=== PATIENT | male | born 1985 | race Two or more races ===

== ENCOUNTER 2020-05-19 11:49 | Outpatient (REF) | payer OTHER, SELFPAY | END 2020-05-19 11:50 | disposition home or self-care (01) | LOC: HO.LAB 11:49 | PROVIDERS: Visit Provider Internal Medicine | DX: Z20.828 Contact with and (suspected) exposure to other viral communicable diseases (principal) | CPT/HCPCS: 36415; 87635 ==

== ENCOUNTER 2020-05-22 08:09 | Outpatient (REF) | payer OTHER, SELFPAY ==
[2020-05-22 09:27] LABS: SARS COV2 PCR INHOUSE POSITIVE (Negative)
--- NOTE | 2020-05-23 12:09 | MHC.IC ---
COVID INFORMATION GIVEN TO GAY TORRES AT [facility] ON 05/22/2020
== END 2020-05-22 08:10 | disposition home or self-care (01) ==
LOC: HO.LAB 08:09
PROVIDERS: PCP Internal Medicine; Visit Provider Internal Medicine
DX: Z20.828 Contact with and (suspected) exposure to other viral communicable diseases (principal)
CPT/HCPCS: 36415; 87635

== ENCOUNTER 2020-05-29 21:25 | Emergency (ER) | payer OTHER, SELFPAY ==
[2020-05-29 21:28] VITALS: PULSE 109; RESP 18; TEMP 36.9; O2SAT 97; BMI 36.2
--- NOTE | 2020-05-29 21:40 | XR_ITS ---
EXAMINATION: XR CHEST CLINICAL INFORMATION: Chest tightness COMPARISON: 11/24/2019 TECHNIQUE: Frontal view of the chest was obtained. FINDINGS: No significant abnormality is noted involving the heart, lungs, mediastinum, bony thorax or soft tissues. IMPRESSION: Unremarkable examination.
--- NOTE | 2020-05-29 21:40 | ECG_ITS ---
Test Reason : CHEST TIGHTNESS Blood Pressure : / mmHG Vent. Rate : 092 BPM Atrial Rate : 092 BPM P-R Int : 144 ms QRS Dur : 082 ms QT Int : 340 ms P-R-T Axes : 052 008 046 degrees QTc Int : 420 ms Normal sinus rhythm Possible Left atrial enlargement Borderline ECG No significant changes seen Referred By: Generic ED Physician Electronically Signed By:DESTIN JACOBS MD
[2020-05-29 21:59] LABS: MANUAL DIFF FLAG NO
[2020-05-29 22:00] LABS: Basophils Absolute Auto 0.1 X10*3/uL (0.0-0.2); Basophils Percent Auto 0.6 % (0-2); Eosinophils Absolute Auto 0.2 X10*3/uL (0.0-0.4); Eosinophils Percent Auto 2.2 % (0-4); Hematocrit 44.4 % (42-52); Hemoglobin 14.5 g/dl (14.0-18.0); Imm Gran Abs Auto 0.02 X10*3/uL (0.00-0.03); Imm Gran Pct Auto 0.2 % (0.0-0.4); Lymphocytes Absolute Auto 1.9 X10*3/uL (1.2-4.9); Lymphocytes Percent Auto 19.2 % (20-40); Mean Corpuscular HGB Conc 32.7 g/dl (31.0-36.0); Mean Corpuscular Hemoglobin 28.7 pg (27.0-33.0); Mean Corpuscular Volume 87.9 fL (80-98); Mean Platelet Volume 10.6 fL (9.4-12.4); Monocytes Absolute Auto 0.8 X10*3/uL (0.1-1.2); Monocytes Percent Auto 8.4 % (2-11); Neutrophils Absolute Auto 6.9 X10*3/uL (2.0-8.3); Neutrophils Percent Auto 69.4 % (45-73); Platelet Count 360 X10*3/uL (160-400); Red Blood Count 5.05 X10*6/uL (4.60-5.80); Red Cell Distribution Width 12.4 % (11.0-16.0)
--- NOTE | 2020-05-29 22:12 | ED.CHESTPAIN ---
HPI - Chest Pain General Chief Complaint: Chest Pain Stated Complaint: CHEST TIGHTNESS Time Seen by Provider: 05/29/20 22:12 Source: patient Mode of arrival: ambulatory Limitations: no limitations History of Present Illness HPI narrative: patient was positive for COVID 19 05/18 was doing better for last 4 days began feeling chest tightness and palpitation heart rate reaching to 110 denies any shortness of breath or cough otherwise he feels fine patient denies any caffeine use or any anxiety MD complaint: chest discomfort Onset (ago): day(s) (4) Timing of current episode: episodic Prior episodes: No Onset: during rest Quality: tightness Exacerbating factors: nothing Context: recent illness Risk Factors Coronary artery disease risk factors: none Thoracic aortic dissection risk factors: none Related Data Allergies Allergy/AdvReac Type Severity Reaction Status Date / Time No Known Allergies Allergy Unverified 05/04/20 16:39 [No Known Allergies*] Review of Systems Review of Systems: REVIEW OF SYSTEMS: Pertinent positives and negatives are stated above in the history. GEN: no fevers, chills, fatigue HEENT: no nasal congestion, sore throat, ear pain NEURO: no headache, dizziness, focal weakness PULM: no cough, shortness of breath CV: no LE edema ABD: no abdominal pain, nausea, vomiting, diarrhea : no dysuria, urgency, frequency SKIN: no rash ROS otherwise negative x 10 PMFSH Past Medical History Medical History No known health problems Surgical History No history of previous surgery Social History Social History Alcohol intake: never Smoking Status: Never smoker Use of substances other than those prescribed or required for medical reasons: No Advance Directives: No Advance Directives Information Provided: Yes Physical Exam Vital Signs: Vital Signs: Vital Signs Temp Pulse Resp Pulse Ox 05/30/20 00:11 88 98 05/29/20 21:28 98.5 F 109 H 18 97 Body Mass Index 36.2 Appearance: Alert. Oriented X3. No acute distress. Eyes: Pupils equal, round and reactive to light. ENT: Pharynx normal. Neck: Normal inspection. Neck supple. CVS: sinus tachycardia, Pulses normal. no murmur Respiratory: No respiratory distress. Breath sounds normal. Abdomen: Soft and nontender. Skin: Skin warm and dry. Normal skin color. Normal skin turgor. Extremities: No lower extremity edema. Good range of movement Neuro: Oriented X 3. No motor deficit. No sensory deficit. Course Course Course Narrative: patient with benign palpitation D-dimer negative chest x-ray negative blood workup also negative patient reassured, also advised to drink plenty of fluids and to relax. Patient also has chronically elevated creatinine advised to follow-up with primary care doctor MDM - Chest Pain Differential Diagnosis Differential diagnosis: Unlikely pneumothorax, atypical chest pain, costochondritis and chest pain Differential diagnosis: pulmonary embolus Lab Data Result diagrams: 05/29/20 21:54 05/29/20 21:54 Labs: Lab Results 05/29/20 05/29/20 05/29/20 Range/Units 21:54 21:54 21:54 WBC 10.0 (4.8-10.8) X10*3/uL RBC 5.05 (4.60-5.80) X10*6/uL Hgb 14.5 (14.0-18.0) g/dl Hct 44.4 (42-52) % MCV 87.9 (80-98) fL MCH 28.7 (27.0-33.0) pg MCHC 32.7 (31.0-36.0) g/dl RDW 12.4 (11.0-16.0) % Plt Count 360 (160-400) X10*3/uL MPV 10.6 (9.4-12.4) fL Immature Gran % (Auto) 0.2 (0.0-0.4) % Neut % (Auto) 69.4 (45-73) % Lymph % (Auto) 19.2 L (20-40) % [place] % (Auto) 8.4 (2-11) % Eos % (Auto) 2.2 (0-4) % Baso % (Auto) 0.6 (0-2) % Lymph # (Auto) 1.9 (1.2-4.9) X10*3/uL [place] # (Auto) 0.8 (0.1-1.2) X10*3/uL Eos # (Auto) 0.2 (0.0-0.4) X10*3/uL Baso # (Auto) 0.1 (0.0-0.2) X10*3/uL Abs Immat Gran (auto) 0.02 (0.00-0.03) X10*3/uL Absolute Neuts (auto) 6.9 (2.0-8.3) X10*3/uL Absolute Nucleated RBC 0.000 (0.0-0.012) X10*3/uL Nucleated RBC % (auto) 0.0 (0.0-0.2) /100WBC D-Dimer NG/ML Hold Blue Top SEE NOTE Sodium 142 (135-145) mmol/L Potassium 4.1 (3.3-5.1) mmol/l Chloride 107 (96-108) mmol/L Carbon Dioxide 23 (22-29) mmol/L Anion Gap 16 (12-20) BUN 21 H (9-16) mg/dL Creatinine 1.41 H (0.5-1.4) mg/dL Estim Creat Clear Calc 77.7 Estimated GFR 58 Random Glucose 139 H (60-115) mg/dL Calcium 8.9 (8.4-10.2) mg/dL Troponin I High Sens (<3.5-35.0) ng/L 05/29/20 05/29/20 Range/Units 21:54 23:46 WBC (4.8-10.8) X10*3/uL RBC (4.60-5.80) X10*6/uL Hgb (14.0-18.0) g/dl Hct (42-52) % MCV (80-98) fL MCH (27.0-33.0) pg MCHC (31.0-36.0) g/dl RDW (11.0-16.0) % Plt Count (160-400) X10*3/uL MPV (9.4-12.4) fL Immature Gran % (Auto) (0.0-0.4) % Neut % (Auto) (45-73) % Lymph % (Auto) (20-40) % [place] % (Auto) (2-11) % Eos % (Auto) (0-4) % Baso % (Auto) (0-2) % Lymph # (Auto) (1.2-4.9) X10*3/uL [place] # (Auto) (0.1-1.2) X10*3/uL Eos # (Auto) (0.0-0.4) X10*3/uL Baso # (Auto) (0.0-0.2) X10*3/uL Abs Immat Gran (auto) (0.00-0.03) X10*3/uL Absolute Neuts (auto) (2.0-8.3) X10*3/uL Absolute Nucleated RBC (0.0-0.012) X10*3/uL Nucleated RBC % (auto) (0.0-0.2) /100WBC D-Dimer < 200 NG/ML Hold Blue Top Sodium (135-145) mmol/L Potassium (3.3-5.1) mmol/l Chloride (96-108) mmol/L Carbon Dioxide (22-29) mmol/L Anion Gap (12-20) BUN (9-16) mg/dL Creatinine (0.5-1.4) mg/dL Estim Creat Clear Calc Estimated GFR Random Glucose (60-115) mg/dL Calcium (8.4-10.2) mg/dL Troponin I High Sens < 3.5 (<3.5-35.0) ng/L ECG Data ECG #1: Attestation: I personally reviewed and interpreted this ECG as follows: ECG interpretation date: 05/29/20 ECG interpretation time: 21:46 Prior ECG tracings: available for review Interpretation: EKGRate: 92 Rhythm: sinus [place]: normal Normal P waves. Normal RIVERA. Normal QRS complex. ST T wave : normal EKG Discharge Plan Discharge Clinical Impression: Heart palpitations Patient Disposition: Home, Self-Care Instructions: Heart Palpitations (ED) Additional Instructions: drink plenty of fluids and follow with primary care doctor. 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
[2020-05-29 22:31] LABS: Anion Gap 16 (12-20); Blood Urea Nitrogen 21 mg/dL (9-16); Calcium 8.9 mg/dL (8.4-10.2); Carbon Dioxide 23 mmol/L (22-29); Chloride 107 mmol/L (96-108); Creatinine Clr Calc Pharmacy 77.7; Estimated Glomerular Filt Rate 58; Glucose Random 139 mg/dL (60-115); Potassium 4.1 mmol/l (3.3-5.1); Sodium 142 mmol/L (135-145)
[2020-05-29 22:36] LABS: Troponin-I High Sensitivity < 3.5 ng/L (<3.5-35.0)
[2020-05-30 00:11] VITALS: PULSE 88; O2SAT 98
[2020-05-30 00:41] LABS: D Dimer < 200 NG/ML
== END 2020-05-30 01:13 | disposition home or self-care (01) ==
PROVIDERS: Emergency Provider Internal Medicine; PCP Internal Medicine
DX: R00.2 Palpitations (principal); Z86.19 Personal history of other infectious and parasitic diseases
CPT/HCPCS: 36415; 71045; 80048; 84484; 85025; 85379; 93005; 99284

== ENCOUNTER 2020-06-19 15:01 | Emergency (ER) | payer OTHER, SELFPAY ==
[2020-06-19 15:30] VITALS: BP 149/77; PULSE 124; RESP 17; TEMP 37.1; O2SAT 97; BMI 36.0
--- NOTE | 2020-06-19 15:44 | ED_ITS ---
HPI - Extremity Problem General Chief complaint: Extremity Problem <OG Redmond Last Filed: 06/19/20 15:50> Stated complaint: gout <OG Redmond Last Filed: 06/19/20 15:50> Time Seen by Provider: 06/19/20 15:16 <OG Redmond Last Filed: 06/19/20 15:50> Source: patient <OG Redmond Last Filed: 06/19/20 15:50> Mode of arrival: ambulatory <OG Redmond Last Filed: 06/19/20 15:50> Limitations: no limitations <OG Redmond Last Filed: 06/19/20 15:50> History of Present Illness HPI Narrative: 34yoM c PMHx of Gout presenting to the ED c c/o left ankle pain swelling that started yesterday worse today. Reports this is the way his gout usually always presents in the left ankle. He reports that he has been drinking alcohol and eating more red meat lately. Denies any other symptoms complaints or concerns at this time. <OG Redmond Last Filed: 06/19/20 15:50> Related Data Home medications: Home Medications Medication Instructions Recorded Confirmed No Known Home Meds 06/19/20 06/19/20 Previous Rx's Medication Instructions Recorded naproxen 500 mg PO BID PRN #20 tab NS 06/19/20 prednisone 40 mg PO DAILY 7 Days #14 tab NS 06/19/20 tramadol 50 mg PO Q8H PRN #20 tab NS 06/19/20 <OG Redmond Last Filed: 06/19/20 15:50> Allergies/Adverse reactions: Allergies Allergy/AdvReac Type Severity Reaction Status Date / Time No Known Allergies Allergy Verified 06/19/20 15:29 [No Known Allergies*] <OG Redmond Last Filed: 06/19/20 15:50> Review of Systems Review of Systems: Constitutional:No Fever, No Chills Cardiovascular : No Chest Pain, No SOB, No Dyspnea on Exertion, No Orthopnea, No Edema, No Palpitations Respiratory : No Cough, No Sputum, No Wheezing, No Dyspnea Musculoskeletal : + joint pain, + Joint Swelling Skin : No Skin Lesions, No rash Neuro : No Weakness Heme/Lymph: No Lymphadenopathy <OG Redmond - Last Filed: 06/19/20 15:50> Yes all other systems are reviewed and are negative <OG Redmond - Last Filed: 06/19/20 15:50> [facility] Past Medical History Attestation statement: The following information was validated with the patient. <OG Redmond - Last Filed: 06/19/20 15:50> Medical History: Medical History No known health problems <OG Redmond - Last Filed: 06/19/20 15:50> Surgical History: Surgical History No history of previous surgery <OG Redmond - Last Filed: 06/19/20 15:50> Social History Social History: Social History Alcohol intake: never Smoking Status: Never smoker Use of substances other than those prescribed or required for medical reasons: No Advance Directives: No Advance Directives Information Provided: Yes <OG Redmond - Last Filed: 06/19/20 15:50> Physical Exam Vital Signs: Vital Signs: Vital Signs Temp Pulse Resp BP Pulse Ox 06/19/20 15:30 98.7 F 124 H 17 149/77 H 97 Body Mass Index 36.0 vital signs have been reviewed as normal and appeared to be correct. Blood pressure Hypertensive. Heart rate tachycardic. Respiration rate normal. Temperature normal. Oxygen saturation normal. <OG Redmond - Last Filed: 06/19/20 15:50> Vital Signs: Vital Signs Temp Pulse Resp BP Pulse Ox 06/19/20 15:30 98.7 F 124 H 17 149/77 H 97 Body Mass Index 36.0 <Daniel Rasmussen MD - Last Filed: 06/19/20 15:54> Appearance: Alert. Oriented X3. No acute distress. Head: Normal external exam. Normocephalic. Eyes: PERRLA. EOMI. Conjunctiva and sclera normal. Eyelids normal. ENT:Pharynx normal. Uvula midline. Moist mucous membranes. Neck: Normal inspection. Neck supple. FROM. No adenopathy. Thyroid Normal. No meningeal signs. No neck mass noted. CVS: Normal heart rate and rhythm. Heart sound normal. No murmurs noted. Pulses normal throughout. Respiratory: No respiratory distress. Painless inspiration. Breath sounds normal. Back: Full range of motion noted. Skin: Skin warm and dry. Normal skin color. Normal skin turgor. No rashes/lesions/lacerations noted. Extremities:Left ankle medial and lateral aspect c moderate STS and TTP. No calf tenderness. No lower extremity edema. Extremities exhibit normal range of motion. Extremities nontender. Neuro: Oriented X 3. No motor deficit. No sensory deficit. Reflexes normal. <OG Redmond - Last Filed: 06/19/20 15:50> Course Course Course Narrative: 34yoM c PMHx of Gout presenting to the ED c c/o left ankle pain swelling that started yesterday worse today. Reports this is the way his gout usually always presents in the left ankle. He reports that he has been drinking alcohol and eating more red meat lately. Denies any other symptoms complaints or concerns at this time. - patient with acute gout flare up he is hypertensive and tachycardic most l ikely related to his pain due to he denies any other symptoms including chest pain or shortness of breath or calf tenderness. Will DC home with symptomatic treatment along with instructions return if any new or worsening symptoms to follow-up with primary care provider. Patient understands agrees the plan. <OG Redmond - Last Filed: 06/19/20 15:50> I have reviewed the chart <Daniel Rasmussen MD - Last Filed: 06/19/20 15:54> Discharge Plan Discharge Clinical Impression: Gout <OG Redmond - Last Filed: 06/19/20 15:50> Patient Disposition: Home, Self-Care <OG Redmond - Last Filed: 06/19/20 15:50> Instructions: Crutch Instructions (ED), Gout (ED) <OG Redmond - Last Filed: 06/19/20 15:50> Prescriptions: New naproxen 500 mg tablet 500 mg PO BID PRN (Reason: pain) Qty: 20 RF: 0 prednisone 20 mg tablet 40 mg PO DAILY 7 Days Qty: 14 RF: 0 tramadol 50 mg tablet 50 mg PO Q8H PRN (Reason: pain) Qty: 20 RF: 0 No Action No Known Home Meds RF: 0 <OG Redmond - Last Filed: 06/19/20 15:50> Referrals: Scott Bullock MD [Primary Care Provider] - 2 days <OG Redmond - Last Filed: 06/19/20 15:50> Stand Alone Forms: Work/School Release <OG Redmond - Last Filed: 06/19/20 15:50> Print Language: Surinamese <OG Redmond - Last Filed: 06/19/20 15:50>
[2020-06-19] MEDS: predniSONE 20 MG TABLET 60 MG PO (15:56)
[2020-06-19] MEDS: NaPROXEN 500 MG TABLET PO (15:57)
== END 2020-06-19 16:09 | disposition home or self-care (01) ==
LOC: HO.ED 15:47
PROVIDERS: Emergency Provider Emergency Medicine; PCP Internal Medicine
DX: M10.9 Gout, unspecified (principal); M25.572 Pain in left ankle and joints of left foot; M25.472 Effusion, left ankle
CPT/HCPCS: 99283

== ENCOUNTER 2020-08-30 19:32 | Emergency (ER) | payer OTHER, SELFPAY ==
--- NOTE | 2020-08-30 08:14 | ECG_ITS ---
Test Reason : CHEST PAIN Blood Pressure : / mmHG Vent. Rate : 082 BPM Atrial Rate : 082 BPM P-R Int : 128 ms QRS Dur : 080 ms QT Int : 358 ms P-R-T Axes : 045 001 047 degrees QTc Int : 418 ms Normal sinus rhythm Normal ECG When compared with ECG of 29-MAY-2020 21:46, No significant change was found Referred By: Randa Ba Electronically Signed By:MAYDA PENG MD
--- NOTE | 2020-08-30 19:38 | XR_ITS ---
EXAMINATION: XR CHEST CLINICAL INFORMATION: Chest pain COMPARISON: 05/29/2020 TECHNIQUE: Frontal view of the chest was obtained. FINDINGS: No acute finding. No obvious failure or infiltrate. There is no effusion. Mediastinal contours are within normal limits. The hilar structures are comparable. There is no effusion. XR/XR chest 1V IMPRESSION: No acute process.
[2020-08-30 20:01] VITALS: BP 128/79; PULSE 88; RESP 16; TEMP 36.8; O2SAT 98; BMI 36.1
--- NOTE | 2020-08-30 21:14 | ED.CHESTPAIN ---
HPI - Chest Pain General Chief Complaint: Chest Pain Stated Complaint: chest pain Time Seen by Provider: 08/30/20 21:14 Source: patient Mode of arrival: ambulatory Limitations: no limitations History of Present Illness MD complaint: chest pain Pertinent past history: other (hx of palpitations and chest pain in past with negative EKG, troponin, ddimer) Onset (ago): hour(s) (2.5 but had episode yesterday reoccurred tonight at rest) Timing of current episode: constant Prior episodes: Yes Onset: during rest Pain location: left chest Pain radiation: left arm Severity: moderate Quality: aching and heaviness Relieving factors: nothing Exacerbating factors: supine Associated symptoms: dyspnea Treatment prior to arrival: none Related Data Previous Rx's Medication Instructions Recorded naproxen 500 mg PO BID PRN #20 tab NS 06/19/20 prednisone 40 mg PO DAILY 7 Days #14 tab NS 06/19/20 tramadol 50 mg PO Q8H PRN #20 tab NS 06/19/20 famotidine [Pepcid] 20 mg PO DAILY PRN #30 tab 08/30/20 Allergies Allergy/AdvReac Type Severity Reaction Status Date / Time No Known Allergies Allergy Verified 06/19/20 15:29 [No Known Allergies*] Review of Systems Review of Systems: Constitutional : No Weight loss, No Fever, No Chills ENT/Mouth : No sore throat, No Rhinorrhea Eyes: No Eye Pain, No Swelling Cardiovascular : pos Chest Pain, pos SOB, no Dyspnea on Exertion, No Orthopnea, No Edema, No Palpitations Respiratory : No Cough, No Sputum Gastrointestinal : no Nausea, No Vomiting, No Diarrhea, No abdominal Pain, No Hematochezia, No Melena Genitourinary : No Dysuria, No Urinary Frequency Musculoskeletal : No joint pain, No Myalgias, No Joint Swelling Skin : No Skin Lesions, No rash Neuro : No Weakness, No Numbness, No Dizziness, No Headache Psych : No Anxiety/Panic, No Depression Heme/Lymph: No Bruising, No Lymphadenopathy Endocrine : No Polyuria, No Polydipsia All other systems reviewed and are negative [facility] Past Medical History Attestation statement: The following information was validated with the patient. Medical History No known health problems Surgical History No history of previous surgery Social History Social History Alcohol intake: never Smoking Status: Never smoker Advance Directives: No Advance Directives Information Provided: Yes Physical Exam Vital Signs: Vital Signs: Last Vital Signs Temp 98.2 F 08/30/20 20:01 Pulse 88 08/30/20 20:01 Resp 16 08/30/20 20:01 BP 128/79 08/30/20 20:01 Pulse Ox 98 08/30/20 20:01 Body Mass Index 36.1 Appearance: Alert. Oriented X3. No acute distress. Eyes: Pupils equal, round and reactive to light. ENT: Pharynx normal. Neck: Normal inspection. Neck supple. CVS: Normal heart rate and rhythm. Pulses normal. Chest: nontender Respiratory: No respiratory distress. Breath sounds normal. Abdomen: Soft and non-tender. Skin: Skin warm and dry. Normal skin color. Normal skin turgor. Extremities: No lower extremity edema. No calf ttp Neuro: Oriented X 3. No motor deficit. No sensory deficit. Course Course Course Narrative: repeat trop negative, EKG nonischemic stable for DC CRI 1.5 to 1.4 today 1.7 given IVF will refer to nephrology and tell him to avoid NSAIDs MDM - Chest Pain MDM Narrative Medical decision making narrative: 35 yo male with chest pain yesterday then reoccured around 7pm tonight while at rest felt palpitations, has no sig ACS risk factors it seems atypical in nature PERC negative - distal pulses intact at this time will obtain troponin x 2, possible acid reflux hx of same in past but not on PPI at this time, dispo per results and findings. Lab Data Result diagrams: 08/30/20 21:20 08/30/20 21:20 Labs: Lab Results 08/30/20 08/30/20 08/30/20 Range/Units 21:20 21:20 21:20 WBC 9.7 (4.8-10.8) X10*3/uL RBC 5.06 (4.60-5.80) X10*6/uL Hgb 14.8 (14.0-18.0) g/dl Hct 44.6 (42-52) % MCV 88.1 (80-98) fL MCH 29.2 (27.0-33.0) pg MCHC 33.2 (31.0-36.0) g/dl RDW 12.8 (11.0-16.0) % Plt Count 320 (160-400) X10*3/uL MPV 11.1 (9.4-12.4) fL Immature Gran % (Auto) 0.1 (0.0-0.4) % Neut % (Auto) 57.0 (45-73) % Lymph % (Auto) 31.8 (20-40) % [place] % (Auto) 7.7 (2-11) % Eos % (Auto) 2.9 (0-4) % Baso % (Auto) 0.5 (0-2) % Lymph # (Auto) 3.1 (1.2-4.9) X10*3/uL [place] # (Auto) 0.8 (0.1-1.2) X10*3/uL Eos # (Auto) 0.3 (0.0-0.4) X10*3/uL Baso # (Auto) 0.1 (0.0-0.2) X10*3/uL Abs Immat Gran (auto) 0.01 (0.00-0.03) X10*3/uL Absolute Neuts (auto) 5.6 (2.0-8.3) X10*3/uL Absolute Nucleated RBC 0.000 (0.0-0.012) X10*3/uL Nucleated RBC % (auto) 0.0 (0.0-0.2) /100WBC Hold Blue Top SEE NOTE Sodium 140 (135-145) mmol/L Potassium 4.2 (3.3-5.1) mmol/l Chloride 104 (96-108) mmol/L Carbon Dioxide 26 (22-29) mmol/L Anion Gap 14 (12-20) BUN 23 H (9-16) mg/dL Creatinine 1.71 H (0.5-1.4) mg/dL Estim Creat Clear Calc 63.4 Estimated GFR 46 Random Glucose 100 (60-115) mg/dL Calcium 9.1 (8.4-10.2) mg/dL Total Bilirubin 0.4 (0.0-1.0) mg/dL AST 24 (5-37) U/L ALT 37 (0-40) U/L Alkaline Phosphatase 52 (39-117) U/L Troponin I High Sens (<3.5-35.0) ng/L Total Protein 7.4 (6.5-8.0) g/dL Albumin 4.0 (3.5-5.0) g/dL 08/30/20 Range/Units 21:20 WBC (4.8-10.8) X10*3/uL RBC (4.60-5.80) X10*6/uL Hgb (14.0-18.0) g/dl Hct (42-52) % MCV (80-98) fL MCH (27.0-33.0) pg MCHC (31.0-36.0) g/dl RDW (11.0-16.0) % Plt Count (160-400) X10*3/uL MPV (9.4-12.4) fL Immature Gran % (Auto) (0.0-0.4) % Neut % (Auto) (45-73) % Lymph % (Auto) (20-40) % [place] % (Auto) (2-11) % Eos % (Auto) (0-4) % Baso % (Auto) (0-2) % Lymph # (Auto) (1.2-4.9) X10*3/uL [place] # (Auto) (0.1-1.2) X10*3/uL Eos # (Auto) (0.0-0.4) X10*3/uL Baso # (Auto) (0.0-0.2) X10*3/uL Abs Immat Gran (auto) (0.00-0.03) X10*3/uL Absolute Neuts (auto) (2.0-8.3) X10*3/uL Absolute Nucleated RBC (0.0-0.012) X10*3/uL Nucleated RBC % (auto) (0.0-0.2) /100WBC Hold Blue Top Sodium (135-145) mmol/L Potassium (3.3-5.1) mmol/l Chloride (96-108) mmol/L Carbon Dioxide (22-29) mmol/L Anion Gap (12-20) BUN (9-16) mg/dL Creatinine (0.5-1.4) mg/dL Estim Creat Clear Calc Estimated GFR Random Glucose (60-115) mg/dL Calcium (8.4-10.2) mg/dL Total Bilirubin (0.0-1.0) mg/dL AST (5-37) U/L ALT (0-40) U/L Alkaline Phosphatase (39-117) U/L Troponin I High Sens < 3.5 (<3.5-35.0) ng/L Total Protein (6.5-8.0) g/dL Albumin (3.5-5.0) g/dL ECG Data ECG #1: Attestation: I personally reviewed and interpreted this ECG as follows: ECG interpretation date: 08/30/20 ECG interpretation time: 21:15 Interpretation: Rate: 92 Rhythm: NSR [place]: normal Normal P waves. Normal RIVERA. Normal QRS complex. ST T wave : normal no TERELL qTC: normal prior studies: no acute ischemia The study has been interpreted contemporaneously by me. . Scores Additional Scores PERC Score: Score: 0 Discharge Plan Discharge Clinical Impression: Atypical chest pain, Chronic renal insufficiency Patient Disposition: Home, Self-Care Instructions: Chest Pain (ED) Additional Instructions: return to ED for any worsening symptoms or concerns AVOID MOTRIN, ADVIL, NAPROSYN, ASPIRIN, ANY NSAIDS Prescriptions: New famotidine [Pepcid] 20 mg tablet 20 mg PO DAILY PRN (Reason: abdominal discomfort) Qty: 30 RF: 0 No Action naproxen 500 mg tablet 500 mg PO BID PRN (Reason: pain) Qty: 20 RF: 0 prednisone 20 mg tablet 40 mg PO DAILY 7 Days Qty: 14 RF: 0 tramadol 50 mg tablet 50 mg PO Q8H PRN (Reason: pain) Qty: 20 RF: 0 Referrals: Scott Bullock MD [Primary Care Provider] - 2 days (you might want to discuss holter monitor if this continues) Juan C Robert MD [Physician] - 1 week Stand Alone Forms: Work/School Release
[2020-08-30 21:32] LABS: MANUAL DIFF FLAG NO
[2020-08-30 21:34] LABS: Basophils Absolute Auto 0.1 X10*3/uL (0.0-0.2); Basophils Percent Auto 0.5 % (0-2); Eosinophils Absolute Auto 0.3 X10*3/uL (0.0-0.4); Eosinophils Percent Auto 2.9 % (0-4); Hematocrit 44.6 % (42-52); Hemoglobin 14.8 g/dl (14.0-18.0); Imm Gran Abs Auto 0.01 X10*3/uL (0.00-0.03); Imm Gran Pct Auto 0.1 % (0.0-0.4); Lymphocytes Absolute Auto 3.1 X10*3/uL (1.2-4.9); Lymphocytes Percent Auto 31.8 % (20-40); Mean Corpuscular HGB Conc 33.2 g/dl (31.0-36.0); Mean Corpuscular Hemoglobin 29.2 pg (27.0-33.0); Mean Corpuscular Volume 88.1 fL (80-98); Mean Platelet Volume 11.1 fL (9.4-12.4); Monocytes Absolute Auto 0.8 X10*3/uL (0.1-1.2); Monocytes Percent Auto 7.7 % (2-11); Neutrophils Absolute Auto 5.6 X10*3/uL (2.0-8.3); Platelet Count 320 X10*3/uL (160-400); Red Blood Count 5.06 X10*6/uL (4.60-5.80); Red Cell Distribution Width 12.8 % (11.0-16.0); White Blood Count 9.7 X10*3/uL (4.8-10.8)
[2020-08-30] MEDS: Cyclobenzaprine HCl 10 MG TABLET PO (21:42)
[2020-08-30] MEDS: Famotidine 20 MG TABLET PO (21:43)
[2020-08-30 22:00] LABS: Alanine Aminotransferase 37 U/L (0-40); Alkaline Phosphatase 52 U/L (39-117); Anion Gap 14 (12-20); Aspartate Amino Transferase 24 U/L (5-37); Bilirubin Total 0.4 mg/dL (0.0-1.0); Blood Urea Nitrogen 23 mg/dL (9-16); Calcium 9.1 mg/dL (8.4-10.2); Carbon Dioxide 26 mmol/L (22-29); Chloride 104 mmol/L (96-108); Creatinine Clr Calc Pharmacy 63.4; Estimated Glomerular Filt Rate 46; Glucose Random 100 mg/dL (60-115); Potassium 4.2 mmol/l (3.3-5.1); Sodium 140 mmol/L (135-145); Total Protein 7.4 g/dL (6.5-8.0); Troponin-I High Sensitivity < 3.5 ng/L (<3.5-35.0)
[2020-08-30] MEDS: 0.9 % Sodium Chloride 1,000 ML 999 ML IVCONT (22:16)
[2020-08-31] VITALS: BP 112/78; PULSE 81; RESP 16; O2SAT 95
[2020-08-31 00:07] LABS: Troponin-I High Sensitivity < 3.5 ng/L (<3.5-35.0)
== END 2020-08-31 00:37 | disposition home or self-care (01) ==
PROVIDERS: Emergency Provider Emergency Medicine; PCP Internal Medicine
DX: R07.89 Other chest pain (principal); N18.9 Chronic kidney disease, unspecified
CPT/HCPCS: 36415; 71045; 80053; 84484; 85025; 93005; 96360; 99284

== ENCOUNTER 2020-09-11 10:57 | Outpatient (REF) | payer SELFPAY ==
[2020-09-11 11:37] LABS: Cholesterol 81 mg/dL
[2020-09-12 05:04] LABS: SARS COV2 IgG Negative (Negative)
== END 2020-09-11 10:58 | disposition home or self-care (01) ==
LOC: HO.LNC 10:57
PROVIDERS: Visit Provider Pathology Anatomic Pathology & Clinical Pathology
DX: Z13.89 Encounter for screening for other disorder (principal)
CPT/HCPCS: 36415; 82465; 86769

== ENCOUNTER 2020-10-03 16:01 | Outpatient (REF) | payer OTHER, SELFPAY ==
--- NOTE | ~2020-10-03 | US_ITS ---
EXAMINATION: US RETROPERITONEAL LIMITED (RENAL ONLY) CLINICAL INFORMATION: Abnormal findings of blood chemistry. COMPARISON: X-ray KUB 06/28/2019. X-ray abdomen 03/26/2014. CT abdomen pelvis 06/24/2019. TECHNIQUE: Real-time imaging of the kidneys. FINDINGS: RIGHT KIDNEY: 7.8 x 4.1 x 4.6 cm (SAG x AP x TRV). The kidney is normal in size, contour, and echogenicity. Renal cortical thickness is normal. No calculi or focal parenchymal lesions. No hydronephrosis. LEFT KIDNEY: 8.9 x 5.9 x 5.5 cm (SAG x AP x TRV). The kidney is normal in size, contour, and echogenicity. Renal cortical thickness is normal. No calculi or focal parenchymal lesions. No hydronephrosis. Incidental note made of hepatic steatosis as well as seen on the most recent CT scan. US/US renal BI IMPRESSION: Normal-appearing kidneys. Incidentally noted hepatic steatosis.
== END 2020-10-03 16:02 | disposition home or self-care (01) ==
LOC: HO.US 16:01
PROVIDERS: Visit Provider Internal Medicine
DX: R79.89 Other specified abnormal findings of blood chemistry (principal)
CPT/HCPCS: 76775

== ENCOUNTER 2020-11-15 14:34 | Emergency (ER) | payer OTHER, SELFPAY ==
--- NOTE | 2020-11-15 | ECG_ITS ---
Test Reason : SYNCOPE Blood Pressure : / mmHG Vent. Rate : 074 BPM Atrial Rate : 074 BPM P-R Int : 140 ms QRS Dur : 082 ms QT Int : 366 ms P-R-T Axes : 047 002 051 degrees QTc Int : 406 ms Normal sinus rhythm Normal ECG When compared with ECG of 30-AUG-2020 19:37, No significant change was found Referred By: Generic ED Physician Electronically Signed By:Brian Yeh
[2020-11-15 15:32] VITALS: BP 130/76; PULSE 79; RESP 18; TEMP 36.6; O2SAT 98; BMI 31.7
[2020-11-15 20:54] LABS: MANUAL DIFF FLAG NO
[2020-11-15 20:57] LABS: Basophils Percent Auto 0.6 % (0-2); Eosinophils Absolute Auto 0.2 X10*3/uL (0.0-0.4); Eosinophils Percent Auto 2.9 % (0-4); Hematocrit 46.5 % (42-52); Hemoglobin 14.8 g/dl (14.0-18.0); Lymphocytes Absolute Auto 2.4 X10*3/uL (1.2-4.9); Lymphocytes Percent Auto 38.8 % (20-40); Mean Corpuscular HGB Conc 31.8 g/dl (31.0-36.0); Mean Corpuscular Hemoglobin 28.4 pg (27.0-33.0); Mean Corpuscular Volume 89.3 fL (80-98); Mean Platelet Volume 12.5 fL (9.4-12.4); Monocytes Absolute Auto 0.5 X10*3/uL (0.1-1.2); Monocytes Percent Auto 8.4 % (2-11); Neutrophils Percent Auto 49.3 % (45-73); Platelet Count 277 X10*3/uL (160-400); Red Blood Count 5.21 X10*6/uL (4.60-5.80); White Blood Count 6.2 X10*3/uL (4.8-10.8)
[2020-11-15 21:19] LABS: Alanine Aminotransferase 34 U/L (0-40); Albumin Level 4.3 g/dL (3.5-5.0); Alkaline Phosphatase 59 U/L (39-117); Anion Gap 14 (12-20); Aspartate Amino Transferase 20 U/L (5-37); Bilirubin Total 0.5 mg/dL (0.0-1.0); Blood Urea Nitrogen 18 mg/dL (9-16); Calcium 9.7 mg/dL (8.4-10.2); Carbon Dioxide 28 mmol/L (22-29); Chloride 103 mmol/L (96-108); Creatinine Clr Calc Pharmacy 83.3; Estimated Glomerular Filt Rate > 60; Glucose Random 87 mg/dL (60-115); Potassium 4.2 mmol/L (3.3-5.1); Sodium 141 mmol/L (135-145); Total Protein 7.5 g/dL (6.5-8.0)
--- NOTE | 2020-11-15 22:00 | ED_ITS ---
HPI - Dizziness General Chief Complaint: Syncope Stated Complaint: passing out Time Seen by Provider: 11/15/20 21:56 History of Present Illness HPI Narrative: Patient 35-year-old male presents today with having episode of dizziness. 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 Almost passed out. Sent down for further evaluation. Patient has been trying to lose weight been eating less than usual. Lost about 25 lb in the last month. Patient claims that he did not have any chest pain. No bloody stool. Had a meal couple hours ago. No coughing or congestion or upper respiratory symptoms. No history of sudden in the family. No leg pain. No history of blood clots. Patient from home. Related Data Previous Rx's Medication Instructions Recorded naproxen 500 mg PO BID PRN #20 tab NS 06/19/20 prednisone 40 mg PO DAILY 7 Days #14 tab NS 06/19/20 tramadol 50 mg PO Q8H PRN #20 tab NS 06/19/20 famotidine [Pepcid] 20 mg PO DAILY PRN #30 tab 08/30/20 Allergies Allergy/AdvReac Type Severity Reaction Status Date / Time No Known Allergies Allergy Verified 11/15/20 15:32 [No Known Allergies*] Review of Systems Review of Systems: Constitutional: No Weight loss, No Fever, No Chills, No Night Sweats, No Fatigue, No Malaise ENT/Mouth: No Hearing loss, No Ear Pain, No Nasal Congestion, No Sinus Pain, No Hoarseness, No sore throat, No Rhinorrhea, No Swallowing Difficulty Eyes: No Eye Pain, No Swelling, No Redness, No Foreign Body, No Discharge, No Vision Changes Cardiovascular: No Chest Pain, No SOB, No Dyspnea on Exertion, No Orthopnea, No Edema, No Palpitations Respiratory: No Cough, No Sputum, No Wheezing, No Smoke Exposure, No Dyspnea Gastrointestinal: No Nausea, No Vomiting, No Diarrhea, No Constipation, No abdominal Pain, No Hematochezia, No Melena Genitourinary: no irregular bleeding, No Dysuria, No Urinary Frequency, No Hematuria, No Urinary Incontinence, No Urgency, No Flank Pain, No Urinary Flow Changes, No Hesitancy Musculoskeletal: No joint pain, No Myalgias, No Joint Swelling Skin: No Skin Lesions, No rash Neuro: Positive Weakness, No Numbness, No Paresthesias, No Loss of Consciousness, positive Dizziness, No Headache Psych: No Anxiety/Panic, No Depression, No SI/HI/AH/VH, No Social Issues, Heme/Lymph: No Bruising, No Bleeding,No Lymphadenopathy Endocrine: No Polyuria, No Polydipsia, No Temperature Intolerance [facility] Past Medical History Attestation statement: The following information was validated with the patient. Medical History No known health problems Surgical History No history of previous surgery Social History Social History Alcohol intake: never Smoking Status: Never smoker Advance Directives: No Advance Directives Information Provided: Yes Physical Exam 2 Vital Signs: Vital Signs: Last Vital Signs Temp 97.0 F 11/16/20 00:00 Pulse 63 11/16/20 00:00 Resp 18 11/16/20 00:00 BP 111/63 11/16/20 00:00 Pulse Ox 100 11/16/20 00:00 Body Mass Index 31.7 Appearance: Alert. Oriented X3. No acute distress. Eyes: Pupils equal, round and reactive to light. ENT: Pharynx normal. Neck: Normal inspection. Neck supple. No lymph nodes noted. No crepitus CVS: Normal heart rate and rhythm. Pulses normal. Normal S1 and S2 Respiratory: No respiratory distress. Breath sounds normal. No Wheezing. No rales Abdomen: Soft and nontender. No rigidity. No distention. good BS x4 Skin: Skin warm and dry. Normal skin color. Normal skin turgor. Extremities: No lower extremity edema. Neurovascular intact to all extremities. No Lacerations. No Rash Neuro: Oriented X 3. No motor deficit. No sensory deficit. Moving all extermities. No slurred speech MDM - Dizziness MDM Narrative Medical decision making narrative: Patient given IV fluid. He is not orthostatic. Sugar repeat check was 97. Symptomatically improved. EKG showed a sinus pattern. Heart rate was 75 SC QRS QT within normal limits is no acute ST segment elevation noted. Ambulated well in the emergency department will ask patient not to exercise for now. Follow-up on an outpatient basis hydrate well and not follow his strict diet. Lab Data Attestation: I reviewed the patient's lab results. Result diagrams: 11/15/20 20:32 11/15/20 20:32 Labs: Lab Results 11/15/20 11/15/20 11/16/20 Range/Units 20:32 20:32 00:33 WBC 6.2 (4.8-10.8) X10*3/uL RBC 5.21 (4.60-5.80) X10*6/uL Hgb 14.8 (14.0-18.0) g/dl Hct 46.5 (42-52) % MCV 89.3 (80-98) fL MCH 28.4 (27.0-33.0) pg MCHC 31.8 (31.0-36.0) g/dl RDW 13.0 (11.0-16.0) % Plt Count 277 (160-400) X10*3/uL MPV 12.5 H (9.4-12.4) fL Immature Gran % (Auto) 0.0 (0.0-0.4) % Neut % (Auto) 49.3 (45-73) % Lymph % (Auto) 38.8 (20-40) % [place] % (Auto) 8.4 (2-11) % Eos % (Auto) 2.9 (0-4) % Baso % (Auto) 0.6 (0-2) % Lymph # (Auto) 2.4 (1.2-4.9) X10*3/uL [place] # (Auto) 0.5 (0.1-1.2) X10*3/uL Eos # (Auto) 0.2 (0.0-0.4) X10*3/uL Baso # (Auto) 0.0 (0.0-0.2) X10*3/uL Abs Immat Gran (auto) 0.00 (0.00-0.03) X10*3/uL Absolute Neuts (auto) 3.0 (2.0-8.3) X10*3/uL Absolute Nucleated RBC 0.000 (0.0-0.012) X10*3/uL Nucleated RBC % (auto) 0.0 (0.0-0.2) /100WBC Sodium 141 (135-145) mmol/L Potassium 4.2 (3.3-5.1) mmol/L Chloride 103 (96-108) mmol/L Carbon Dioxide 28 (22-29) mmol/L Anion Gap 14 (12-20) BUN 18 H (9-16) mg/dL Creatinine 1.22 (0.5-1.4) mg/dL Estim Creat Clear Calc 83.3 Estimated GFR > 60 POC Glucose 97 (60-115) mg/dL Random Glucose 87 (60-115) mg/dL Calcium 9.7 D (8.4-10.2) mg/dL Total Bilirubin 0.5 (0.0-1.0) mg/dL AST 20 (5-37) U/L ALT 34 (0-40) U/L Alkaline Phosphatase 59 (39-117) U/L Total Protein 7.5 (6.5-8.0) g/dL Albumin 4.3 (3.5-5.0) g/dL ECG Data Interpretation: Sinus heart rate 75 p.r. cares QT within normal limits is no acute ST segment elevation noted. Discharge Plan Discharge Clinical Impression: Vasovagal syncope Patient Disposition: Home, Self-Care Instructions: Syncope (ED) Prescriptions: No Action famotidine [Pepcid] 20 mg tablet 20 mg PO DAILY PRN (Reason: abdominal discomfort) Qty: 30 RF: 0 naproxen 500 mg tablet 500 mg PO BID PRN (Reason: pain) Qty: 20 RF: 0 prednisone 20 mg tablet 40 mg PO DAILY 7 Days Qty: 14 RF: 0 tramadol 50 mg tablet 50 mg PO Q8H PRN (Reason: pain) Qty: 20 RF: 0 Referrals: Jigar Ravi DO [Primary Care Provider] - 2 days [facility] [Provider Group] - 2 days Stand Alone Forms: Work/School Release
[2020-11-15 22:17] VITALS: BP 101/56; BP 116/72; BP 118/63; PULSE 60; PULSE 61; PULSE 63
[2020-11-15] MEDS: 0.9 % Sodium Chloride 1,000 ML 999 ML IV (22:27)
--- NOTE | 2020-11-15 22:28 | PC.NURSE ---
Orthos complete. IV established, IVF infusing.
[2020-11-16] VITALS: BP 111/63; PULSE 63; RESP 18; TEMP 36.1; O2SAT 100
[2020-11-16 00:37] LABS: Glucose, Whole Blood 97 mg/dL (60-115)
[2020-11-16 11:00] LABS: Glucose, Whole Blood 75 mg/dL (60-115)
== END 2020-11-16 03:34 | disposition home or self-care (01) ==
PROVIDERS: Emergency Provider Emergency Medicine Emergency Medical Services
DX: R55 Syncope and collapse (principal)
CPT/HCPCS: 36415; 80053; 82947; 85025; 93005; 96360; 99284

== ENCOUNTER 2021-01-13 09:18 | Emergency (ER) | payer OTHER, SELFPAY ==
[2021-01-13 09:21] VITALS: BP 127/74; PULSE 79; RESP 18; TEMP 35.6; O2SAT 99; BMI 29.1
--- NOTE | 2021-01-13 09:25 | ED_ITS ---
HPI - Ear Problem General Chief complaint: Ear Problems Stated complaint: EAR PAIN Time Seen by Provider: 01/13/21 09:25 Source: patient Mode of arrival: ambulatory Limitations: no limitations History of Present Illness HPI Narrative: 35 y/o male presenting with right sided ear pain and sore throat since yesterday. He had a hard time sleeping due to the pain and woke up this morning with worsening pain. It hurts when he pulled on his ear and when he lays down. He has pain in his throat when he swallows. He has no fever or chills. No dental pain or neck pain. No cough, SOB or chest pain. No hearing los or drain age. He tried cleaning out his ears with Q-tips but it made the pain worse. He also tried OTC ear drops with no improvement. MD Complaint: ear pain Location: right ear Duration: constant Severity: moderate Relieving factors: nothing Exacerbating factors: position of head and palpation Discharge from ear: no Associated symptoms ear: headache Treatment prior to arrival: none Related Data Previous Rx's Medication Instructions Recorded naproxen 500 mg PO BID PRN #20 tab NS 06/19/20 prednisone 40 mg PO DAILY 7 Days #14 tab NS 06/19/20 tramadol 50 mg PO Q8H PRN #20 tab NS 06/19/20 famotidine [Pepcid] 20 mg PO DAILY PRN #30 tab 08/30/20 amoxicillin-pot clavulanate 1 tab PO BID #14 tab 01/13/21 [Augmentin] Allergies Allergy/AdvReac Type Severity Reaction Status Date / Time No Known Allergies Allergy Verified 01/13/21 09:20 [No Known Allergies*] Review of Systems Review of Systems: Constitutional: No Fever, No Chills ENT/Mouth: + sore throat, No Rhinorrhea, No Swallowing Difficulty , +ear pain Eyes: No Eye Pain, No Swelling, No Redness Cardiovascular: No Chest Pain, No SOB, No Orthopnea, No Edema Respiratory: No Cough, No Sputum Gastrointestinal: No Nausea, No Vomiting Musculoskeletal: No joint pain, No Myalgias Skin: No Skin Lesions, No rash Neuro: No Dizziness, + Headache Heme/Lymph: No Lymphadenopathy PMFSH Past Medical History Attestation statement: The following information was validated with the patient. Medical History No known health problems Surgical History No history of previous surgery Social History Social History Alcohol intake: never Advance Directives: No Advance Directives Information Provided: No Physical Exam 2 Vital Signs: Vital Signs: Last Vital Signs Temp 96.1 F L 01/13/21 09:21 Pulse 79 01/13/21 09:21 Resp 18 01/13/21 09:21 BP 127/74 01/13/21 09:21 Pulse Ox 99 01/13/21 09:21 Body Mass Index 29.1 Const: General: cooperative, healthy appearing, comfortable, no acute distress and well developed HENMT: Head: Yes normal to inspection Ears: hearing grossly normal bilaterally, external ears normal, mastoids normal and unable to visualize TM bilaterally General nose exam: Normal external nose present Face and sinus: Yes normal facial exam Mouth: Normal oral and palatal mucosa present, lip normal, tongue normal, moist mucous membranes and no trismus Teeth and gingiva: dentition normal Throat: Yes uvula midline, Yes abnormal tonsil (swelling with exudate) and No peritonsillar mass Eyes: General: appearance normal, both eyes and all related structures Neck: Neck: Yes normal visual inspection, Yes full ROM, Yes no lymphadenopathy, Yes no meningeal signs, Yes trachea midline, Yes supple and No anterior neck swelling Chest: Chest palpation & inspection: normal inspection of the chest Resp: Effort & Inspection: normal respiratory effort and able to speak in complete sentences Skin: General skin exam: no rashes or lesions noted Neuro: General: no meningeal signs Cranial nerves: Yes CN's II-XII intact bilaterally Extrem: General: Yes normal to inspection Psych: Appearance: grossly normal and well kempt Course Course Course Narrative: 35 y/o male presenting with right ear pain and sore throat x1 day. Cerumen removed with irrigation. Right TM with erythema and bulging, no perforation. Will treat for AOM and possible Strep pharyngtitis with PO Agumentin. Patient will follow up with his PCP as needed. Stable for discharge. Procedures Ear Wax Removal Both Ears: Cerumenolytic Used: other (warm water) Results: Re-examined: cerumen removed completely TM Examination: TM(s) erythematous Ear Canal Exam: atraumatic Patient Tolerated Procedure: well Complications: no problems Technique: ear canal irrigated MDM - Ear Differential Diagnosis Differential diagnosis: Likely otitis externa, otitis media, foreign body in ear, ruptured TM and cerumen impaction Critical Care Time Critical Care Time Critical Care Time: No Discharge Plan Discharge Clinical Impression: Bilateral impacted cerumen Otitis media Qualifiers: Otitis media type: serous Chronicity: acute Laterality: right Recurrence: non- recurrent Qualified Code(s): H65.01 - Acute serous otitis media, right ear Patient Disposition: Home, Self-Care Instructions: Carbamide Peroxide (Into the ear), Ear Infection (ED) Prescriptions: New amoxicillin-pot clavulanate [Augmentin] 500-125 mg tablet 1 tab PO BID Qty: 14 RF: 0 No Action famotidine [Pepcid] 20 mg tablet 20 mg PO DAILY PRN (Reason: abdominal discomfort) Qty: 30 RF: 0 naproxen 500 mg tablet 500 mg PO BID PRN (Reason: pain) Qty: 20 RF: 0 prednisone 20 mg tablet 40 mg PO DAILY 7 Days Qty: 14 RF: 0 tramadol 50 mg tablet 50 mg PO Q8H PRN (Reason: pain) Qty: 20 RF: 0 Interventions: ED Discharge Assessment Last Done: 01/13/21 09:51 Discharge Date/Time: 01/13/21 09:51
== END 2021-01-13 09:51 | disposition home or self-care (01) ==
PROVIDERS: Emergency Provider Emergency Medicine Emergency Medical Services; PCP Internal Medicine
DX: H65.01 Acute serous otitis media, right ear (principal); H61.23 Impacted cerumen, bilateral; Z79.899 Other long term (current) drug therapy
CPT/HCPCS: 69209; 99283

== ENCOUNTER 2021-01-20 14:11 | Emergency (ER) | payer OTHER, SELFPAY ==
--- NOTE | ~2021-01-20 | CT_ITS ---
EXAMINATION: CT SOFT TISSUE NECK WITH CONTRAST CLINICAL INFORMATION: Difficulty swallowing. Lymph node swelling. COMPARISON: None available. TECHNIQUE: Multidetector helical imaging was performed in the axial plane following the administration of 60 mL of Omnipaque 350 intravenous contrast. Multiple axial reformats and coronal/sagittal reconstructions were created the technologist workstation for review. This CT examination was performed using dose optimization techniques as appropriate, variously including the following: *Automated exposure control. *Adjustment of mA and/or kV according to patient size (this includes techniques or standardized protocols for targeted exams where dose is matched to indication/reason for exam; i.e. extremities or head). *Use of iterative reconstruction technique. DLP: 641 mGy-cm FINDINGS: No significant cutaneous thickening or subcutaneous inflammation. No discrete fluid collection within the deep tissues of the neck. The premaxillary, retromaxillary, pterygopalatine fossa, orbital apical, parapharyngeal, and prelaryngeal adipose tissue is maintained. Normal appearance of the parotid, submandibular, and thyroid glands. Scattered subcentimeter lymph nodes bilaterally, none of which are pathologically enlarged or abnormally enhancing. No demonstrated focal lesions or abnormal enhancement of the intrinsic tissues of the tongue or floor of mouth. Mild prominence of the palatine tonsils. Moderate prominence of the adenoids. Otherwise, normal mucosal contours of the pharynx and larynx without abnormal enhancement. Normal appearance of the hyoid bone, thyroid cartilage, or cartilaginous trachea. The airways remains widely patent. No radiopaque foreign bodies. The atlantooccipital and atlantoaxial articulations remain well aligned. There is anatomic alignment of the vertebral bodies and posterior elements. No evidence of acute fracture or subluxation of the cervical spine. The vertebral body heights are maintained. The intervertebral disc spaces are maintained. No evidence of epidural collection. There is no prevertebral soft tissue swelling. Normal opacification of the cervical arterial and venous structures. The visualized portion of the skull base is without significant abnormalities. Mild mucosal thickening of the paranasal sinuses. The mastoid air cells and middle ear cavities are clear. No demonstrated significant periapical odontogenic disease. CT Upper Chest: The visualized lung apices and upper mediastinum are within normal limits. CT/CT soft tissue neck w con IMPRESSION: Mild to moderate prominence of the palatine tonsils and adenoids. Otherwise, no demonstrated focal lesion, collection, lymphadenopathy, or abnormal enhancement within the soft tissues of the neck.
[2021-01-20 15:03] VITALS: BP 147/79; PULSE 88; RESP 16; TEMP 36.6; O2SAT 97; BMI 30.7
[2021-01-20 18:09] VITALS: BP 130/84; PULSE 67; RESP 16; O2SAT 98
--- NOTE | 2021-01-20 18:09 | ED.HA ---
HPI - Headache General Chief Complaint: Headache Stated Complaint: head pain Time Seen by Provider: 01/20/21 18:07 Source: patient, RN notes reviewed and old records reviewed Mode of arrival: ambulatory Limitations: no limitations History of Present Illness HPI Narrative: 35-year-old male presenting here today with headache, right earache, sore throat, pain was swallowing. Patient was seen in the ER on January 13 and was diagnosed with ear infection. Was sent home with Augmentin. On January 18 patient started with tingling to the right side of his face inability to close his right eye. 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 At that time his face was swollen rigidity of his jaw. He was drooling out of his mouth on the left side when he was drinking. He was sent home with Valtrex, his antibiotic was switched to azithromycin and he was given prednisone taper. Today patient reports that his right side of the neck hurts. He is able to swallow food however he has got a lot of pain when swallowing. Denies any fever or chills Related Data Previous Rx's Medication Instructions Recorded amoxicillin-pot clavulanate 1 tab PO BID #14 tab 01/13/21 [Augmentin] azithromycin 500 mg tablet 500 mg PO DAILY 5 Days #5 tab 01/18/21 prednisone 20 mg tablet 20 mg PO .COMPLEX #18 tab 01/18/21 valacyclovir 1 gram tablet 1,000 mg PO TID 10 Days #30 tab 01/18/21 artificial tears(hypromellose) 2 drp OPHTHALMIC (EYE) Q2-4H PRN 01/20/21 #15 ml Allergies Allergy/AdvReac Type Severity Reaction Status Date / Time No Known Allergies Allergy Verified 01/20/21 15:09 [No Known Allergies*] Review of Systems Review of Systems: Constitutional : No Weight loss, No Fever, No Chills, No Night Sweats, No Fatigue, No Malaise ENT/Mouth : No Hearing loss, Ear Pain, No Nasal Congestion, No Sinus Pain, No Hoarseness, sore throat, No Rhinorrhea, Swallowing Difficulty Eyes: No Eye Pain, No Swelling, No Redness, No Foreign Body, No Discharge, No Vision Changes Cardiovascular : No Chest Pain, No SOB, No Dyspnea on Exertion, No Orthopnea, No Edema, No Palpitations Respiratory : No Cough, No Sputum, No Wheezing, No Smoke Exposure, No Dyspnea Gastrointestinal : No Nausea, No Vomiting, No Diarrhea, No Constipation, No abdominal Pain, No Hematochezia, No Melena Genitourinary : no irregular bleeding, No Dysuria, No Urinary Frequency, No Hematuria, No Urinary Incontinence, No Urgency, No Flank Pain, No Urinary Flow Changes, No Hesitancy Musculoskeletal : No joint pain, No Myalgias, No Joint Swelling Skin : No Skin Lesions, No rash Neuro : No Weakness, No Numbness, No Paresthesias, No Loss of Consciousness, No Dizziness, Headache Psych : No Anxiety/Panic, No Depression, No SI/HI/AH/VH, No Social Issues, Heme/Lymph: No Bruising, No Bleeding, Lymphadenopathy Endocrine : No Polyuria, No Polydipsia, No Temperature Intolerance Yes all other systems are reviewed and are negative PMFSH Past Medical History Medical History No known health problems Surgical History No history of previous surgery Social History Social History Alcohol intake: never Patient Tobacco Use Status: Never used Tobacco Use of substances other than those prescribed or required for medical reasons: No Advance Directives: No Advance Directives Information Provided: Yes Physical Exam Vital Signs: Vital Signs: Last Vital Signs Temp 98.4 F 01/20/21 22:16 Pulse 62 01/20/21 22:16 Resp 18 01/20/21 22:16 BP 123/71 01/20/21 22:16 Pulse Ox 98 01/20/21 22:16 Body Mass Index 30.7 Const: General: healthy appearing, no acute distress and well developed Nutritional Appearance: well nourished Orientation/consciousness: patient oriented x3 Neck: Neck: Yes normal visual inspection, Yes full ROM and Yes trachea midline Thyroid: Thyroid normal Resp: Auscultation: clear to auscultation bilaterally Cardio: Rate: regular rate Rhythm: regular rhythm GI: Inspection: Yes normal to inspection and No distended Palpation (GI): No hepatosplenomegaly present Auscultation: normal bowel sounds Skin: General skin exam: elasticity normal, turgor normal and dry skin Neuro: General: patient oriented x3 Course Course Course Narrative: 35 years old male here today for right-sided facial pain. Patient was diagnosed with Bennett's palsy, history of acute sinusitis and the right ear infection. Patient is on Valtrex, azithromycin and prednisone taper. I will give him Toradol for pain. Draw basic labs like CBC and BMP. Patient does report that he has left-sided neck pain with pain when he swallows food. I will get CT of the neck. Patient is agreeable to plan of care Reevaluation(s) Reevaluation #1: CT scan negative for any abnormalities. Patient is able to swallow without any difficulties. Reports that he is feeling better after the Toradol. We will send him home so he can follow up with his PCP and go to physical therapy. Patient was instructed to put artificial tears in his right eye. MDM - Headache Lab Data Result diagrams: 01/20/21 18:53 01/20/21 18:54 Labs: Lab Results 01/20/21 01/20/21 01/20/21 Range/Units 18:53 18:54 18:54 WBC 11.2 H (4.8-10.8) X10*3/uL RBC 5.60 (4.60-5.80) X10*6/uL Hgb 15.7 (14.0-18.0) g/dl Hct 48.2 (42-52) % MCV 86.1 (80-98) fL MCH 28.0 (27.0-33.0) pg MCHC 32.6 (31.0-36.0) g/dl RDW 13.2 (11.0-16.0) % Plt Count 332 (160-400) X10*3/uL MPV 11.5 (9.4-12.4) fL Immature Gran % (Auto) 0.4 (0.0-0.4) % Neut % (Auto) 81.1 H (45-73) % Lymph % (Auto) 13.5 L (20-40) % [place] % (Auto) 4.9 (2-11) % Eos % (Auto) 0.0 (0-4) % Baso % (Auto) 0.1 (0-2) % Lymph # (Auto) 1.5 (1.2-4.9) X10*3/uL [place] # (Auto) 0.6 (0.1-1.2) X10*3/uL Eos # (Auto) 0.0 (0.0-0.4) X10*3/uL Baso # (Auto) 0.0 (0.0-0.2) X10*3/uL Abs Immat Gran (auto) 0.04 H (0.00-0.03) X10*3/uL Absolute Neuts (auto) 9.1 H (2.0-8.3) X10*3/uL Absolute Nucleated RBC 0.000 (0.0-0.012) X10*3/uL Nucleated RBC % (auto) 0.0 (0.0-0.2) /100WBC Sodium 141 (135-145) mmol/L Potassium 5.2 H D (3.3-5.1) mmol/L Chloride 104 (96-108) mmol/L Carbon Dioxide 26 (22-29) mmol/L Anion Gap 16 (12-20) BUN 21 H (9-16) mg/dL Creatinine 1.19 (0.5-1.4) mg/dL Estim Creat Clear Calc 84.1 Estimated GFR > 60 Random Glucose 114 (60-115) mg/dL Calcium 10.1 (8.4-10.2) mg/dL Coronavirus (PCR) POSITIVE A (Negative) Influenza Type A (PCR) NEGATIVE (Negative) Influenza Type B (PCR) NEGATIVE (Negative) RSV RNA Qual (PCR) NEGATIVE (Negative) Imaging Data Soft tissue CT of the neck: Radiologist's impression: FINDINGS: No significant cutaneous thickening or subcutaneous inflammation. No discrete fluid collection within the deep tissues of the neck. The premaxillary, retromaxillary, pterygopalatine fossa, orbital apical, parapharyngeal, and prelaryngeal adipose tissue is maintained. Normal appearance of the parotid, submandibular, and thyroid glands. Scattered subcentimeter lymph nodes bilaterally, none of which are pathologically enlarged or abnormally enhancing. No demonstrated focal lesions or abnormal enhancement of the intrinsic tissues of the tongue or floor of mouth. Mild prominence of the palatine tonsils. Moderate prominence of the adenoids. Otherwise, normal mucosal contours of the pharynx and larynx without abnormal enhancement. Normal appearance of the hyoid bone, thyroid cartilage, or cartilaginous trachea. The airways remains widely patent. No radiopaque foreign bodies. The atlantooccipital and atlantoaxial articulations remain well aligned. There is anatomic alignment of the vertebral bodies and posterior elements. No evidence of acute fracture or subluxation of the cervical spine. The vertebral body heights are maintained. The intervertebral disc spaces are maintained. No evidence of epidural collection. There is no prevertebral soft tissue swelling. Normal opacification of the cervical arterial and venous structures. The visualized portion of the skull base is without significant abnormalities. Mild mucosal thickening of the paranasal sinuses. The mastoid air cells and middle ear cavities are clear. No demonstrated significant periapical odontogenic disease. CT Upper Chest: The visualized lung apices and upper mediastinum are within normal limits. CT/CT soft tissue neck w con IMPRESSION: Mild to moderate prominence of the palatine tonsils and adenoids. Otherwise, no demonstrated focal lesion, collection, lymphadenopathy, or abnormal enhancement within the soft tissues of the neck. Discharge Plan Discharge Clinical Impression: Bennett's palsy, COVID-19 Acute sinusitis Qualifiers: Sinusitis location: unspecified location Recurrence: not specified as recurrent Qualified Code(s): J01.90 - Acute sinusitis, unspecified Patient Disposition: Home, Self-Care Instructions: Bennett Palsy (ED), COVID-19 (Coronavirus Disease 2019) (ED) Additional Instructions: You were seen here today for Bennett's palsy, headache, neck pain, painful swallowing. We also tested 2 for COVID-19 any were positive. Please follow-up with your PCP in 2-3 days. I am sending you home with eye drops. Continue your prescribed medications for Bennett's palsy. Make sure you finish all your prednisone an your Valtrex. You will need physical therapy. You may return to emergency department if your symptoms will get worse or if you experience any additional concerning symptoms. Prescriptions: New artificial tears(hypromellose) 0.5 % drops 2 drp ophthalmic (eye) Q2-4H PRN (Reason: dry eye(s)) Qty: 15 RF: 0 No Action amoxicillin-pot clavulanate [Augmentin] 500-125 mg tablet 1 tab PO BID Qty: 14 RF: 0 prednisone 20 mg tablet 20 mg PO .COMPLEX Qty: 18 RF: 0 azithromycin 500 mg tablet 500 mg PO DAILY 5 Days Qty: 5 RF: 0 valacyclovir [Valtrex] 1 gram tablet 1,000 mg PO TID 10 Days Qty: 30 RF: 0
--- NOTE | 2021-01-20 18:10 | PC.NURSE ---
pt alert and oriented, skin appropriate for ethnicity, respirations even and unlabored. pt states seeing dr eh butler diagnosed with bells palsy put on prednisone/valtrex/abx. still having lots right sided head pain that wraps to the back of his head, having hard time closing the right eye and eye tearing a lot. pain at 7/10,
[2021-01-20] MEDS: 0.9 % Sodium Chloride 1,000 ML 999 ML IV (18:55)
[2021-01-20 19:00] LABS: MANUAL DIFF FLAG NO
[2021-01-20 19:04] LABS: Basophils Percent Auto 0.1 % (0-2); Hematocrit 48.2 % (42-52); Hemoglobin 15.7 g/dl (14.0-18.0); Imm Gran Abs Auto 0.04 X10*3/uL (0.00-0.03); Imm Gran Pct Auto 0.4 % (0.0-0.4); Lymphocytes Absolute Auto 1.5 X10*3/uL (1.2-4.9); Lymphocytes Percent Auto 13.5 % (20-40); Mean Corpuscular HGB Conc 32.6 g/dl (31.0-36.0); Mean Corpuscular Volume 86.1 fL (80-98); Mean Platelet Volume 11.5 fL (9.4-12.4); Monocytes Absolute Auto 0.6 X10*3/uL (0.1-1.2); Monocytes Percent Auto 4.9 % (2-11); Neutrophils Absolute Auto 9.1 X10*3/uL (2.0-8.3); Neutrophils Percent Auto 81.1 % (45-73); Platelet Count 332 X10*3/uL (160-400); Red Cell Distribution Width 13.2 % (11.0-16.0); White Blood Count 11.2 X10*3/uL (4.8-10.8)
[2021-01-20 19:29] LABS: Anion Gap 16 (12-20); Blood Urea Nitrogen 21 mg/dL (9-16); Calcium 10.1 mg/dL (8.4-10.2); Carbon Dioxide 26 mmol/L (22-29); Chloride 104 mmol/L (96-108); Creatinine Clr Calc Pharmacy 84.1; Estimated Glomerular Filt Rate > 60; Glucose Random 114 mg/dL (60-115); Potassium 5.2 mmol/L (3.3-5.1); Sodium 141 mmol/L (135-145)
[2021-01-20 19:41] LABS: Influenza A PCR NEGATIVE (Negative); Influenza B PCR NEGATIVE (Negative); Resp Syncy Virus RNA Qual PCR NEGATIVE (Negative); SARS COV2 PCR INHOUSE POSITIVE (Negative)
[2021-01-20] MEDS: Ketorolac Tromethamine 15 MG/ML VIAL IVPUSH (19:42)
[2021-01-20 20:12] VITALS: BP 133/81; PULSE 76; RESP 18; TEMP 36.8; O2SAT 97
[2021-01-20] MEDS: iohexoL 350 MG/ML 100 ML INFUS..BTL IV (21:06)
[2021-01-20 22:16] VITALS: BP 123/71; PULSE 62; RESP 18; TEMP 36.9; O2SAT 98
== END 2021-01-20 23:05 | disposition home or self-care (01) ==
PROVIDERS: Nurse Practitioner Family; Emergency Provider Student in an Organized Health Care Education/Training Program; PCP Internal Medicine
DX: U07.1 COVID-19 (principal); G51.0 Bell's palsy; J01.90 Acute sinusitis, unspecified; R51.9 Headache, unspecified; M54.2 Cervicalgia; Z20.822 Contact with and (suspected) exposure to COVID-19; Z79.899 Other long term (current) drug therapy
CPT/HCPCS: 0241U; 36415; 70491; 80048; 85025; 96365; 96375; 99285; J1885; Q9967

== ENCOUNTER 2021-01-31 18:36 | Emergency (ER) | payer OTHER, SELFPAY ==
--- NOTE | ~2021-01-31 | CT_ITS ---
EXAMINATION: CTA CHEST PE STUDY CLINICAL INFORMATION: Chest pain, shortness of breath on exertion, COVID positive COMPARISON: No pertinent prior studies are available for comparison. TECHNIQUE: Prior to contrast administration, noncontrast localization images were obtained. After the administration of 70 mL of Omnipaque 350 IV contrast, contiguous thin slice helical images were obtained through the thorax. Reformatted MIP images in the coronal and sagittal planes were obtained at the acquisition workstation. This CT examination was performed using dose optimization techniques as appropriate, variously including the following: *Automated exposure control *Adjustment of mA and/or kV according to patient size (this includes techniques or standardized protocols for targeted exams where dose is matched to indication/reason for exam; i.e. extremities or head) *Use of iterative reconstruction technique DLP: 278 mGy-cm. FINDINGS: The bolus timing on this study was acceptable for visualization of the pulmonary arterial tree. There are no intraluminal pulmonary arterial filling defects present to suggest pulmonary embolism. The lungs are clear. No abnormal pulmonary nodules or masses are appreciated. No significant hilar or mediastinal adenopathy. There is no evidence of pleural effusion or pneumothorax. The heart is normal in size. No evidence of ventricular septal bowing or right heart strain. Great vessels are normal. Otherwise the mediastinum is unremarkable. There is no pericardial effusion or pericardial thickening. Limited evaluation of the upper abdominal viscera is unremarkable. CT/CT angio chest PE protocol IMPRESSION: No evidence for pulmonary emboli. No focal airspace disease. VTE: Negative
[2021-01-31 18:46] VITALS: BP 161/83; PULSE 95; RESP 20; TEMP 36.6; O2SAT 97; BMI 29.7
--- NOTE | 2021-01-31 19:42 | ED_ITS ---
HPI - General Adult General Chief complaint: General Medical Stated complaint: cough Time Seen by Provider: 01/31/21 21:09 Source: patient Mode of arrival: ambulatory Limitations: no limitations History of Present Illness HPI narrative: 35-year-old male known COVID positive approximately 2 weeks ago presents with worsening shortness of breath, shortness breath on exertion, fatigue, abdominal pain and chest pain. Onset (ago): day(s) Radiation: non-radiation Severity scale (1-10): 5 Quality: aching and constant Pain Consistency: constant Relieving factors: none Exacerbating factors: movement Associated symptoms: chest pain, cough, fever/chills, headaches, loss of appetite, malaise, nausea/vomiting and shortness of breath Related Data Previous Rx's Medication Instructions Recorded amoxicillin-pot clavulanate 1 tab PO BID #14 tab 01/13/21 [Augmentin] azithromycin 500 mg tablet 500 mg PO DAILY 5 Days #5 tab 01/18/21 valacyclovir 1 gram tablet 1,000 mg PO TID 10 Days #30 tab 01/18/21 artificial tears(hypromellose) 2 drp OPHTHALMIC (EYE) Q2-4H PRN 01/20/21 #15 ml prednisone 20 mg tablet 20 mg PO .COMPLEX #18 tab 01/29/21 Allergies Allergy/AdvReac Type Severity Reaction Status Date / Time No Known Allergies Allergy Verified 01/31/21 18:50 [No Known Allergies*] Review of Systems Review of Systems: Constitutional: positive Fever, positive Chills, positive fatigue, positive Malaise ENT/Mouth: No sore throat, no runny nose Eyes: No Discharge Cardiovascular: Positive Chest Pain, positive SOB, positive dyspnea on exertion Respiratory: Positive Cough, No Sputum, No Wheezing, No Smoke Exposure, p ositive Dyspnea Gastrointestinal: No Nausea, No Vomiting, No Diarrhea Genitourinary: no irregular bleeding, No Dysuria, No Urinary Frequency, No Hematuria, No Urinary Incontinence, No Urgency, No Flank Pain, Musculoskeletal: positive Myalgia Skin: No rash Neuro: No Headache Yes all other systems are reviewed and are negative PMFSH Past Medical History Attestation statement: The following information was validated with the patient. Source: old records reviewed Medical History No known health problems Surgical History No history of previous surgery Social History Social History Alcohol intake: never Patient Tobacco Use Status: Never used Tobacco Advance Directives: No Advance Directives Information Provided: Yes Physical Exam Vital Signs: Vital Signs: Last Vital Signs Temp 98.4 F 01/31/21 22:09 Pulse 76 01/31/21 23:39 Resp 12 01/31/21 23:39 BP 125/78 01/31/21 23:39 Pulse Ox 99 01/31/21 23:39 Body Mass Index 29.7 Appearance: Alert. Oriented X3. No acute distress. Eyes: Pupils equal, round and reactive to light. ENT: Pharynx normal. Neck: Normal inspection. Neck supple. CVS: Tachycardic heart rate and rhythm. Pulses normal. Respiratory: No respiratory distress. Breath sounds normal. Abdomen: Soft and nontender. Skin: Skin warm and dry. Normal skin color. Normal skin turgor. Extremities: No lower extremity edema. Neuro: No motor deficit. No sensory deficit. Course Course Course Narrative: 35-year-old male known COVID positive presents with exacerbated symptoms. Has been on prednisone, azithromycin, inhalers, has been increasing fluids however states that he is short of breath on exertion, has chest pain, tachycardic, and has some mild abdominal distress. At this time will order CT scan to rule out PE. He does have an elevated white count at 15.2 which could be viral as well as elevated because he is on prednisone. He does not appear toxic, is speaking complete sentences, has an even unlabored respiration, and O2 saturation at 99% on room air. CT PE negative. Plan of care is to discharge home, continue social isolation per State Federal guidelines for COVID-19. Patient verbalized understanding of and agrees plan of care discharge home. Medical Decision Making Differential Diagnosis Differential Diagnosis: Viral illness, PE, pneumonia Medical Records Medical records reviewed: Yes I reviewed the patient's medical records. Lab Data Lab results reviewed: Yes I reviewed the patient's lab results. Result diagrams: 01/31/21 20:29 01/31/21 20:29 Labs: Lab Results 01/31/21 01/31/21 01/31/21 Range/Units 20:29 20:29 20:29 WBC 15.2 H (4.8-10.8) X10*3/uL RBC 5.26 (4.60-5.80) X10*6/uL Hgb 14.9 (14.0-18.0) g/dl Hct 45.2 (42-52) % MCV 85.9 (80-98) fL MCH 28.3 (27.0-33.0) pg MCHC 33.0 (31.0-36.0) g/dl RDW 13.9 (11.0-16.0) % Plt Count 324 (160-400) X10*3/uL MPV 11.1 (9.4-12.4) fL Immature Gran % (Auto) 0.3 (0.0-0.4) % Neut % (Auto) 80.7 H (45-73) % Lymph % (Auto) 12.1 L (20-40) % Imperial % (Auto) 6.8 (2-11) % Eos % (Auto) 0.0 (0-4) % Baso % (Auto) 0.1 (0-2) % Lymph # (Auto) 1.8 (1.2-4.9) X10*3/uL Imperial # (Auto) 1.0 (0.1-1.2) X10*3/uL Eos # (Auto) 0.0 (0.0-0.4) X10*3/uL Baso # (Auto) 0.0 (0.0-0.2) X10*3/uL Abs Immat Gran (auto) 0.05 H (0.00-0.03) X10*3/uL Absolute Neuts (auto) 12.3 H (2.0-8.3) X10*3/uL Absolute Nucleated RBC 0.000 (0.0-0.012) X10*3/uL Nucleated RBC % (auto) 0.0 (0.0-0.2) /100WBC Sodium 138 (135-145) mmol/L Potassium 4.9 (3.3-5.1) mmol/L Chloride 102 (96-108) mmol/L Carbon Dioxide 28 (22-29) mmol/L Anion Gap 13 (12-20) BUN 23 H (9-16) mg/dL Creatinine 1.33 (0.5-1.4) mg/dL Estim Creat Clear Calc 74.0 Estimated GFR > 60 Random Glucose 151 H (60-115) mg/dL Calcium 9.4 D (8.4-10.2) mg/dL Total Bilirubin 0.7 (0.0-1.0) mg/dL Direct Bilirubin 0.3 (0.0-0.5) mg/dL AST 12 (5-37) U/L ALT 17 (0-40) U/L Alkaline Phosphatase 60 (39-117) U/L Troponin I High Sens < 3.5 (<3.5-35.0) ng/L Total Protein 6.8 (6.5-8.0) g/dL Albumin 3.9 (3.5-5.0) g/dL Lipase 57 (8-78) U/L Imaging Data CT PE study: Attestation: I personally reviewed and interpreted this imaging study as follows: Radiologist's impression: EXAMINATION: CTA CHEST PE STUDY CLINICAL INFORMATION: Chest pain, shortness of breath on exertion, COVID positive COMPARISON: No pertinent prior studies are available for comparison. TECHNIQUE: Prior to contrast administration, noncontrast localization images were obtained. After the administration of 70 mL of Omnipaque 350 IV contrast, contiguous thin slice helical images were obtained through the thorax. Reformatted MIP images in the coronal and sagittal planes were obtained at the acquisition workstation. This CT examination was performed using dose optimization techniques as appropriate, variously including the following: *Automated exposure control *Adjustment of mA and/or kV according to patient size (this includes techniques or standardized protocols for targeted exams where dose is matched to indication/reason for exam; i.e. extremities or head) *Use of iterative reconstruction technique DLP: 278 mGy-cm. FINDINGS: The bolus timing on this study was acceptable for visualization of the pulmonary arterial tree. There are no intraluminal pulmonary arterial filling defects present to suggest pulmonary embolism. The lungs are clear. No abnormal pulmonary nodules or masses are appreciated. No significant hilar or mediastinal adenopathy. There is no evidence of pleural effusion or pneumothorax. The heart is normal in size. No evidence of ventricular septal bowing or right heart strain. Great vessels are normal. Otherwise the mediastinum is unremarkable. There is no pericardial effusion or pericardial thickening. Limited evaluation of the upper abdominal viscera is unremarkable. CT/CT angio chest PE protocol IMPRESSION: No evidence for pulmonary emboli. No focal airspace disease. VTE: Negative Discharge Plan Discharge Clinical Impression: COVID-19 Patient Disposition: Home, Self-Care Instructions: COVID-19 (Coronavirus Disease 2019) (ED) Additional Instructions: You were evaluated for symptoms consistent with COVID-19. The CT scan PE study of your chest is negative for blood clots. Please continue to take the medications that were prescribed to you and continue to maintain social isol ation as you are positive for COVID-19. Thank you for choosing this emergency department for evaluation. Please follow-up with primary care physician as needed. Return to the emergency department for any new, concerning, or worsening symptoms. Prescriptions: No Action amoxicillin-pot clavulanate [Augmentin] 500-125 mg tablet 1 tab PO BID Qty: 14 RF: 0 artificial tears(hypromellose) 0.5 % drops 2 drp ophthalmic (eye) Q2-4H PRN (Reason: dry eye(s)) Qty: 15 RF: 0 azithromycin 500 mg tablet 500 mg PO DAILY 5 Days Qty: 5 RF: 0 valacyclovir [Valtrex] 1 gram tablet 1,000 mg PO TID 10 Days Qty: 30 RF: 0 prednisone 20 mg tablet 20 mg PO .COMPLEX Qty: 18 RF: 0 Interventions: ED Discharge Assessment Last Done: 02/01/21 00:33 Discharge Date/Time: 02/01/21 00:38
--- NOTE | 2021-01-31 20:02 | ECG_ITS ---
Test Reason : COUGH Blood Pressure : / mmHG Vent. Rate : 091 BPM Atrial Rate : 091 BPM P-R Int : 132 ms QRS Dur : 080 ms QT Int : 346 ms P-R-T Axes : 060 016 053 degrees QTc Int : 425 ms Normal sinus rhythm Possible Left atrial enlargement Borderline ECG When compared with ECG of 15-NOV-2020 14:59, No significant change was found Referred By: Jayna Garcia Electronically Signed By:BELLA GUAJARDO
[2021-01-31 20:33] VITALS: BP 124/84; PULSE 90; RESP 18; TEMP 36.6; O2SAT 97
[2021-01-31 20:33] LABS: MANUAL DIFF FLAG NO
[2021-01-31 20:41] LABS: Basophils Percent Auto 0.1 % (0-2); Hematocrit 45.2 % (42-52); Hemoglobin 14.9 g/dl (14.0-18.0); Imm Gran Abs Auto 0.05 X10*3/uL (0.00-0.03); Imm Gran Pct Auto 0.3 % (0.0-0.4); Lymphocytes Absolute Auto 1.8 X10*3/uL (1.2-4.9); Lymphocytes Percent Auto 12.1 % (20-40); Mean Corpuscular Hemoglobin 28.3 pg (27.0-33.0); Mean Corpuscular Volume 85.9 fL (80-98); Mean Platelet Volume 11.1 fL (9.4-12.4); Monocytes Percent Auto 6.8 % (2-11); Neutrophils Absolute Auto 12.3 X10*3/uL (2.0-8.3); Neutrophils Percent Auto 80.7 % (45-73); Platelet Count 324 X10*3/uL (160-400); Red Blood Count 5.26 X10*6/uL (4.60-5.80); Red Cell Distribution Width 13.9 % (11.0-16.0); White Blood Count 15.2 X10*3/uL (4.8-10.8)
[2021-01-31 21:00] LABS: Alanine Aminotransferase 17 U/L (0-40); Albumin Level 3.9 g/dL (3.5-5.0); Alkaline Phosphatase 60 U/L (39-117); Anion Gap 13 (12-20); Aspartate Amino Transferase 12 U/L (5-37); Bilirubin Direct 0.3 mg/dL (0.0-0.5); Bilirubin Total 0.7 mg/dL (0.0-1.0); Blood Urea Nitrogen 23 mg/dL (9-16); Calcium 9.4 mg/dL (8.4-10.2); Carbon Dioxide 28 mmol/L (22-29); Chloride 102 mmol/L (96-108); Estimated Glomerular Filt Rate > 60; Glucose Random 151 mg/dL (60-115); Lipase 57 U/L (8-78); Potassium 4.9 mmol/L (3.3-5.1); Sodium 138 mmol/L (135-145); Total Protein 6.8 g/dL (6.5-8.0)
[2021-01-31 21:05] LABS: Troponin-I High Sensitivity < 3.5 ng/L (<3.5-35.0)
[2021-01-31] MEDS: iohexoL 350 MG/ML 100 ML INFUS..BTL IV (21:42)
[2021-01-31] MEDS: 0.9 % Sodium Chloride 1,000 ML 999 ML IVCONT (21:56)
[2021-01-31 22:09] VITALS: BP 129/78; PULSE 80; RESP 18; TEMP 36.9; O2SAT 96
[2021-01-31 23:39] VITALS: BP 125/78; PULSE 76; RESP 12; O2SAT 99
== END 2021-02-01 00:38 | disposition home or self-care (01) ==
PROVIDERS: Nurse Practitioner Family; Emergency Provider Student in an Organized Health Care Education/Training Program; PCP Internal Medicine
DX: U07.1 COVID-19 (principal)
CPT/HCPCS: 36415; 71275; 80048; 80076; 83690; 84484; 85025; 93005; 96360; 99284; Q9967

== ENCOUNTER 2021-03-09 08:00 | Outpatient (RCR) | payer OTHER, SELFPAY | END 2021-03-09 14:56 | disposition home or self-care (01) | LOC: HO.PT 08:00 | PROVIDERS: PCP Internal Medicine; Visit Provider Internal Medicine | DX: G51.0 Bell's palsy (principal) | CPT/HCPCS: 97110; 97112; 97140; 97161 ==

== ENCOUNTER → 2021-03-26 13:40 | Outpatient (BNVA) | payer SELFPAY | PROVIDERS: PCP Internal Medicine; Visit Provider Physician Assistant | DX: Z02.79 Encounter for issue of other medical certificate (principal) ==

== ENCOUNTER 2021-03-27 09:07 | Emergency (ER) | payer OTHER, SELFPAY ==
[2021-03-27 10:47] VITALS: BP 125/86; PULSE 92; RESP 18; TEMP 36.9; O2SAT 99; BMI 32.5
--- NOTE | 2021-03-27 12:09 | ED_ITS ---
HPI - General Adult General Chief complaint: General Medical Stated complaint: tremmers Time Seen by Provider: 03/27/21 12:08 Source: patient Mode of arrival: ambulatory Limitations: no limitations History of Present Illness HPI narrative: 35-year-old male presents with shaking hands and concern for Parkinson's disease after taking prednisone. 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 He was prescribed prednisone then. Patient again had an ear infection in the same ear last week, he was prescribed Bactrim and prednisone. He stopped his Bactrim as he was concerned it was making him have tremors. His last dose of prednisone was today. He has no ear pain now, no sore throat, runny nose, cough, or any upper respiratory symptoms. His Bennett's palsy has resolved. Patient has a plan to see Ear Nose Throat April 09 for follow-up for ear infection was [place] palsy. Related Data Previous Rx's Medication Instructions Recorded amoxicillin 500 mg-potassium 1 tab PO BID #14 tab 01/13/21 clavulanate 125 mg tablet (Augmentin) azithromycin 500 mg tablet 500 mg PO DAILY 5 Days #5 tab 01/18/21 valacyclovir 1 gram tablet 1,000 mg PO TID 10 Days #30 tab 01/18/21 (Valtrex) artificial tears(hypromellose) 0.5 2 drp OPHTHALMIC (EYE) Q2-4H PRN 01/20/21 % eye drops #15 ml prednisone 20 mg tablet 20 mg PO .COMPLEX #18 tab 03/19/21 sulfamethoxazole 800 1 tab PO BID 7 Days #14 tab 03/19/21 mg-trimethoprim 160 mg tablet hydroxyzine HCl 25 mg tablet 25 mg PO TID 3 Days #9 tab 03/27/21 Allergies Allergy/AdvReac Type Severity Reaction Status Date / Time No Known Allergies Allergy Verified 01/31/21 18:50 [No Known Allergies*] Review of Systems Review of Systems: Constitutional : No Weight loss, No Fever, No Chills, No Night Sweats,No Fatigue, No Malaise ENT/Mouth : No Hearing loss, No Ear Pain, No Nasal Congestion, NoSinus Pain, No Hoarseness, No sore throat, No Rhinorrhea, NoSwallowing Difficulty Eyes: No Eye Pain, No Swelling, No Redness, No Foreign Body, NoDischarge, No Vision Changes Cardiovascular : No Chest Pain, No SOB, No Dyspnea on Exertion, NoOrthopnea, No Edema, No Palpitations Respiratory : No Cough, No Sputum, No Wheezing, No Smoke Exposure, No Dyspnea Gastrointestinal : No Nausea, No Vomiting, No Diarrhea, NoConstipation, No abdominal Pain, No Hematochezia, No Melena Genitourinary : no irregular bleeding, No Dysuria, No UrinaryFrequency, No Hematuria, No Urinary Incontinence, No Urgency, No FlankPain, No Urinary Flow Changes, No Hesitancy Musculoskeletal : No joint pain, No Myalgias, No Joint Swelling Skin : No Skin Lesions, No rash Neuro : No Weakness, No Numbness, No Paresthesias, No Loss ofConsciousness, No Dizziness, No Headache Psych : mild anxiety, tremors in hands, , No Depression, No SI/HI/AH/VH, No Social Issues, Endocrine : No Polyuria, No Polydipsia, No Temperature Intolerance Yes all other systems are reviewed and are negative Neurologic: Denies Abnormal speech present and Denies Sensory deficit (Neuro) [facility] Past Medical History Medical History No known health problems Surgical History No history of previous surgery Social History Social History Alcohol intake: never Patient Tobacco Use Status: Never used Tobacco Advance Directives: Yes Advance Directives Information Provided: Yes Advance Directives on File: No Physical Exam Vital Signs: Vital Signs: Last Vital Signs Temp 98.5 F 03/27/21 10:47 Pulse 92 03/27/21 10:47 Resp 18 03/27/21 10:47 BP 125/86 03/27/21 10:47 Pulse Ox 99 03/27/21 10:47 Body Mass Index 32.5 Appearance: Alert. Oriented X3. No acute distress. Head: Normal external exam. Normocephalic. Atraumatic. ?No Scott signs noted. No raccoon eyes noted Eyes: PERRLA. EOMI. Conjunctiva and sclera normal. Eyelids normal. ENT: EAC normal. TM's Normal. Pharynx normal. Uvula midline. Moist mucous membranes. ??No trismus noted. ?No drooling noted. ?No muffled voice noted. Neck: Normal inspection. Neck supple. FROM. No adenopathy. Thyroid Normal. No meningeal signs. No neck mass noted. CVS: Normal heart rate and rhythm. Heart sound normal. Pulses normal throughout. ?No murmurs/rales/gallops. Respiratory: No respiratory distress. Painless inspiration. Breath sounds normal. No wheezes/rales/rhonchi noted. Chest nontender. ??No accessory muscle usage noted or decreased air movement noted. Abdomen: Soft and nontender. Bowel sounds normal in all 4 quadrants. No distention noted. ?No organomegaly noted. ?No visible injury noted. Back: ?No CVA tenderness. ?Full range of motion noted. ?No rashes/lesion/induration/fluctuance or signs of infection noted. Skin: Skin warm and dry. ?Normal skin color. ?Normal skin turgor. No rashes/lesions/lacerations noted. Extremities: No lower extremity edema. ??Extremities exhibit normal range of motion. ?Extremities nontender. Neuro: Oriented X 3. ?No motor deficit. ?No sensory deficit. ?Reflexes normal. ?Normal steady gait. ?No focal neuro deficits noted. Vascular: + radial pulses/+ 2 distal pedal pulses/+2 dorsalis pedis b/l. ?Normal cap refill. ?No cyanosis noted to upper extremity nails and lower extremity toes nails. Neuro: Oriented X 3. No motor deficit. No sensory deficit. ?Reflexes normal. Moving all extremities. ?No focal motor deficits. ?Cranial nerves II-XI intact bilaterally. ??Facial strength normal. ??Normal cognition. Speech normal. Gait normal. Strength 5/5 throughout. No pronator drift. No tremor noted. No fasciculations noted. No rigidity noted. Muscle tone normal throughout. No asterixis noted. [id number] test normal. ?Heel to martinez test normal. Tandem gait normal. Does not sway with eyes open. Romberg test negative. Rapid alternating movement upper extremity normal. Rapid alternating movement lower extremity normal. ??Hand drop from overhead Misses face. ?NIHSS score 0. Const: General: cooperative, no acute distress, well developed, alert and awake Nutritional Appearance: well nourished Orientation/consciousness: patient oriented x3 Limitations: no limitations HENMT: Head: Yes normal to inspection, Yes normocephalic and Yes atraumatic Ears: hearing grossly normal bilaterally, external ears normal, TM normal on the left, EAC's normal and TM abnormal erythematous on the right; Negative for not bulging and not with effusion General nose exam: Normal external nose present Face and sinus: Yes normal facial exam and Yes sinuses nontender Mouth: Normal oral and palatal mucosa present Throat: Yes posterior oropharynx normal Eyes: Conjunctivae: conjunctivae normal Pupils: Equal, round and reactive pupils present EOM: EOMs intact bilaterally and No Nystagmus present Neck: Neck: Yes full ROM, Yes no lymphadenopathy and Yes supple Resp: Effort & Inspection: normal respiratory effort and able to speak in complete sentences Auscultation: clear to auscultation bilaterally, no crackles, no rales, no rhonchi and no wheezes Cardio: Rate: regular rate Rhythm: regular rhythm Heart sounds: S1 normal heart sound present and S2 normal heart sound present GI: Inspection: Yes normal to inspection Palpation (GI): Soft to palpation, nontender, no guarding and not rigid Percussion: Yes normal to percussion Auscultation: normal bowel sounds Skin: General skin exam: no rashes or lesions noted Neuro: General: patient oriented x3, tone normal and moves all extremities Cranial nerves: Yes CN's II-XII intact bilaterally, Yes Equal, round and reactive pupils present, Yes Bilaterally intact EOM present, Yes Nystagmus not present, Yes Normal facial strength present, Yes Midline tongue present, Yes Ability to bilaterally rotate head present, Yes Ability to bilaterally elevate shoulders present and No Nystagmus present Cognition (Neuro): normal cognition Speech: No Abnormal speech present Gait exam (Neuro): Normal gait present Motor exam (neuro): 5/5 motor strength present throughout Sensory Exam: No Sensory deficit (Neuro) Deep tendon reflexes (DTR's): Right brachioradialis reflex intensity grade: 1+, Left brachioradialis reflex intensity grade: 1+, Right patellar reflex intensity grade: 2+ and Left patellar reflex intensity grade: 2+ Coordination: [id number] test normal Romberg Test: Negative Pupils: Normal pupillary reactivity/response: bilateral Extrem: General: Yes normal to inspection and Yes full ROM Psych: Appearance: grossly normal Affect: normal affect Attitude: cooperative Thought process: Normal thought process present Course Course Course Narrative: 35-year-old male who has been on multiple prednisone doses recently, with last prednisone dose today, presents with tremors in his hands and anxiety that he has Parkinson's disease Patient is well-appearing, has a completely benign neurological exam, the right ear TM has dull erythema, but no bulging. Patient has no ear pain. Patient can raise his eyebrows symmetrically, has a symmetrical smile. His Bennett's Palsy has resolved. Counseled patient that this is most likely is prednisone contributing to his tremors and mild anxiety Provided reassurance that this is not Parkinson's disease. Patient has appointment with ENT in 2 weeks. Counseled pt to return to the emergency room if he had any new or concerning symptoms. Discharge Plan Discharge Clinical Impression: Medication reaction Qualifiers: Encounter type: initial encounter Qualified Code(s): T50.905A - Adverse effect of unspecified drugs, medicaments and biological substances, initial encounter Patient Disposition: Home, Self-Care Additional Instructions: Please fill the prescription that I prescribed and take it as prescribed. If it makes you too sleepy, you can take it only at night time during the days that you are working. Please call your primary care provider today for follow-up visit from today's visit at at the ER. Please keep your ear nose throat christina ointment for April 09. Your neurological exam was very reassuring. I do not think this is Parkinson's disease. Please return to emergency room for any new or concerning symptoms. Prescriptions: New hydroxyzine HCl 25 mg tablet 25 mg PO TID 3 Days Qty: 9 RF: 0 No Action amoxicillin-pot clavulanate [Augmentin] 500-125 mg tablet 1 tab PO BID Qty: 14 RF: 0 artificial tears(hypromellose) 0.5 % drops 2 drp ophthalmic (eye) Q2-4H PRN (Reason: dry eye(s)) Qty: 15 RF: 0 azithromycin 500 mg tablet 500 mg PO DAILY 5 Days Qty: 5 RF: 0 valacyclovir [Valtrex] 1 gram tablet 1,000 mg PO TID 10 Days Qty: 30 RF: 0 prednisone 20 mg tablet 20 mg PO .COMPLEX Qty: 18 RF: 0 sulfamethoxazole-trimethoprim 800-160 mg tablet 1 tab PO BID 7 Days Qty: 14 RF: 0 Stand Alone Forms: Work/School Release Interventions: ED Discharge Assessment Last Done: 03/27/21 12:33 Discharge Date/Time: 03/27/21 12:33
== END 2021-03-27 12:33 | disposition home or self-care (01) ==
PROVIDERS: Emergency Provider Emergency Medicine Emergency Medical Services
DX: G25.2 Other specified forms of tremor (principal); T38.0X5A Adverse effect of glucocorticoids and synthetic analogues, initial encounter; Y92.009 Unspecified place in unspecified non-institutional (private) residence as the place of occurrence of the external cause
CPT/HCPCS: 99283

== ENCOUNTER 2021-09-19 21:27 | Emergency (ER) | payer SELFPAY ==
[2021-09-19 21:39] VITALS: BP 124/79; PULSE 73; RESP 18; TEMP 36.4; O2SAT 97; BMI 34.3
[2021-09-19 22:24] LABS: MANUAL DIFF FLAG NO
[2021-09-19 22:26] LABS: Basophils Absolute Auto 0.1 X10*3/uL (0.0-0.2); Basophils Percent Auto 0.8 % (0-2); Eosinophils Absolute Auto 0.3 X10*3/uL (0.0-0.4); Eosinophils Percent Auto 4.4 % (0-4); Hematocrit 43.7 % (42.0-52.0); Hemoglobin 14.1 g/dl (14.0-18.0); Imm Gran Abs Auto 0.01 X10*3/uL (0.00-0.03); Imm Gran Pct Auto 0.2 % (0.0-0.4); Lymphocytes Absolute Auto 2.3 X10*3/uL (1.2-4.9); Lymphocytes Percent Auto 35.6 % (20-40); Mean Corpuscular HGB Conc 32.3 g/dl (31.0-36.0); Mean Corpuscular Hemoglobin 28.3 pg (27.0-33.0); Mean Corpuscular Volume 87.8 fL (80.0-98.0); Mean Platelet Volume 11.8 fL (9.4-12.4); Monocytes Absolute Auto 0.5 X10*3/uL (0.1-1.2); Monocytes Percent Auto 7.6 % (2-11); Neutrophils Absolute Auto 3.4 x10*3/uL (2.0-8.3); Neutrophils Percent Auto 51.4 % (45-73); Platelet Count 236 X10*3/uL (160-400); Red Blood Count 4.98 X10*6/uL (4.60-5.80); Red Cell Distribution Width 12.8 % (11.0-16.0); White Blood Count 6.5 X10*3/uL (4.8-10.8)
[2021-09-19 22:31] LABS: Appearance Urine CLEAR; Color Urine YELLOW; Glucose Urine UA NEG (NEG); Leukocyte Esterase Urine NEG (NEG); Nitrite Urine NEG (NEG); PH 5.5 (5.0-8.0); Urine Blood NEG (NEG); Urine Ketones 5 MG/DL (NEG); Urine Protein NEG (NEG-TRACE)
[2021-09-19 22:36] LABS: Bacteria Urine TRACE /LPF; RBC Urine 0 /HPF (0); WBC Urine 0 /HPF (0-4)
[2021-09-19 22:47] LABS: Alanine Aminotransferase 20 U/L (0-40); Alkaline Phosphatase 60 U/L (39-117); Anion Gap 14 (12-20); Aspartate Amino Transferase 20 U/L (5-37); Bilirubin Total 0.6 mg/dL (0.0-1.0); Blood Urea Nitrogen 21 mg/dL (9-16); Calcium 9.6 mg/dL (8.4-10.2); Carbon Dioxide 28 mmol/L (22-29); Chloride 104 mmol/L (96-108); Creatinine Clr Calc Pharmacy 73.2; Estimated Glomerular Filt Rate 56; Glucose Random 85 mg/dL (60-115); Potassium 3.9 mmol/L (3.3-5.1); Sodium 142 mmol/L (135-145)
[2021-09-19 23:15] LABS: Lipase 70 U/L (8-78)
--- NOTE | 2021-09-19 23:48 | ED_ITS ---
HPI - General Adult General Chief complaint: General Medical Stated complaint: kidney pain Time Seen by Provider: 09/19/21 22:58 Source: patient Mode of arrival: ambulatory History of Present Illness HPI narrative: 36-year-old male who presents with right, mid back pain that does not radiate into either flank and has not been associated with fever, chills, nausea, vomiting, urinary pain/burning/frequency. In addition, patient denies any alcohol use/NSAID use, cough. Patient states he also does a lot of heavy lifting at work. Related Data Previous Rx's Medication Instructions Recorded amoxicillin 500 mg-potassium 1 tab PO BID #14 tab 01/13/21 clavulanate 125 mg tablet (Augmentin) azithromycin 500 mg tablet 500 mg PO DAILY 5 Days #5 tab 01/18/21 valacyclovir 1 gram tablet 1,000 mg PO TID 10 Days #30 tab 01/18/21 (Valtrex) artificial tears(hypromellose) 0.5 2 drp OPHTHALMIC (EYE) Q2-4H PRN 01/20/21 % eye drops #15 ml prednisone 20 mg tablet 20 mg PO .COMPLEX #18 tab 03/19/21 sulfamethoxazole 800 1 tab PO BID 7 Days #14 tab 03/19/21 mg-trimethoprim 160 mg tablet hydroxyzine HCl 25 mg tablet 25 mg PO TID 3 Days #9 tab 03/27/21 Allergies Allergy/AdvReac Type Severity Reaction Status Date / Time No Known Allergies Allergy Verified 01/31/21 18:50 [No Known Allergies*] Review of Systems Verdana 4l Review of Systems: Verdana 4d Pertinent positives and Verdana 4d negatives as stated in HPI 10 point review of systems is otherwise negative. Verdana 4d [facility] Past Medical History Source: nursing notes reviewed Medical History No known health problems Surgical History No history of previous surgery Social History Social History Alcohol intake: never Patient Tobacco Use Status: Never used Tobacco Advance Directives: No Advance Directives Information Provided: No Physical Exam Verdana 4l Vital Signs: Verdana 4d Verdana 4d Vital Signs: Verdana 4d Verdana 4Bd Last Vital Signs Verdana 4d [employer] New 4d [employer] New 4d Temp 97.6 F 09/19/21 21:39 [employer] New 4d Pulse 73 09/19/21 21:39 [employer] New 4d Resp 18 09/19/21 21:39 BP 124/79 09/19/21 21:39 Pulse Ox 97 09/19/21 21:39 BMI result Body Mass Index 34.3 VITAL SIGNS: Reviewed. GENERAL: Well developed, well nourished, in no acute distress. HEAD: Normocephalic/atraumatic EYES: PERRLA, EOMI OROPHARYNX: no oral lesions noted, posterior pharynx clear LUNGS: Normal breath sounds. No adventitious sounds or accessory muscle use. SpO2<97> CARDIOVASCULAR: Regular rate and rhythm without noted murmurs ABDOMEN: Soft, non-tender, non-distended with bowel sounds, no CVA tenderness SKIN: Inspection of the skin reveals no rashes NEUROLOGIC: Alert and oriented x 4. Course Course Course Narrative: 36-year-old male with history and clinical presentation suggestive of possible gastritis, musculoskeletal and on review of all investigations no evidence to suggest infectious etiology, no evidence to suggest pancreatitis and low clinical suspicion for any hepatobiliary concerns. Patient was provided with a GI cocktail and encouraged to treat musculoskeletal pain with Tylenol and lidocaine patch and otherwise is discharged home in stable condition. Medical Decision Making Lab Data Result diagrams: 09/19/21 22:19 09/19/21 22:19 Labs: Lab Results 09/19/21 09/19/21 09/19/21 Range/Units 22:19 22:19 22:24 WBC 6.5 (4.8-10.8) X10*3/uL RBC 4.98 (4.60-5.80) X10*6/uL Hgb 14.1 (14.0-18.0) g/dl Hct 43.7 (42.0-52.0) % MCV 87.8 (80.0-98.0) fL MCH 28.3 (27.0-33.0) pg MCHC 32.3 (31.0-36.0) g/dl RDW 12.8 (11.0-16.0) % Plt Count 236 (160-400) X10*3/uL MPV 11.8 (9.4-12.4) fL Immature Gran % (Auto) 0.2 (0.0-0.4) % Neut % (Auto) 51.4 (45-73) % Lymph % (Auto) 35.6 (20-40) % Ransom % (Auto) 7.6 (2-11) % Eos % (Auto) 4.4 H (0-4) % Baso % (Auto) 0.8 (0-2) % Lymph # (Auto) 2.3 (1.2-4.9) X10*3/uL Ransom # (Auto) 0.5 (0.1-1.2) X10*3/uL Eos # (Auto) 0.3 (0.0-0.4) X10*3/uL Baso # (Auto) 0.1 (0.0-0.2) X10*3/uL Abs Immat Gran (auto) 0.01 (0.00-0.03) X10*3/uL Absolute Neuts (auto) 3.4 (2.0-8.3) x10*3/uL Absolute Nucleated RBC 0.000 (0.0-0.012) X10*3/uL Nucleated RBC % (auto) 0.0 (0.0-0.2) /100WBC Sodium 142 (135-145) mmol/L Potassium 3.9 D (3.3-5.1) mmol/L Chloride 104 (96-108) mmol/L Carbon Dioxide 28 (22-29) mmol/L Anion Gap 14 (12-20) BUN 21 H (9-16) mg/dL Creatinine 1.43 H (0.5-1.4) mg/dL Estim Creat Clear Calc 73.2 Estimated GFR 56 Random Glucose 85 D (60-115) mg/dL Calcium 9.6 (8.4-10.2) mg/dL Total Bilirubin 0.6 (0.0-1.0) mg/dL AST 20 D (5-37) U/L ALT 20 (0-40) U/L Alkaline Phosphatase 60 (39-117) U/L Total Protein 7.0 (6.5-8.0) g/dL Albumin 4.0 (3.5-5.0) g/dL Lipase 70 (8-78) U/L Urine Color YELLOW Urine Appearance CLEAR Urine pH 5.5 (5.0-8.0) Ur Specific [place] 1.010 (1.005-1.025) Urine Protein NEG (NEG-TRACE) MG/DL Urine Glucose (UA) NEG (NEG) MG/DL Urine Ketones 5 (NEG) MG/DL Urine Blood NEG (NEG) Urine Nitrite NEG (NEG) Ur Leukocyte Esterase NEG (NEG) Urine RBC 0 (0) /HPF Urine WBC 0 (0-4) /HPF Ur Squamous Epith Cells NONE /LPF Urine Bacteria TRACE /LPF Discharge Plan Discharge Clinical Impression: Musculoskeletal back pain Patient Disposition: Home, Self-Care Instructions: Back Pain (ED), Musculoskeletal Pain (ED) Additional Instructions: 1. Avoid all NSAID use: Motrin, ibuprofen, Aleve, Naprosyn, aspirin, Excedrin 2. Recommend treating your suspected musculoskeletal pain with [id number] Tylenol and lidocaine patch. 3. Follow-up with your primary care provider in the next 2-3 days for re- evaluation and further outpatient management. Return to the ER for acute worsening of symptoms. Prescriptions: No Action amoxicillin-pot clavulanate [Augmentin] 500-125 mg tablet 1 tab PO BID Qty: 14 0RF artificial tears(hypromellose) 0.5 % drops 2 drp ophthalmic (eye) Q2-4H PRN (Reason: dry eye(s)) Qty: 15 0RF hydroxyzine HCl 25 mg tablet 25 mg PO TID 3 Days Qty: 9 0RF azithromycin 500 mg tablet 500 mg PO DAILY 5 Days Qty: 5 0RF valacyclovir [Valtrex] 1 gram tablet 1,000 mg PO TID 10 Days Qty: 30 0RF prednisone 20 mg tablet 20 mg PO .COMPLEX Qty: 18 0RF Rx Instructions: 20 mg PO 3 p.o. daily for 3 days followed by 2 p.o. daily for 3 days followed by 1 p.o. daily for 3 days; sulfamethoxazole-trimethoprim 800-160 mg tablet 1 tab PO BID 7 Days Qty: 14 0RF Referrals: Scott Bullock MD [Primary Care Provider] - 2 days
[2021-09-19 23:58] VITALS: BP 106/72; PULSE 61; RESP 16; TEMP 36.8; O2SAT 98
[2021-09-20] MEDS: Acetaminophen 325 MG TABLET 975 MG PO (00:01)
[2021-09-20] MEDS: Lidocaine 4 % Patch ADH..PATCH 1 PATCH TRANSDERMA (00:02)
[2021-09-20] MEDS: Lidocaine HCl Viscous 2 % 15 ML SOLUTION 10 ML MUCOUS MEM (00:03)
[2021-09-20] MEDS: Magnesium Hydrox/Alum Hydrox 30 ML ORAL.SUSP PO (00:03)
== END 2021-09-20 00:24 | disposition home or self-care (01) ==
PROVIDERS: Emergency Provider Student in an Organized Health Care Education/Training Program; PCP Internal Medicine
DX: N23 Unspecified renal colic (principal); M54.50 Low back pain, unspecified; Z79.899 Other long term (current) drug therapy
CPT/HCPCS: 36415; 80053; 81001; 83690; 85025; 99284

== ENCOUNTER 2021-11-19 00:13 | Emergency (ER) | payer SELFPAY ==
[2021-11-19 00:22] VITALS: BP 122/82; PULSE 91; RESP 16; TEMP 36.7; O2SAT 100; BMI 34.1
--- NOTE | 2021-11-19 00:42 | ED_ITS ---
HPI - General Adult General Chief complaint: General Medical Stated complaint: L arm tingling, rapid pulse ? heart attack ? 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 In addition, patient noted numbness/tingling to the left shoulder that did not involve any other area of the left upper extremity, that has resolved and then patient stated there was an area on the left forearm that has since resolved as well and now states that he had left index finger numbness and states that that is gradually improving. Patient states that when he looked in the mirror he did not notice any facial drooping and denies any use of alcohol/drugs/marijuana. Related Data Previous Rx's Medication Instructions Recorded amoxicillin 500 mg-potassium 1 tab PO BID #14 tab 01/13/21 clavulanate 125 mg tablet (Augmentin) azithromycin 500 mg tablet 500 mg PO DAILY 5 Days #5 tab 01/18/21 valacyclovir 1 gram tablet 1,000 mg PO TID 10 Days #30 tab 01/18/21 (Valtrex) artificial tears(hypromellose) 0.5 2 drp OPHTHALMIC (EYE) Q2-4H PRN 01/20/21 % eye drops #15 ml prednisone 20 mg tablet 20 mg PO .COMPLEX #18 tab 03/19/21 sulfamethoxazole 800 1 tab PO BID 7 Days #14 tab 03/19/21 mg-trimethoprim 160 mg tablet hydroxyzine HCl 25 mg tablet 25 mg PO TID 3 Days #9 tab 03/27/21 Allergies Allergy/AdvReac Type Severity Reaction Status Date / Time No Known Allergies Allergy Verified 01/31/21 18:50 [No Known Allergies*] Review of Systems Review of Systems: Pertinent positives and negatives as stated HPI 10 point review of systems is otherwise negative. PMFSH Past Medical History Source: nursing notes reviewed Medical History No known health problems Surgical History No history of previous surgery Social History Social History Alcohol intake: never Patient Tobacco Use Status: Never used Tobacco Advance Directives: No Physical Exam ED Vital Signs: Vital Signs - 24 hr 11/19/21 00:22 Temperature 98.0 F Pulse Rate 91 Respiratory Rate 16 Blood Pressure 122/82 Pulse Oximetry 100 BMI result Body Mass Index 34.1 VITAL SIGNS: Reviewed. GENERAL: Well developed, well nourished, in no acute distress. HEAD: Normocephalic/atraumatic EYES: PERRLA, EOMI EARS: Ext canals without abnormality, TMs non-bulging and non-erythematous NOSE: Nares patent bilateral OROPHARYNX: no oral lesions noted, posterior pharynx clear and non-erythematous without noted tonsillar enlargement/erythema/exudates NECK: Supple, no adenopathy LUNGS: Normal breath sounds. No adventitious sounds or accessory muscle use. SpO2<100> CARDIOVASCULAR: Regular rate and rhythm without noted murmurs, no JVD or lower extremity edema. ABDOMEN: Soft, non-tender, non-distended with bowel sounds. MUSCULOSKELETAL: No tenderness, deformities, or effusions noted on gross inspection. EXTREMITIES: No cyanosis, clubbing or edema. SKIN: Inspection of the skin reveals no rashes NEUROLOGIC: Alert and oriented x 4. Strength and sensation to light touch were grossly intact x 4, no facial droop (there is residual facial asymmetry noted on the right secondary to patient's reported history of Bennett's palsy), no pronator drift, finger past pointing without deficits, cranial nerves 2-12 grossly intact, heel to martinez is intact. Patient has no ataxia and was noted to ambulate without difficulty. Course Course Course Narrative: 36-year-old male without history of irregular heartbeat, not currently taking any prescription medications and denies any use of alcohol or drugs presents with symptoms inconsistent with stroke or TIA. There are no neurologic deficits noted on examination, however patient is noted to be tremulous and will evaluate for other etiologies but symptoms inconsistent with features of MS, giant cell arteritis, shingles. Review of all investigations negative for acute findings, specifically inflammatory markers were all within normal limits and this taken in conjunction with the atypical presentation have low clinical suspicion for intracranial pathology. In addition, despite discussing with the patient the benefit of obtaining a CT of the head he is declining further imaging at this time. He reports he has had an MRI of the head recently through [facility]. Patient is currently asymptomatic and he is otherwise stable for discharge to home. Medical Decision Making Lab Data Result diagrams: 11/19/21 00:53 11/19/21 00:53 Labs: Lab Results 11/19/21 11/19/21 11/19/21 Range/Units 00:38 00:53 00:53 WBC 8.4 (4.8-10.8) X10*3/uL RBC 5.04 (4.60-5.80) X10*6/uL Hgb 14.3 (14.0-18.0) g/dl Hct 44.2 (42.0-52.0) % MCV 87.7 (80.0-98.0) fL MCH 28.4 (27.0-33.0) pg MCHC 32.4 (31.0-36.0) g/dl RDW 12.2 (11.0-16.0) % Plt Count 276 (160-400) X10*3/uL MPV 11.2 (9.4-12.4) fL Immature Gran % (Auto) 0.2 (0.0-0.4) % Neut % (Auto) 48.2 (45-73) % Lymph % (Auto) 38.8 (20-40) % [place] % (Auto) 9.2 (2-11) % Eos % (Auto) 3.1 (0-4) % Baso % (Auto) 0.5 (0-2) % Lymph # (Auto) 3.3 (1.2-4.9) X10*3/uL [place] # (Auto) 0.8 (0.1-1.2) X10*3/uL Eos # (Auto) 0.3 (0.0-0.4) X10*3/uL Baso # (Auto) 0.0 (0.0-0.2) X10*3/uL Abs Immat Gran (auto) 0.02 (0.00-0.03) X10*3/uL Absolute Neuts (auto) 4.1 (2.0-8.3) x10*3/uL Absolute Nucleated RBC 0.000 (0.0-0.012) X10*3/uL Nucleated RBC % (auto) 0.0 (0.0-0.2) /100WBC ESR 3 (0-15) MM/HR PT (9.9-13.0) SEC INR (0.9-1.1) Sodium (135-145) mmol/L Potassium (3.3-5.1) mmol/L Chloride (96-108) mmol/L Carbon Dioxide (22-29) mmol/L Anion Gap (12-20) BUN (9-16) mg/dL Creatinine (0.5-1.4) mg/dL Estim Creat Clear Calc Estimated GFR POC Glucose 87 (60-115) mg/dL Random Glucose (60-115) mg/dL Calcium (8.4-10.2) mg/dL Total Bilirubin (0.0-1.0) mg/dL AST (5-37) U/L ALT (0-40) U/L Alkaline Phosphatase (39-117) U/L C-Reactive Protein (< or = 0.50) mg/dL Total Protein (6.5-8.0) g/dL Albumin (3.5-5.0) g/dL TSH (0.32-4.0) uIU/mL 11/19/21 11/19/21 Range/Units 00:53 00:53 WBC (4.8-10.8) X10*3/uL RBC (4.60-5.80) X10*6/uL Hgb (14.0-18.0) g/dl Hct (42.0-52.0) % MCV (80.0-98.0) fL MCH (27.0-33.0) pg MCHC (31.0-36.0) g/dl RDW (11.0-16.0) % Plt Count (160-400) X10*3/uL MPV (9.4-12.4) fL Immature Gran % (Auto) (0.0-0.4) % Neut % (Auto) (45-73) % Lymph % (Auto) (20-40) % [place] % (Auto) (2-11) % Eos % (Auto) (0-4) % Baso % (Auto) (0-2) % Lymph # (Auto) (1.2-4.9) X10*3/uL [place] # (Auto) (0.1-1.2) X10*3/uL Eos # (Auto) (0.0-0.4) X10*3/uL Baso # (Auto) (0.0-0.2) X10*3/uL Abs Immat Gran (auto) (0.00-0.03) X10*3/uL Absolute Neuts (auto) (2.0-8.3) x10*3/uL Absolute Nucleated RBC (0.0-0.012) X10*3/uL Nucleated RBC % (auto) (0.0-0.2) /100WBC ESR (0-15) MM/HR PT 10.6 (9.9-13.0) SEC INR 0.9 (0.9-1.1) Sodium 143 (135-145) mmol/L Potassium 4.1 (3.3-5.1) mmol/L Chloride 106 (96-108) mmol/L Carbon Dioxide 25 (22-29) mmol/L Anion Gap 16 (12-20) BUN 24 H (9-16) mg/dL Creatinine 1.35 (0.5-1.4) mg/dL Estim Creat Clear Calc 77.3 Estimated GFR > 60 POC Glucose (60-115) mg/dL Random Glucose 81 (60-115) mg/dL Calcium 9.7 (8.4-10.2) mg/dL Total Bilirubin 0.4 (0.0-1.0) mg/dL AST 13 (5-37) U/L ALT 14 (0-40) U/L Alkaline Phosphatase 79 D (39-117) U/L C-Reactive Protein 0.20 (< or = 0.50) mg/dL Total Protein 7.4 (6.5-8.0) g/dL Albumin 4.1 (3.5-5.0) g/dL TSH 1.04 (0.32-4.0) uIU/mL ECG Data Attestation: I personally reviewed and interpreted this ECG as follows: Prior ECG tracings: available for review Interpretation: Normal sinus rhythm, HR-76, no STEMI, MI/QRS/QTC within normal limits Discharge Plan Discharge Clinical Impression: Arm paresthesia, left, Bennett's palsy, Anxiety Patient Disposition: Home, Self-Care Instructions: Paresthesia (ED), Anxiety (ED) Additional Instructions: 1. Resume all home medications as prescribed. 2. Please follow-up with your primary care provider in the morning for re- evaluation and further outpatient management. Return to the ER for worsening symptoms. Prescriptions: No Action amoxicillin-pot clavulanate [Augmentin] 500-125 mg tablet 1 tab PO BID Qty: 14 0RF artificial tears(hypromellose) 0.5 % drops 2 drp ophthalmic (eye) Q2-4H PRN (Reason: dry eye(s)) Qty: 15 0RF hydroxyzine HCl 25 mg tablet 25 mg PO TID 3 Days Qty: 9 0RF azithromycin 500 mg tablet 500 mg PO DAILY 5 Days Qty: 5 0RF valacyclovir [Valtrex] 1 gram tablet 1,000 mg PO TID 10 Days Qty: 30 0RF prednisone 20 mg tablet 20 mg PO .COMPLEX Qty: 18 0RF Rx Instructions: 20 mg PO 3 p.o. daily for 3 days followed by 2 p.o. daily for 3 days followed by 1 p.o. daily for 3 days; sulfamethoxazole-trimethoprim 800-160 mg tablet 1 tab PO BID 7 Days Qty: 14 0RF Referrals: Scott Bullock MD [Primary Care Provider] - 2 days
--- NOTE | 2021-11-19 00:42 | ECG_ITS ---
Test Reason : PALPITATIONS Blood Pressure : / mmHG Vent. Rate : 076 BPM Atrial Rate : 076 BPM P-R Int : 146 ms QRS Dur : 080 ms QT Int : 342 ms P-R-T Axes : 058 012 040 degrees QTc Int : 384 ms Normal sinus rhythm with sinus arrhythmia Normal ECG When compared with ECG of 31-JAN-2021 19:15, No significant change was found Referred By: Elen Gonzalez Electronically Signed By:MAYDA PENG MD
[2021-11-19 00:44] LABS: Glucose, Whole Blood 87 mg/dL (60-115)
[2021-11-19 00:58] LABS: MANUAL DIFF FLAG NO
[2021-11-19 01:00] LABS: Basophils Percent Auto 0.5 % (0-2); Eosinophils Absolute Auto 0.3 X10*3/uL (0.0-0.4); Eosinophils Percent Auto 3.1 % (0-4); Hematocrit 44.2 % (42.0-52.0); Hemoglobin 14.3 g/dl (14.0-18.0); Imm Gran Abs Auto 0.02 X10*3/uL (0.00-0.03); Imm Gran Pct Auto 0.2 % (0.0-0.4); Lymphocytes Absolute Auto 3.3 X10*3/uL (1.2-4.9); Lymphocytes Percent Auto 38.8 % (20-40); Mean Corpuscular HGB Conc 32.4 g/dl (31.0-36.0); Mean Corpuscular Hemoglobin 28.4 pg (27.0-33.0); Mean Corpuscular Volume 87.7 fL (80.0-98.0); Mean Platelet Volume 11.2 fL (9.4-12.4); Monocytes Absolute Auto 0.8 X10*3/uL (0.1-1.2); Monocytes Percent Auto 9.2 % (2-11); Neutrophils Absolute Auto 4.1 x10*3/uL (2.0-8.3); Neutrophils Percent Auto 48.2 % (45-73); Platelet Count 276 X10*3/uL (160-400); Red Blood Count 5.04 X10*6/uL (4.60-5.80); Red Cell Distribution Width 12.2 % (11.0-16.0); White Blood Count 8.4 X10*3/uL (4.8-10.8)
[2021-11-19 01:13] LABS: INTERNATIONAL NORM RATIO 0.9 (0.9-1.1); Prothrombin Time 10.6 SEC (9.9-13.0)
[2021-11-19 01:15] LABS: Alanine Aminotransferase 14 U/L (0-40); Albumin Level 4.1 g/dL (3.5-5.0); Alkaline Phosphatase 79 U/L (39-117); Anion Gap 16 (12-20); Aspartate Amino Transferase 13 U/L (5-37); Bilirubin Total 0.4 mg/dL (0.0-1.0); Blood Urea Nitrogen 24 mg/dL (9-16); Calcium 9.7 mg/dL (8.4-10.2); Carbon Dioxide 25 mmol/L (22-29); Chloride 106 mmol/L (96-108); Creatinine Clr Calc Pharmacy 77.3; Estimated Glomerular Filt Rate > 60; Glucose Random 81 mg/dL (60-115); Potassium 4.1 mmol/L (3.3-5.1); Sodium 143 mmol/L (135-145); Total Protein 7.4 g/dL (6.5-8.0)
[2021-11-19 01:35] LABS: TSH reflex Free T4 1.04 uIU/mL (0.32-4.0)
[2021-11-19 01:39] LABS: Erythrocyte Sedimentation Rate 3 MM/HR (0-15)
== END 2021-11-19 02:42 | disposition home or self-care (01) ==
PROVIDERS: Emergency Provider Student in an Organized Health Care Education/Training Program; PCP Internal Medicine
DX: R20.2 Paresthesia of skin (principal); G51.0 Bell's palsy; F41.9 Anxiety disorder, unspecified
CPT/HCPCS: 36415; 80053; 82947; 84443; 85025; 85610; 85652; 86140; 93005; 99284

== ENCOUNTER 2022-02-16 09:32 | Emergency (ER) | payer MEDICAID, SELFPAY ==
[2022-02-16 09:39] VITALS: BP 123/84; PULSE 76; RESP 19; TEMP 36.6; O2SAT 98; BMI 31.6
--- NOTE | 2022-02-16 09:44 | ED.GENADULT ---
HPI - General Adult General Chief complaint: Extremity Injury, Lower Stated complaint: gout flare up Time Seen by Provider: 02/16/22 09:44 Source: patient Mode of arrival: ambulatory Limitations: no limitations History of Present Illness HPI narrative: Patient is a 36 year old male presenting to the emergency department today with left great toe pain. Patient states that he has had flares of gout in his left great toe many times before but he has never gotten treatment for it. Patient states that he can't take NSAIDs due to kidney problems but would like to try Allopurinol. Patient denies any dizziness, lightheadedness, abdominal pain, nausea, vomiting, fever, chills, blurry vision, double vision, loss of vision, chest pain, difficulty breathing, shortness of breath, back pain, night sweats, pain with urination, increased urinary frequency, increased urinary urgency, blood in his urine or stool, syncope or a near syncopal episode, recent trauma or falls, bowel incontinence, bladder incontinence, bowel retention, bladder retention, or any other complaints at this time. Onset (ago): day(s) Location: left and lower extremity (great toe) Radiation: non-radiation Severity: mild Severity scale (1-10): 3 Quality: sharp Relieving factors: none Exacerbating factors: none Associated symptoms: denies other symptoms Treatments prior to arrival: none Related Data Previous Rx's Medication Instructions Recorded amoxicillin 500 mg-potassium 1 tab PO BID #14 tabs 01/13/21 clavulanate 125 mg tablet (Augmentin) azithromycin 500 mg tablet 500 mg PO DAILY 5 days #5 tabs 01/18/21 valacyclovir 1 gram tablet 1,000 mg PO TID 10 days #30 tabs 01/18/21 (Valtrex) artificial tears(hypromellose) 0.5 2 drp ophthalmic (eye) Q2-4H PRN 01/20/21 % eye drops dry eye(s) #15 mL prednisone 20 mg tablet 20 mg PO .COMPLEX #18 tabs 03/19/21 sulfamethoxazole 800 1 tab PO BID 7 days #14 tabs 03/19/21 mg-trimethoprim 160 mg tablet hydroxyzine HCl 25 mg tablet 25 mg PO TID 3 days #9 tabs 03/27/21 allopurinol 100 mg tablet 50 mg PO DAILY #14 tabs 02/16/22 Allergies Allergy/AdvReac Type Severity Reaction Status Date / Time No Known Allergies Allergy Verified 01/31/21 18:50 [No Known Allergies*] Review of Systems Constitutional: Constitutional: Reports no additional constitutional complaints, Denies chills, Denies fever(s) and Denies night sweats Eyes: Eyes: Reports no additional eye complaints, Denies blurry vision, Denies change in vision, Denies diplopia, Denies eye discharge, Denies loss of vision and Denies eye pain ENT: Denies dizziness Cardiovascular: Cardiovascular: Reports no additional cardiovascular complaints, Denies chest pain, Denies lightheadedness, Denies Loss of Consciousness and Denies dyspnea Respiratory: Respiratory: Reports no additional respiratory complaints and Denies dyspnea Gastrointestinal: Gastrointestinal: Reports no additional gastrointestinal complaints, Denies abdominal pain, Denies melena, Denies hematochezia, Denies change in bowel habits and Denies change in stool character Genitourinary: Genitourinary: Reports no additional male genitourinary complaints, Denies hematuria, Denies oliguria, Denies difficulty urinating, Denies dysuria, Denies urinary frequency, Denies urinary hesitancy, Denies urinary incontinence and Denies urinary urgency Musculoskeletal: Musculoskeletal: Reports no additional musculoskeletal complaints, Denies numbness and Denies tingling Comments: left great toe pain Neurologic: Denies dizziness, Denies loss of vision, Denies numbness and Denies tingling Psychiatric: Psychiatric: Reports no additional psychiatric complaints Endocrine: Endocrine: Reports no additional endocrine complaints Hematologic/Lymphatic: Hematologic/Lymphatic: Reports no additional hematologic/lymphatic complaints Allergic/Immunologic: Allergic/Immunologic: Reports no additional allergic/immunologic complaints [facility] Past Medical History Attestation statement: The following information was validated with the patient. Source: old records reviewed Medical History No known health problems Surgical History No history of previous surgery Social History Social History Alcohol intake: unknown Patient Tobacco Use Status: Never used Tobacco Advance Directives: No Advance Directives Information Provided: No Physical Exam ED Vital Signs: Vital Signs - 24 hr 02/16/22 09:39 Temperature 98 F Pulse Rate 76 Respiratory Rate 19 Blood Pressure 123/84 Pulse Oximetry 98 Oxygen Delivery Method Room Air BMI result Body Mass Index 31.6 Const General: cooperative, no acute distress, alert and awake Nutritional Appearance: well nourished Orientation/consciousness: patient oriented x3 Limitations: no limitations HENMT Head: Yes normal to inspection and Yes atraumatic Ears: hearing grossly normal bilaterally and external ears normal General nose exam: Normal external nose present, no nasal discharge noted and no epistaxis Face and sinus: Yes normal facial exam, No abrasion and No laceration Mouth: Normal oral and palatal mucosa present, no drooling and no muffled voice Eyes General: appearance normal, both eyes and all related structures Periorbital: periorbital findings normal Eyelids: Yes eyelids normal Conjunctivae: conjunctivae normal Pupils: Equal, round and reactive pupils present EOM: EOMs intact bilaterally Neck Neck: Yes normal visual inspection, Yes full ROM and Yes no lymphadenopathy Chest Chest palpation & inspection: normal inspection of the chest Resp Effort & Inspection: normal respiratory effort and able to speak in complete sentences Auscultation: clear to auscultation bilaterally Cardio Rate: regular rate Rhythm: regular rhythm GI Inspection: Yes normal to inspection Neuro General: patient oriented x3 and moves all extremities Cranial nerves: Yes Equal, round and reactive pupils present Cognition (Neuro): normal cognition Motor exam (neuro): 5/5 motor strength present throughout Sensory Exam: Normal double simultaneous stimulation for sensation Coordination: [id number] test normal Extrem General: Yes normal to inspection, Yes full ROM and Yes capillary refill normal Psych Appearance: grossly normal Mental Status: mental status grossly normal Affect: normal affect Attitude: cooperative Thought process: Normal thought process present Thought content: Normal thought content present Insight: Good insight present (Psych) Medical Decision Making [facility] Narrative Medical decision making narrative: Patient is a 36 year old male presenting to the emergency department today with left great toe pain. Patient's physical exam was unremarkable. I explained my physical exam findings to the patient. I answered all questions asked by the patient. I stressed the importance of the patient taking his medication as prescribed. I stressed the importance of the patient following up with his primary care provider and a group chief operator. I stressed the importance of the patient returning to the emergency department immediately if his symptoms were to worsen or if he were to develop any dizziness, shortness of breath, difficulty breathing, chest pain, blurry vision, loss of vision, nausea, vomiting, abdominal pain, fever, chills, back pain, or any other complaints. Patient verbalized agreement and understanding with this treatment plan and discharge. Differential Diagnosis Differential Diagnosis: gout flare Medical Records Medical records reviewed: Yes I reviewed the patient's medical records. Discharge Plan Discharge Clinical Impression: Gout Patient Disposition: Home, Self-Care Instructions: Low Purine Diet (ED), Gout (ED) Additional Instructions: Follow up with your primary care provider. Return to the emergency department immediately if your symptoms worsen or if you develop any dizziness, shortness of breath, difficulty breathing, chest pain, blurry vision, loss of vision, nausea, vomiting, abdominal pain, fever, chills, back pain, or any other complaints. Prescriptions: New allopurinol 100 mg tablet 50 mg PO DAILY Qty: 14 0RF No Action amoxicillin-pot clavulanate [Augmentin] 500-125 mg tablet 1 tab PO BID Qty: 14 0RF artificial tears(hypromellose) 0.5 % drops 2 drp ophthalmic (eye) Q2-4H PRN (Reason: dry eye(s)) Qty: 15 0RF hydroxyzine HCl 25 mg tablet 25 mg PO TID 3 Days Qty: 9 0RF azithromycin 500 mg tablet 500 mg PO DAILY 5 Days Qty: 5 0RF valacyclovir [Valtrex] 1 gram tablet 1,000 mg PO TID 10 Days Qty: 30 0RF prednisone 20 mg tablet 20 mg PO .COMPLEX Qty: 18 0RF Rx Instructions: 20 mg PO 3 p.o. daily for 3 days followed by 2 p.o. daily for 3 days followed by 1 p.o. daily for 3 days; sulfamethoxazole-trimethoprim 800-160 mg tablet 1 tab PO BID 7 Days Qty: 14 0RF Referrals: Mason Loza DPM [Physician] - (Call to establish and follow up with a group chief operator (grounds restoration specialist). ) Scott Bullock MD [Primary Care Provider] - (Follow up with your primary care provider. ) Print Language: Mongolian
== END 2022-02-16 10:10 | disposition home or self-care (01) ==
PROVIDERS: Emergency Provider Emergency Medicine Emergency Medical Services; PCP Internal Medicine
DX: M10.9 Gout, unspecified (principal); M79.675 Pain in left toe(s)
CPT/HCPCS: 99283

== ENCOUNTER 2022-07-25 01:07 | Emergency (ER) | payer OTHER, SELFPAY ==
--- NOTE | 2022-07-25 | ECG_ITS ---
Test Reason : NUMBNESS Blood Pressure : / mmHG Vent. Rate : 068 BPM Atrial Rate : 068 BPM P-R Int : 150 ms QRS Dur : 082 ms QT Int : 380 ms P-R-T Axes : 053 015 023 degrees QTc Int : 404 ms Normal sinus rhythm Normal ECG When compared with ECG of 19-NOV-2021 00:45, No significant change was found Referred By: Generic ED Physician Electronically Signed By:MAYDA PENG MD
[2022-07-25 01:12] VITALS: BP 117/78; PULSE 66; RESP 16; TEMP 36.6; O2SAT 99; BMI 34.3
[2022-07-25 01:50] VITALS: BP 135/79; PULSE 66; RESP 16; TEMP 36.7; O2SAT 98
[2022-07-25 02:05] LABS: MANUAL DIFF FLAG NO
[2022-07-25 02:06] LABS: Basophils Percent Auto 0.5 % (0-2); Eosinophils Absolute Auto 0.3 X10*3/uL (0.0-0.4); Eosinophils Percent Auto 3.3 % (0-4); Hematocrit 44.6 % (42.0-52.0); Hemoglobin 14.4 g/dl (14.0-18.0); Imm Gran Abs Auto 0.01 X10*3/uL (0.00-0.03); Imm Gran Pct Auto 0.1 % (0.0-0.4); Lymphocytes Absolute Auto 3.1 X10*3/uL (1.2-4.9); Lymphocytes Percent Auto 41.2 % (20-40); Mean Corpuscular HGB Conc 32.3 g/dl (31.0-36.0); Mean Corpuscular Volume 86.6 fL (80.0-98.0); Mean Platelet Volume 10.5 fL (9.4-12.4); Monocytes Absolute Auto 0.6 X10*3/uL (0.1-1.2); Monocytes Percent Auto 8.2 % (2-11); Neutrophils Absolute Auto 3.5 x10*3/uL (2.0-8.3); Neutrophils Percent Auto 46.7 % (45-73); Platelet Count 286 X10*3/uL (160-400); Red Blood Count 5.15 X10*6/uL (4.60-5.80); Red Cell Distribution Width 12.2 % (11.0-16.0); White Blood Count 7.5 X10*3/uL (4.8-10.8)
[2022-07-25 02:21] LABS: Appearance Urine Clear; Color Urine Yellow; Glucose Urine UA Negative (Negative); Leukocyte Esterase Urine Negative (Negative); Nitrite Urine Negative (Negative); Specific Gravity - Urine <= 1.005 (1.005-1.025); Urine Blood Negative (Negative); Urine Ketones Negative (Negative); Urine Protein Negative (Neg-Trace)
[2022-07-25 02:29] LABS: Alanine Aminotransferase 19 U/L (0-40); Albumin Level 3.9 g/dL (3.5-5.0); Alkaline Phosphatase 56 U/L (39-117); Anion Gap 13 (12-20); Aspartate Amino Transferase 15 U/L (5-37); Bilirubin Direct 0.2 mg/dL (0.0-0.5); Bilirubin Total 0.4 mg/dL (0.0-1.0); Blood Urea Nitrogen 15 mg/dL (9-16); Calcium 9.1 mg/dL (8.4-10.2); Carbon Dioxide 25 mmol/L (22-29); Chloride 105 mmol/L (96-108); Creatinine Clr Calc Pharmacy 85.7; Estimated Glomerular Filt Rate > 60; Glucose Random 94 mg/dL (60-115); Lipase 36 U/L (8-78); Sodium 139 mmol/L (135-145); Total Protein 7.1 g/dL (6.5-8.0)
[2022-07-25 02:39] LABS: Troponin-I High Sensitivity < 3.5 ng/L (<3.5-35.0)
--- NOTE | 2022-07-25 03:17 | ED.GENADULT ---
HPI - General Adult General Chief complaint: General Medical Stated complaint: left arm tingling sensation, head pain Time Seen by Provider: 07/25/22 01:39 Source: patient Mode of arrival: ambulatory Limitations: no limitations History of Present Illness HPI narrative: 37-year-old male otherwise healthy came in for evaluation of left arm numbness. Patient was sleeping woke up with left arm numbness and small area on top of the scalp. Patient otherwise decline any slurred speech or headache or dizziness, patient has no other comorbidity in particular no hypertension, no high cholesterol, no diabetes also declined any personal or family history of strokes. 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 Related Data Previous Rx's Medication Instructions Recorded amoxicillin 500 mg-potassium 1 tab PO BID #14 tabs 01/13/21 clavulanate 125 mg tablet (Augmentin) azithromycin 500 mg tablet 500 mg PO DAILY 5 days #5 tabs 01/18/21 valacyclovir 1 gram tablet 1,000 mg PO TID 10 days #30 tabs 01/18/21 (Valtrex) artificial tears(hypromellose) 0.5 2 drp ophthalmic (eye) Q2-4H PRN 01/20/21 % eye drops dry eye(s) #15 mL prednisone 20 mg tablet 20 mg PO .COMPLEX #18 tabs 03/19/21 sulfamethoxazole 800 1 tab PO BID 7 days #14 tabs 03/19/21 mg-trimethoprim 160 mg tablet hydroxyzine HCl 25 mg tablet 25 mg PO TID 3 days #9 tabs 03/27/21 allopurinol 100 mg tablet 50 mg PO DAILY #14 tabs 02/16/22 Allergies Allergy/AdvReac Type Severity Reaction Status Date / Time No Known Allergies Allergy Verified 01/31/21 18:50 [No Known Allergies*] Review of Systems Review of Systems: All other systems are reviewed and are negative Constitutional: Reports as per HPI and Reports no additional constitutional complaints Eyes: Reports as per HPI and Reports no additional eye complaints Reports system reviewed and no additional complaints, except as documented Cardiovascular: Reports as per HPI and Reports no additional cardiovascular complaints Respiratory: Reports as per HPI and Reports no additional respiratory complaints Gastrointestinal: Reports as per HPI and Reports no additional gastrointestinal complaints Genitourinary: Reports no additional female genitourinary complaints Musculoskeletal: Reports no additional musculoskeletal complaints Skin/Breast: Reports system reviewed and no additional complaints, except as docu Psychiatric: Reports no additional psychiatric complaints Endocrine: Reports no additional endocrine complaints Hematologic/Lymphatic: Reports no additional hematologic/lymphatic complaints Allergic/Immunologic: Reports no additional allergic/immunologic complaints Reports system reviewed and no additional complaints, except as documented and Reports Abnormal speech present ON LICENSE OF [facility] Past Medical History Medical History No known health problems Surgical History No history of previous surgery Social History Social History Alcohol intake: unknown Patient Tobacco Use Status: Never used Tobacco Advance Directives: No Physical Exam ED Vital Signs: Vital Signs - 24 hr 07/25/22 01:12 07/25/22 01:50 Temperature 98 F 98.0 F Pulse Rate 66 66 Respiratory Rate 16 16 Blood Pressure 117/78 135/79 Pulse Oximetry 99 98 Oxygen Delivery Method Room Air Room Air BMI result Body Mass Index 34.3 Vital signs have been reviewed as appeared to be correct. Blood pressure normal. Heart rate normal. Respiration rate normal. Temperature normal. Oxygen saturation normal. Appearance: Alert. Oriented X3. No acute distress. Head: Normal external exam. Normocephalic. Atraumatic. No Scott signs noted. No raccoon eyes noted Eyes: PERRLA. EOMI. Conjunctiva and sclera normal. Eyelids normal. ENT: TM's Normal. Pharynx normal. Uvula midline. Moist mucous membranes. No trismus noted. No drooling noted. No muffled voice noted. Neck: Normal inspection. Neck supple. FROM. No adenopathy. Thyroid Normal. No meningeal signs. No neck mass noted. CVS: Normal heart rate and rhythm. Heart sound normal. No murmurs noted. Pulses normal throughout. Respiratory: No respiratory distress. Painless inspiration. Breath sounds normal. No wheezes/rales/rhonchi noted. Chest nontender. No accessory muscle usage noted or decreased air movement noted. Abdomen: Soft and nontender. Bowel sounds normal in all 4 quadrants. No distention noted. No organomegaly noted. No visible injury noted. Back: No CVA tenderness. Full range of motion noted. Skin: Skin warm and dry. Normal skin color. Normal skin turgor. No rashes/lesions/lacerations noted. Extremities: No lower extremity edema. Extremities exhibit normal range of motion. Extremities nontender. Neuro: Oriented X 3. 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 No motor deficit. No sensory deficit. Reflexes normal. NIH Stroke Scale Time: 03:20 Level of Consciousness: Alert Level of Consciousness Questions: Answers both questions correctly Level of Consciousness Commands: Performs both tasks correctly Best Gaze: Normal Visual: No visual loss Facial Palsy: Normal Motor Arm (Right): No drift Motor Arm (Left): No drift Motor Leg (Right): No drift Motor Leg (Left): No drift Limb Ataxia: Absent Sensory: Normal Best Language: No aphasia Dysarthia: Normal Extinction and Inattention: No abnormality Score: 0 Course Course Course Narrative: 37-year-old male came in for evaluation of left arm numbness while patient waiting in the ED symptoms resolved, no neuro deficit at the moment. Patient feels no headache or dizziness. Medical Decision Making Medical Decision Making Differential Diagnoses: Differential diagnosis (Cervical radiculopathy/CVA.) Lab Attestation: I reviewed the patient's lab results. Tests considered but not performed: Tests Considered But Not Performed (Head CT was considered but patient declined it concern of exposure to radiation especially had multiple CT in the past.) Discharge Plan Discharge Clinical Impression: Left cervical radiculopathy Patient Disposition: Home, Self-Care Instructions: Cervical Radiculopathy (ED) Prescriptions: No Action amoxicillin-pot clavulanate [Augmentin] 500-125 mg tablet 1 tab PO BID Qty: 14 0RF artificial tears(hypromellose) 0.5 % drops 2 drp ophthalmic (eye) Q2-4H PRN (Reason: dry eye(s)) Qty: 15 0RF hydroxyzine HCl 25 mg tablet 25 mg PO TID 3 Days Qty: 9 0RF allopurinol 100 mg tablet 50 mg PO DAILY Qty: 14 0RF azithromycin 500 mg tablet 500 mg PO DAILY 5 Days Qty: 5 0RF valacyclovir [Valtrex] 1 gram tablet 1,000 mg PO TID 10 Days Qty: 30 0RF prednisone 20 mg tablet 20 mg PO .COMPLEX Qty: 18 0RF Rx Instructions: 20 mg PO 3 p.o. daily for 3 days followed by 2 p.o. daily for 3 days followed by 1 p.o. daily for 3 days; sulfamethoxazole-trimethoprim 800-160 mg tablet 1 tab PO BID 7 Days Qty: 14 0RF Referrals: Physician,Unknown J [Primary Care Provider] -
--- NOTE | 2022-07-25 03:32 | PC.NURSE ---
Discharge instructions reviewed with pt. Pt verbalizes understanding.
== END 2022-07-25 03:33 | disposition home or self-care (01) ==
PROVIDERS: Emergency Provider Emergency Medicine
DX: M54.12 Radiculopathy, cervical region (principal); R20.2 Paresthesia of skin; R51.9 Headache, unspecified; Z79.899 Other long term (current) drug therapy
CPT/HCPCS: 36415; 80048; 80076; 81003; 83690; 84484; 85025; 93005; 99283; 99284

== ENCOUNTER 2022-08-15 09:23 | Emergency (ER) | payer OTHER, SELFPAY ==
[2022-08-15 09:26] VITALS: BP 140/74; PULSE 83; RESP 18; TEMP 37.1; O2SAT 98; BMI 34.3
--- NOTE | 2022-08-15 10:10 | ED.EAR ---
HPI - Ear Problem General Chief complaint: Ear Problems Stated complaint: ear pain Time Seen by Provider: 08/15/22 10:00 Source: patient Mode of arrival: ambulatory History of Present Illness HPI Narrative: 37-year-old male with no significant past medical history presenting to the ED complaining of right ear pain x2 days. Reports pain radiates down right throat. Denies hearing loss, drainage from her, fever, chills, cough, SOB/CP, sick contacts MD Complaint: ear pain Location: right ear Duration: constant Related Data Previous Rx's Medication Instructions Recorded amoxicillin 500 mg-potassium 1 tab PO BID #14 tabs 01/13/21 clavulanate 125 mg tablet (Augmentin) azithromycin 500 mg tablet 500 mg PO DAILY 5 days #5 tabs 01/18/21 valacyclovir 1 gram tablet 1,000 mg PO TID 10 days #30 tabs 01/18/21 (Valtrex) artificial tears(hypromellose) 0.5 2 drp ophthalmic (eye) Q2-4H PRN 01/20/21 % eye drops dry eye(s) #15 mL prednisone 20 mg tablet 20 mg PO .COMPLEX #18 tabs 03/19/21 sulfamethoxazole 800 1 tab PO BID 7 days #14 tabs 03/19/21 mg-trimethoprim 160 mg tablet hydroxyzine HCl 25 mg tablet 25 mg PO TID 3 days #9 tabs 03/27/21 allopurinol 100 mg tablet 50 mg PO DAILY #14 tabs 02/16/22 amoxicillin 875 mg-potassium 1 tab PO BID 7 days #14 tabs 08/15/22 clavulanate 125 mg tablet Allergies Allergy/AdvReac Type Severity Reaction Status Date / Time No Known Allergies Allergy Verified 01/31/21 18:50 [No Known Allergies*] Review of Systems Review of Systems: Constitutional: No Fever, No Chills ENT/Mouth: + Ear Pain, No Nasal Congestion, No Hoarseness, No sore throat, No Rhinorrhea, No Swallowing Difficulty Cardiovascular: No Chest Pain, No SOB Respiratory: No Cough, No Sputum, No Wheezing Gastrointestinal: No Nausea, No Vomiting, No Diarrhea, No Constipation, No Abdominal pain Musculoskeletal: No joint pain, No Myalgias, No Joint Swelling Skin: No Skin Lesions, No rash Neuro: No Weakness Yes all other systems are reviewed and are negative Constitutional: Constitutional: Reports as per HPI [facility] Past Medical History Attestation statement: The following information was validated with the patient. Medical History No known health problems Surgical History No history of previous surgery Social History Social History Alcohol intake: unknown Patient Tobacco Use Status: Never used Tobacco Physical Exam Vital Signs: Vital Signs: Last Vital Signs Temp 98.7 F 08/15/22 09:26 Pulse 83 08/15/22 09:26 Resp 18 08/15/22 09:26 BP 140/74 H 08/15/22 09:26 Pulse Ox 98 08/15/22 09:26 O2 Del Method 08/15/22 09:26 BMI result Body Mass Index 34.3 Const: General: cooperative, healthy appearing and no acute distress Orientation/consciousness: patient oriented x3 Limitations: no limitations HEENT: Head: Yes normal to inspection and Yes atraumatic Ears: hearing grossly normal bilaterally, external ears normal, mastoids normal and TM abnormal wth effusion (right) and erythematous on the right General nose exam: Normal external nose present Face and sinus: Yes normal facial exam Mouth: Normal oral and palatal mucosa present Throat: Yes posterior oropharynx normal, Yes tonsils normal, Yes uvula midline, No uvula laterally displaced and No uvular edema Eyes: General: appearance normal, both eyes and all related structures EOM: EOMs intact bilaterally Neck: Other: + right-sided submandibular lymphadenopathy Neck: Yes normal visual inspection, Yes no meningeal signs, Yes trachea midline, Yes supple, No anterior neck swelling and Yes lymphadenopathy Resp: Effort & Inspection: normal respiratory effort and no respiratory distress Skin: Rashes: no rashes Wounds: no wounds Neuro: General: patient oriented x3, tone normal and no meningeal signs Gait exam (Neuro): Normal gait present Extrem: General: Yes normal to inspection Medical Decision Making Medical Decision Making MDM Narrative: 37-year-old male with no significant past medical history presenting to the ED complaining of right ear pain x2 days. On exam vital signs stable, NAD, nontoxic appearing, right ear consistent with otitis media, mastoids WNL, oropharynx immunocompromised right-sided submandibular lymphadenopathy. Low suspicion for mastoiditis or malignant otitis externa Plan: Abx, discharge Differential Diagnosis Differential Diagnoses: The differential diagnosis associated with the presentation includes As above Discharge Plan Discharge Clinical Impression: Otitis media Patient Disposition: Home, Self-Care Instructions: Ear Infection (ED) Additional Instructions: You have an inner ear infection. Augmentin is an antibiotic please take as prescribed. Stay hydrated. Rest. Take Tylenol and Motrin Follow-up with her doctor. If symptoms persist or worsen return to the emergency department Prescriptions: New amoxicillin-pot clavulanate 875-125 mg tablet 1 tab PO BID 7 Days Qty: 14 0RF No Action amoxicillin-pot clavulanate [Augmentin] 500-125 mg tablet 1 tab PO BID Qty: 14 0RF artificial tears(hypromellose) 0.5 % drops 2 drp ophthalmic (eye) Q2-4H PRN (Reason: dry eye(s)) Qty: 15 0RF hydroxyzine HCl 25 mg tablet 25 mg PO TID 3 Days Qty: 9 0RF allopurinol 100 mg tablet 50 mg PO DAILY Qty: 14 0RF azithromycin 500 mg tablet 500 mg PO DAILY 5 Days Qty: 5 0RF valacyclovir [Valtrex] 1 gram tablet 1,000 mg PO TID 10 Days Qty: 30 0RF prednisone 20 mg tablet 20 mg PO .COMPLEX Qty: 18 0RF Rx Instructions: 20 mg PO 3 p.o. daily for 3 days followed by 2 p.o. daily for 3 days followed by 1 p.o. daily for 3 days; sulfamethoxazole-trimethoprim 800-160 mg tablet 1 tab PO BID 7 Days Qty: 14 0RF Referrals: Scott Bullock MD [Primary Care Provider] - 1 week
--- NOTE | 2022-08-15 10:51 | PC.NURSE ---
PT AWAKE ALERT AND ORIENTED X 3 SKIN WARM AND DRY. RESP UNLABORED. DENIES N/V. EVALUATED BY PROVIDER. PLAN IS FOR DC HOME WITH ABX SENT TO PHARMACY. PT AGREEABLE TO PLAN.
== END 2022-08-15 10:53 | disposition home or self-care (01) ==
PROVIDERS: Emergency Provider Student in an Organized Health Care Education/Training Program; PCP Internal Medicine
DX: H66.91 Otitis media, unspecified, right ear (principal); H92.01 Otalgia, right ear
CPT/HCPCS: 99282; 99283

== ENCOUNTER 2022-09-21 00:57 | Emergency (ER) | payer OTHER, SELFPAY ==
[2022-09-21 01:16] VITALS: BP 130/77; PULSE 78; RESP 18; TEMP 36.2; O2SAT 98; BMI 34.3
--- NOTE | 2022-09-21 01:36 | ED.BACK ---
HPI - Back Pain/Injury General Chief Complaint: Back Pain/Injury Stated Complaint: Back pain Time Seen by Provider: 09/21/22 01:15 Source: patient Mode of arrival: ambulatory History of Present Illness HPI Narrative: 37-year-old male who presents with concerns at his bilateral mid back pain is associated with kidney injury, he denies any fever, chills, urinary symptoms and denies any traumatic injury. Related Data Previous Rx's Medication Instructions Recorded amoxicillin 500 mg-potassium 1 tab PO BID #14 tabs 01/13/21 clavulanate 125 mg tablet (Augmentin) azithromycin 500 mg tablet 500 mg PO DAILY 5 days #5 tabs 01/18/21 valacyclovir 1 gram tablet 1,000 mg PO TID 10 days #30 tabs 01/18/21 (Valtrex) artificial tears(hypromellose) 0.5 2 drp ophthalmic (eye) Q2-4H PRN 01/20/21 % eye drops dry eye(s) #15 mL prednisone 20 mg tablet 20 mg PO .COMPLEX #18 tabs 03/19/21 sulfamethoxazole 800 1 tab PO BID 7 days #14 tabs 03/19/21 mg-trimethoprim 160 mg tablet hydroxyzine HCl 25 mg tablet 25 mg PO TID 3 days #9 tabs 03/27/21 allopurinol 100 mg tablet 50 mg PO DAILY #14 tabs 02/16/22 amoxicillin 875 mg-potassium 1 tab PO BID 7 days #14 tabs 08/15/22 clavulanate 125 mg tablet cyclobenzaprine 5 mg tablet 5 mg PO BEDTIME PRN muscle spasm 09/21/22 #4 tabs Allergies Allergy/AdvReac Type Severity Reaction Status Date / Time No Known Allergies Allergy Verified 09/21/22 01:18 [No Known Allergies*] Review of Systems Review of Systems: Pertinent positives and negatives as stated in HPI [facility] Past Medical History Source: nursing notes reviewed Medical History No known health problems Surgical History No history of previous surgery Social History Social History Alcohol intake: unknown Patient Tobacco Use Status: Never used Tobacco Physical Exam Vital Signs: Vital Signs: Last Vital Signs Temp 97.2 F 09/21/22 01:16 Pulse 78 09/21/22 01:16 Resp 18 09/21/22 01:16 BP 130/77 09/21/22 01:16 Pulse Ox 98 09/21/22 01:16 O2 Del Method 09/21/22 01:16 BMI result Body Mass Index 34.3 VITAL SIGNS: Reviewed. GENERAL: Well developed, well nourished, in no acute distress. HEAD: Normocephalic/atraumatic EYES: PERRLA, EOMI EARS: Ext canals without abnormality OROPHARYNX: no oral lesions noted, posterior pharynx clear LUNGS: Normal breath sounds. No adventitious sounds or accessory muscle use. SpO2<98> CARDIOVASCULAR: Regular rate and rhythm without noted murmurs ABDOMEN: Soft, non-tender, non-distended with bowel sounds, no CVA tenderness BACK: There is no midline vertebral tenderness or step-offs. NEUROLOGIC: Alert and oriented x 4. Strength and sensation to light touch were grossly intact x 4. Medications Administered Discontinued Medications Generic Name Dose Route Start Last Admin Trade Name Arthurq PRN Reason Stop Dose Admin Lidocaine 1 patch 09/21/22 01:08 09/21/22 01:55 Lidocaine 4 % Patch Adh..Patch TRANSDERMA 09/21/22 01:09 1 patch ONCE ONE Administration Protocol Medical Decision Making Medical Decision Making [facility] Narrative: 37-year-old male with mid back pain that is atraumatic in nature not associated with any fever, chills. Doubt that this is indicative renal colic or infectious etiology. Will pursue urinalysis. Review of all investigations skin my interpretation is that this is musculoskeletal/muscle spasm in nature. I reassured the patient that his urinalysis looked good, he accepts the Tylenol and lidocaine patch will be discharged home in stable condition. Differential Diagnosis Differential Diagnoses: The differential diagnosis associated with the presentation includes Please see the discussion above Lab Data [facility] Lab Attestation statement: I reviewed the patient's lab results. Please see the discussion above Labs: Lab Results 09/21/22 Range/Units 01:51 Urine Color Yellow Urine Appearance Clear Urine pH 5.5 (5.0-9.0) Ur Specific Merritt <= 1.005 (1.005-1.025) Urine Protein Negative (Neg-Trace) mg/dL Urine Glucose (UA) Negative (Negative) mg/dL Urine Ketones Negative (Negative) mg/dL Urine Blood Negative (Negative) Urine Nitrite Negative (Negative) Ur Leukocyte Esterase Negative (Negative) External Record Review External record reviewed: Outpatient record and Prior outpatient labs Discharge Plan Discharge Clinical Impression: Back pain, Muscle spasm Patient Disposition: Home, Self-Care Instructions: Muscle Spasm (ED), Back Pain (ED) Additional Instructions: 1. Tylenol 1000 mg, orally, every 6 hours as needed for pain control. Do not exceed 4000 mg within 24 hours. 2. Lidocaine patch, apply this to area of maximal tenderness as directed on the outside packaging 3. I have sent a prescription for muscle relaxant to your pharmacy and this should be used at night prior to going to sleep. 4. Please consider following up with your primary care provider in the next 1-2 days for re-evaluation. Please return to the ER for any worsening of your symptoms. Prescriptions: New cyclobenzaprine 5 mg tablet 5 mg PO BEDTIME PRN (Reason: muscle spasm) Qty: 4 0RF No Action amoxicillin-pot clavulanate [Augmentin] 500-125 mg tablet 1 tab PO BID Qty: 14 0RF artificial tears(hypromellose) 0.5 % drops 2 drp ophthalmic (eye) Q2-4H PRN (Reason: dry eye(s)) Qty: 15 0RF hydroxyzine HCl 25 mg tablet 25 mg PO TID 3 Days Qty: 9 0RF amoxicillin-pot clavulanate 875-125 mg tablet 1 tab PO BID 7 Days Qty: 14 0RF allopurinol 100 mg tablet 50 mg PO DAILY Qty: 14 0RF azithromycin 500 mg tablet 500 mg PO DAILY 5 Days Qty: 5 0RF valacyclovir [Valtrex] 1 gram tablet 1,000 mg PO TID 10 Days Qty: 30 0RF prednisone 20 mg tablet 20 mg PO .COMPLEX Qty: 18 0RF Rx Instructions: 20 mg PO 3 p.o. daily for 3 days followed by 2 p.o. daily for 3 days followed by 1 p.o. daily for 3 days; sulfamethoxazole-trimethoprim 800-160 mg tablet 1 tab PO BID 7 Days Qty: 14 0RF Referrals: [facility] [Primary Care Provider] -
[2022-09-21] MEDS: Lidocaine 4 % Patch ADH..PATCH 1 PATCH TRANSDERMA (01:55)
[2022-09-21 01:57] LABS: Appearance Urine Clear; Color Urine Yellow; Glucose Urine UA Negative (Negative); Leukocyte Esterase Urine Negative (Negative); Nitrite Urine Negative (Negative); PH 5.5 (5.0-9.0); Specific Gravity - Urine <= 1.005 (1.005-1.025); Urine Blood Negative (Negative); Urine Ketones Negative (Negative); Urine Protein Negative (Neg-Trace)
[2022-09-21 02:00] VITALS: BP 112/76; PULSE 75; RESP 16; TEMP 36.8; O2SAT 97
== END 2022-09-21 02:24 | disposition home or self-care (01) ==
PROVIDERS: Emergency Provider Student in an Organized Health Care Education/Training Program
DX: M62.830 Muscle spasm of back (principal); M54.9 Dorsalgia, unspecified
CPT/HCPCS: 81003; 99283

== ENCOUNTER 2022-10-31 01:45 | Emergency (ER) | payer OTHER, SELFPAY ==
[2022-10-31 01:57] VITALS: BP 110/81; PULSE 82; RESP 20; TEMP 36.4; O2SAT 97; BMI 34.3
[2022-10-31 02:16] LABS: Hematocrit 46.7 % (42.0-52.0); Hemoglobin 15.3 g/dl (14.0-18.0); Mean Corpuscular HGB Conc 32.8 g/dl (31.0-36.0); Mean Corpuscular Hemoglobin 28.9 pg (27.0-33.0); Mean Corpuscular Volume 88.1 fL (80.0-98.0); Mean Platelet Volume 10.8 fL (9.4-12.4); Platelet Count 316 X10*3/uL (160-400); Red Cell Distribution Width 12.6 % (11.0-16.0); White Blood Count 8.5 X10*3/uL (4.8-10.8)
[2022-10-31 02:26] VITALS: BP 115/78; PULSE 84; RESP 16; TEMP 36.7; O2SAT 99
[2022-10-31 02:27] LABS: Appearance Urine Clear; Color Urine Yellow; Glucose Urine UA Negative (Negative); Leukocyte Esterase Urine Negative (Negative); Nitrite Urine Negative (Negative); PH 5.5 (5.0-9.0); Urine Blood Negative (Negative); Urine Ketones Negative (Negative); Urine Protein Negative (Neg-Trace)
[2022-10-31 02:32] LABS: Bacteria Urine None Seen (None Seen); Hyaline Casts Urine 0-2 /LPF (0-2); RBC Urine 0-2 /HPF (0-2); Squamous Epithelial Cell Urine 0-2 /HPF (0-2); WBC Urine 0-5 /HPF (0-5)
[2022-10-31 02:41] LABS: Alanine Aminotransferase 24 U/L (0-40); Albumin Level 4.1 g/dL (3.5-5.0); Alkaline Phosphatase 62 U/L (39-117); Anion Gap 15 (12-20); Aspartate Amino Transferase 14 U/L (5-37); Bilirubin Direct 0.2 mg/dL (0.0-0.5); Bilirubin Total 0.5 mg/dL (0.0-1.0); Blood Urea Nitrogen 21 mg/dL (9-16); Calcium 9.6 mg/dL (8.4-10.2); Carbon Dioxide 27 mmol/L (22-29); Chloride 104 mmol/L (96-108); Creatinine Clr Calc Pharmacy 75.1; Estimated Glomerular Filt Rate 58; Glucose Random 99 mg/dL (60-115); Lipase 35 U/L (8-78); Potassium 4.4 mmol/L (3.3-5.1); Sodium 142 mmol/L (135-145); Total Protein 7.2 g/dL (6.5-8.0)
--- NOTE | 2022-10-31 03:36 | ED.BACK ---
HPI - Back Pain/Injury General Chief Complaint: Back Pain/Injury Stated Complaint: lower back pain? side pain Time Seen by Provider: 10/31/22 03:23 Source: patient Mode of arrival: ambulatory Limitations: no limitations History of Present Illness HPI Narrative: 37-year-old male who presents emergency department for evaluation of left posterior thoracic chest pain. 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 He does not recall any injury or pain when he was driving. He states that this morning at 01:00 hours he developed sudden pain in his left posterior thoracic region of his back he states the pain was a constant, sharp pain which was worse with movement. The pain did not change with breathing. He denied feeling short of breath and having dyspnea on exertion. He did not take any medications prior to coming to the emergency department he states the pain was initially severe and was 9/10 but without any treatment he states the pain is now improved. The patient denied fever, chills, rhinorrhea, sore throat, cough, nausea, vomiting, diarrhea, abdominal pain, myalgias or arthralgias. Related Data Previous Rx's Medication Instructions Recorded amoxicillin 500 mg-potassium 1 tab PO BID #14 tabs 01/13/21 clavulanate 125 mg tablet (Augmentin) azithromycin 500 mg tablet 500 mg PO DAILY 5 days #5 tabs 01/18/21 valacyclovir 1 gram tablet 1,000 mg PO TID 10 days #30 tabs 01/18/21 (Valtrex) artificial tears(hypromellose) 0.5 2 drp ophthalmic (eye) Q2-4H PRN 01/20/21 % eye drops dry eye(s) #15 mL prednisone 20 mg tablet 20 mg PO .COMPLEX #18 tabs 03/19/21 sulfamethoxazole 800 1 tab PO BID 7 days #14 tabs 03/19/21 mg-trimethoprim 160 mg tablet hydroxyzine HCl 25 mg tablet 25 mg PO TID 3 days #9 tabs 03/27/21 allopurinol 100 mg tablet 50 mg PO DAILY #14 tabs 02/16/22 amoxicillin 875 mg-potassium 1 tab PO BID 7 days #14 tabs 08/15/22 clavulanate 125 mg tablet cyclobenzaprine 5 mg tablet 5 mg PO BEDTIME PRN muscle spasm 09/21/22 #4 tabs Allergies Allergy/AdvReac Type Severity Reaction Status Date / Time No Known Allergies Allergy Verified 09/21/22 01:18 [No Known Allergies*] Review of Systems Review of Systems: Yes all other systems are reviewed and are negative [facility] Past Medical History [facility] Narrative: Past medical history: None. Past surgical history: None. 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 He denies tobacco use. He occasionally drinks alcohol. He denies drug use. Medical History No known health problems Surgical History No history of previous surgery Social History Social History Alcohol intake: unknown Patient Tobacco Use Status: Never used Tobacco Advance Directives: No Physical Exam Vital Signs: Vital Signs: Last Vital Signs Temp 98.1 F 10/31/22 02:26 Pulse 84 10/31/22 02:26 Resp 16 10/31/22 02:26 BP 115/78 10/31/22 02:26 Pulse Ox 99 10/31/22 02:26 O2 Del Method 10/31/22 02:26 BMI result Body Mass Index 34.3 Const: General: cooperative and no acute distress Orientation/consciousness: oriented to person and oriented to place Limitations: no limitations HEENT: Head: Yes normal to inspection, Yes normocephalic and Yes atraumatic Ears: external ears normal General nose exam: Normal external nose present Face and sinus: Yes normal facial exam Mouth: Normal oral and palatal mucosa present Throat: Yes posterior oropharynx normal Eyes: General: appearance normal, both eyes and all related structures Pupils: Equal, round and reactive pupils present Neck: Neck: Yes normal visual inspection, Yes no lymphadenopathy, Yes trachea midline and Yes supple Chest: Chest palpation & inspection: normal inspection of the chest and normal palpation of entire chest wall Resp: Effort & Inspection: normal respiratory effort and able to speak in complete sentences Auscultation: clear to auscultation bilaterally Cardio: Rate: regular rate Rhythm: regular rhythm Heart sounds: S1 normal heart sound present, S2 normal heart sound present and no murmurs GI: Inspection: Yes normal to inspection Palpation (GI): Soft to palpation, nontender and no guarding Auscultation: normal bowel sounds Back/Spine/Pelvis: Other: Patient has mild to moderate tenderness with palpation of his posterior thoracic paraspinal muscles, there is no point tenderness palpation over his vertebrae Neuro: General: oriented to person and oriented to place Cranial nerves: Yes CN's II-XII intact bilaterally and Yes Equal, round and reactive pupils present Cognition (Neuro): normal cognition Motor exam (neuro): 5/5 motor strength present throughout Extrem: General: Yes normal to inspection Psych: Appearance: grossly normal Speech and movement: Normal speech and movement present Affect: normal affect Attitude: cooperative Medical Decision Making Medical Decision Making [facility] Narrative: 37-year-old male who presents emergency department for evaluation of sudden onset left posterior thoracic pain. Patient is a tire trucker any drove 9 hours [place]. Patient's pain was initially a 9/10 and then improved without treatment. Examination did reveal a normal vital signs. He does have tenderness palpation of his thoracic paraspinal muscles. Patient has no shortness of breath, dyspnea on exertion or pleuritic component to his back pain. Patient's laboratory evaluation included a CBC, CMP and urinalysis which were normal. Patient's presentation is consistent with musculoskeletal pain. He was treated with ibuprofen 400 mg orally and Tylenol 1000 mg orally. He was given printed and verbal instructions and discharged home. Differential Diagnosis Differential diagnosis includes was not limited to musculoskeletal pain, vertebral disc disease, pulmonary embolism, pneumonia Lab Data [facility] Lab Attestation statement: I reviewed the patient's lab results. Please see [facility] from my discussion 10/31/22 02:10 10/31/22 02:10 Labs: Lab Results 10/31/22 10/31/22 10/31/22 Range/Units 02:10 02:10 02:18 WBC 8.5 (4.8-10.8) X10*3/uL RBC 5.30 (4.60-5.80) X10*6/uL Hgb 15.3 (14.0-18.0) g/dl Hct 46.7 (42.0-52.0) % MCV 88.1 (80.0-98.0) fL MCH 28.9 (27.0-33.0) pg MCHC 32.8 (31.0-36.0) g/dl RDW 12.6 (11.0-16.0) % Plt Count 316 (160-400) X10*3/uL MPV 10.8 (9.4-12.4) fL Absolute Nucleated RBC 0.000 (0.0-0.012) X10*3/uL Nucleated RBC % (auto) 0.0 (0.0-0.2) /100WBC Sodium 142 (135-145) mmol/L Potassium 4.4 (3.3-5.1) mmol/L Chloride 104 (96-108) mmol/L Carbon Dioxide 27 (22-29) mmol/L Anion Gap 15 (12-20) BUN 21 H (9-16) mg/dL Creatinine 1.38 (0.5-1.4) mg/dL Estim Creat Clear Calc 75.1 Estimated GFR 58 Random Glucose 99 (60-115) mg/dL Calcium 9.6 (8.4-10.2) mg/dL Total Bilirubin 0.5 (0.0-1.0) mg/dL Direct Bilirubin 0.2 (0.0-0.5) mg/dL AST 14 (5-37) U/L ALT 24 (0-40) U/L Alkaline Phosphatase 62 (39-117) U/L Total Protein 7.2 (6.5-8.0) g/dL Albumin 4.1 (3.5-5.0) g/dL Lipase 35 (8-78) U/L Urine Color Yellow Urine Appearance Clear Urine pH 5.5 (5.0-9.0) Ur Specific [place] 1.020 (1.005-1.025) Urine Protein Negative (Neg-Trace) mg/dL Urine Glucose (UA) Negative (Negative) mg/dL Urine Ketones Negative (Negative) mg/dL Urine Blood Negative (Negative) Urine Nitrite Negative (Negative) Ur Leukocyte Esterase Negative (Negative) Urine RBC 0-2 (0-2) /HPF Urine WBC 0-5 (0-5) /HPF Ur Squamous Epith Cells 0-2 (0-2) /HPF Urine Bacteria None Seen (None Seen) Hyaline Casts 0-2 (0-2) /LPF Discharge Plan Discharge Clinical Impression: Acute left-sided thoracic back pain Patient Disposition: Home, Self-Care Instructions: Back Pain (ED) Additional Instructions: Your blood work was normal. Your urine test was negative for blood which is reassuring At this time, I suspect that the pain in your back is secondary to muscle pain. Take ibuprofen 200 mg pills, 2 pills every 6 hours as needed for pain. Take Tylenol (acetaminophen) 500 mg pills, 2 pills every 6 hours as needed for pain. Follow-up with your doctor in 2 days. Please return to the emergency department if your symptoms get worse or if you develop any symptoms that are concerning to you. Prescriptions: No Action amoxicillin-pot clavulanate [Augmentin] 500-125 mg tablet 1 tab PO BID Qty: 14 0RF artificial tears(hypromellose) 0.5 % drops 2 drp ophthalmic (eye) Q2-4H PRN (Reason: dry eye(s)) Qty: 15 0RF hydroxyzine HCl 25 mg tablet 25 mg PO TID 3 Days Qty: 9 0RF amoxicillin-pot clavulanate 875-125 mg tablet 1 tab PO BID 7 Days Qty: 14 0RF allopurinol 100 mg tablet 50 mg PO DAILY Qty: 14 0RF cyclobenzaprine 5 mg tablet 5 mg PO BEDTIME PRN (Reason: muscle spasm) Qty: 4 0RF azithromycin 500 mg tablet 500 mg PO DAILY 5 Days Qty: 5 0RF valacyclovir [Valtrex] 1 gram tablet 1,000 mg PO TID 10 Days Qty: 30 0RF prednisone 20 mg tablet 20 mg PO .COMPLEX Qty: 18 0RF Rx Instructions: 20 mg PO 3 p.o. daily for 3 days followed by 2 p.o. daily for 3 days followed by 1 p.o. daily for 3 days; sulfamethoxazole-trimethoprim 800-160 mg tablet 1 tab PO BID 7 Days Qty: 14 0RF
[2022-10-31] MEDS: Acetaminophen 325 MG TABLET 975 MG PO (03:49)
[2022-10-31] MEDS: Ibuprofen 400 MG TABLET PO (03:50)
== END 2022-10-31 04:01 | disposition home or self-care (01) ==
PROVIDERS: Emergency Provider Emergency Medicine Emergency Medical Services
DX: M54.6 Pain in thoracic spine (principal)
CPT/HCPCS: 36415; 80053; 81001; 82248; 83690; 85027; 99283

== ENCOUNTER 2022-12-14 03:10 | Emergency (ER) | payer OTHER, SELFPAY ==
[2022-12-14 03:12] VITALS: BP 150/72; PULSE 100; RESP 18; TEMP 36.4; O2SAT 98; BMI 26.6
--- NOTE | 2022-12-14 03:31 | ED_ITS ---
HPI - Extremity Injury (Lower) General Chief Complaint: Extremity Injury, Lower Stated Complaint: Gout Flare Up Time Seen by Provider: 12/14/22 03:21 Source: patient Mode of arrival: ambulatory Limitations: no limitations History of Present Illness HPI Narrative: Patient comes to the emergency room complaining of a gout flare. Patient states that he has had gout many times and this is very similar. Patient has gout this time in the medial aspect of the ankle on the left. Patient states that he ran out of allopurinol recently. Patient denies fever chills, no trauma to the area. Related Data Previous Rx's Medication Instructions Recorded amoxicillin 500 mg-potassium 1 tab PO BID #14 tabs 01/13/21 clavulanate 125 mg tablet (Augmentin) azithromycin 500 mg tablet 500 mg PO DAILY 5 days #5 tabs 01/18/21 valacyclovir 1 gram tablet 1,000 mg PO TID 10 days #30 tabs 01/18/21 (Valtrex) artificial tears(hypromellose) 0.5 2 drp ophthalmic (eye) Q2-4H PRN 01/20/21 % eye drops dry eye(s) #15 mL prednisone 20 mg tablet 20 mg PO .COMPLEX #18 tabs 03/19/21 sulfamethoxazole 800 1 tab PO BID 7 days #14 tabs 03/19/21 mg-trimethoprim 160 mg tablet hydroxyzine HCl 25 mg tablet 25 mg PO TID 3 days #9 tabs 03/27/21 allopurinol 100 mg tablet 50 mg PO DAILY #14 tabs 02/16/22 amoxicillin 875 mg-potassium 1 tab PO BID 7 days #14 tabs 08/15/22 clavulanate 125 mg tablet cyclobenzaprine 5 mg tablet 5 mg PO BEDTIME PRN muscle spasm 09/21/22 #4 tabs allopurinol 100 mg tablet 100 mg PO DAILY #14 tabs 12/14/22 ibuprofen 600 mg tablet 600 mg PO TID PRN fever or pain 12/14/22 #20 tabs prednisone 50 mg tablet 50 mg PO DAILY #5 tabs 12/14/22 Allergies Allergy/AdvReac Type Severity Reaction Status Date / Time No Known Allergies Allergy Verified 09/21/22 01:18 [No Known Allergies*] Review of Systems Review of Systems: Constitutional : No Weight loss, No Fever, No Chills, No Night Sweats, No Fatigue, No Malaise ENT/Mouth : No Hearing loss, No Ear Pain, No Nasal Congestion, No Sinus Pain, No Hoarseness, No sore throat, No Rhinorrhea, No Swallowing Difficulty Eyes: No Eye Pain, No Swelling, No Redness, No Foreign Body, No Discharge, No Vision Changes Cardiovascular : No Chest Pain, No SOB, No Dyspnea on Exertion, No Orthopnea, No Edema, No Palpitations Respiratory : No Cough, No Sputum, No Wheezing, No Smoke Exposure, No Dyspnea Gastrointestinal : No Nausea, No Vomiting, No Diarrhea, No Constipation, No abdominal Pain, No Hematochezia, No Melena Genitourinary : no irregular bleeding, No Dysuria, No Urinary Frequency, No Hematuria, No Urinary Incontinence, No Urgency, No Flank Pain, No Urinary Flow Changes, No Hesitancy Musculoskeletal : Complaining of ankle pain on the medial aspect on the left,, No Myalgias, No Joint Swelling Skin : No Skin Lesions, No rash Neuro : No Weakness, No Numbness, No Paresthesias, No Loss of Consciousness, No Dizziness, No Headache Psych : No Anxiety/Panic, No Depression, No SI/HI/AH/VH, No Social Issues, Heme/Lymph: No Bruising, No Bleeding,No Lymphadenopathy Endocrine : No Polyuria, No Polydipsia, No Temperature Intolerance [facility] Past Medical History Medical History (Updated 12/14/22 @ 03:35 by Tomeka Sweet MD) Gout Surgical History No history of previous surgery Social History Social History Alcohol intake: unknown Patient Tobacco Use Status: Never used Tobacco Physical Exam Vital Signs: Vital Signs: Last Vital Signs Temp 97.5 F 12/14/22 03:12 Pulse 100 12/14/22 03:12 Resp 18 12/14/22 03:12 BP 150/72 H 12/14/22 03:12 Pulse Ox 98 12/14/22 03:12 O2 Del Method Room Air 12/14/22 03:12 BMI result Body Mass Index 26.6 Const: Other: Appearance: Alert. Oriented X3. No acute distress. Eyes: Pupils equal, round and reactive to light. ENT: Pharynx normal. Neck: Normal inspection. Neck supple. No lymph nodes noted. No crepitus CVS: Normal heart rate and rhythm. Pulses normal. Normal S1 and S2 Respiratory: No respiratory distress. Breath sounds normal. No Wheezing. No rales Abdomen: Soft and nontender. No rigidity. No distention. Skin: Skin warm and dry. Normal skin color. Normal skin turgor. Extremities: No lower extremity edema. Left ankle medial aspect tender to touch, red. Patient able to flex and extend the ankle, lateral malleolus not infected. Neuro: Oriented X 3. No motor deficit. No sensory deficit. Moving all extremities. No slurred speech. CN 2 through 12 grossly intact Psych: calm, cooperative, normal affect Medical Decision Making Medical Decision Making MDM Narrative: -patient's physical exam is consistent with gout flare. -patient states he took ibuprofen prior to coming here, declined pain medication at this time. -septic joint is not suspected, no fever chills, patient able to move the ankle Discharge Plan Discharge Clinical Impression: Gout attack Patient Disposition: Home, Self-Care Instructions: Gout (ED) Additional Instructions: Please follow-up with your primary care physician tomorrow. If you have any worsening or new symptoms, please return to the emergency room or call 911 Prescriptions: New ibuprofen 600 mg tablet 600 mg PO TID PRN (Reason: fever or pain) Qty: 20 0RF prednisone 50 mg tablet 50 mg PO DAILY Qty: 5 0RF allopurinol 100 mg tablet 100 mg PO DAILY Qty: 14 0RF No Action amoxicillin-pot clavulanate [Augmentin] 500-125 mg tablet 1 tab PO BID Qty: 14 0RF artificial tears(hypromellose) 0.5 % drops 2 drp ophthalmic (eye) Q2-4H PRN (Reason: dry eye(s)) Qty: 15 0RF hydroxyzine HCl 25 mg tablet 25 mg PO TID 3 Days Qty: 9 0RF amoxicillin-pot clavulanate 875-125 mg tablet 1 tab PO BID 7 Days Qty: 14 0RF allopurinol 100 mg tablet 50 mg PO DAILY Qty: 14 0RF cyclobenzaprine 5 mg tablet 5 mg PO BEDTIME PRN (Reason: muscle spasm) Qty: 4 0RF azithromycin 500 mg tablet 500 mg PO DAILY 5 Days Qty: 5 0RF valacyclovir [Valtrex] 1 gram tablet 1,000 mg PO TID 10 Days Qty: 30 0RF prednisone 20 mg tablet 20 mg PO .COMPLEX Qty: 18 0RF Rx Instructions: 20 mg PO 3 p.o. daily for 3 days followed by 2 p.o. daily for 3 days followed by 1 p.o. daily for 3 days; sulfamethoxazole-trimethoprim 800-160 mg tablet 1 tab PO BID 7 Days Qty: 14 0RF
[2022-12-14 03:45] VITALS: BP 146/93; PULSE 94; RESP 16; TEMP 37.2; O2SAT 97
== END 2022-12-14 03:45 | disposition home or self-care (01) ==
PROVIDERS: Emergency Provider Emergency Medicine
DX: M10.072 Idiopathic gout, left ankle and foot (principal)
CPT/HCPCS: 99283

== ENCOUNTER 2022-12-30 23:30 | Emergency (ER) | payer OTHER, SELFPAY ==
[2022-12-30 23:56] VITALS: BP 123/79; PULSE 85; RESP 18; TEMP 36.5; O2SAT 100; BMI 33.4
--- NOTE | 2022-12-31 01:46 | ED.EXTPRO ---
HPI - Extremity Problem General Chief complaint: Extremity Problem Stated complaint: Gout pain Time Seen by Provider: 12/31/22 01:45 Source: patient Mode of arrival: ambulatory Limitations: no limitations History of Present Illness HPI Narrative: Patient with history of recurrent gouty attacks was seen here on 12/14 was prescribed prednisone comes back again as pain is coming back in the left ankle with swelling similar to that in the past no fever patient not on any medication chronically for gout Related Data Previous Rx's Medication Instructions Recorded amoxicillin 500 mg-potassium 1 tab PO BID #14 tabs 01/13/21 clavulanate 125 mg tablet (Augmentin) azithromycin 500 mg tablet 500 mg PO DAILY 5 days #5 tabs 01/18/21 valacyclovir 1 gram tablet 1,000 mg PO TID 10 days #30 tabs 01/18/21 (Valtrex) artificial tears(hypromellose) 0.5 2 drp ophthalmic (eye) Q2-4H PRN 01/20/21 % eye drops dry eye(s) #15 mL prednisone 20 mg tablet 20 mg PO .COMPLEX #18 tabs 03/19/21 sulfamethoxazole 800 1 tab PO BID 7 days #14 tabs 03/19/21 mg-trimethoprim 160 mg tablet hydroxyzine HCl 25 mg tablet 25 mg PO TID 3 days #9 tabs 03/27/21 allopurinol 100 mg tablet 50 mg PO DAILY #14 tabs 02/16/22 amoxicillin 875 mg-potassium 1 tab PO BID 7 days #14 tabs 08/15/22 clavulanate 125 mg tablet cyclobenzaprine 5 mg tablet 5 mg PO BEDTIME PRN muscle spasm 09/21/22 #4 tabs allopurinol 100 mg tablet 100 mg PO DAILY #14 tabs 12/14/22 ibuprofen 600 mg tablet 600 mg PO TID PRN fever or pain 12/14/22 #20 tabs prednisone 50 mg tablet 50 mg PO DAILY #5 tabs 12/14/22 allopurinol 200 mg tablet 200 mg PO DAILY #30 tabs 12/31/22 colchicine 0.6 mg tablet 0.6 mg PO BID #30 tabs 12/31/22 indomethacin 50 mg capsule 50 mg PO QID #30 caps 12/31/22 prednisone 20 mg tablet 40 mg PO DAILY #14 tabs 12/31/22 Allergies Allergy/AdvReac Type Severity Reaction Status Date / Time No Known Allergies Allergy Verified 09/21/22 01:18 [No Known Allergies*] Review of Systems Review of Systems: Yes all other systems are reviewed and are negative [facility] Past Medical History Medical History Gout Surgical History No history of previous surgery Social History Social History Alcohol intake: unknown Patient Tobacco Use Status: Never used Tobacco Advance Directives: No Advance Directives Information Provided: Yes Physical Exam Vital Signs: Vital Signs: Last Vital Signs Temp 97.7 F 12/30/22 23:56 Pulse 85 12/30/22 23:56 Resp 18 12/30/22 23:56 BP 123/79 12/30/22 23:56 Pulse Ox 100 12/30/22 23:56 O2 Del Method Room Air 12/30/22 23:56 BMI result Body Mass Index 33.4 Appearance: Alert. Oriented X3. No acute distress. Neck: Normal inspection. Neck supple. CVS: Normal heart rate and rhythm. Pulses normal. Respiratory: No respiratory distress. Equal air entry bilateral, Abdomen: Soft and nontender. Bowel sounds are present, Skin: Skin warm and dry. Normal skin color. Normal skin turgor. Extremities: No lower extremity edema. No calf tenderness swelling of the left ankle no deformity neurovascular intact Neuro: Oriented X 3. Medications Administered Discontinued Medications Generic Name Dose Route Start Last Admin Trade Name Freq PRN Reason Stop Dose Admin Colchicine 1.2 mg 12/31/22 01:57 12/31/22 02:26 Colchicine 0.6 Mg Tablet PO 12/31/22 01:58 1.2 mg ONCE ONE Administration Dexamethasone 10 mg 12/31/22 01:57 12/31/22 02:26 Dexamethasone 2 Mg Tablet PO 12/31/22 01:58 10 mg ONCE ONE Administration Naproxen 500 mg 12/31/22 01:57 12/31/22 02:26 Naproxen 500 Mg Tablet PO 12/31/22 01:58 500 mg ONCE ONE Administration Medical Decision Making Medical Decision Making MDM Narrative: Patient was gouty arthritis with recurrent attacks in the past discharge patient on prednisone Indocin colchicine and allopurinol advised to follow-up with hand booked folder and stitcher Discharge Plan Discharge Clinical Impression: Gout Patient Disposition: Home, Self-Care Instructions: Gout (ED) Additional Instructions: Take medication as prescribed Rest use crutches for ambulation and follow up with rheumatology Prescriptions: New allopurinol 200 mg tablet 200 mg PO DAILY Qty: 30 0RF colchicine 0.6 mg tablet 0.6 mg PO BID Qty: 30 0RF indomethacin 50 mg capsule 50 mg PO QID Qty: 30 0RF Rx Instructions: administer with food or milk prednisone 20 mg tablet 40 mg PO DAILY Qty: 14 0RF No Action amoxicillin-pot clavulanate [Augmentin] 500-125 mg tablet 1 tab PO BID Qty: 14 0RF artificial tears(hypromellose) 0.5 % drops 2 drp ophthalmic (eye) Q2-4H PRN (Reason: dry eye(s)) Qty: 15 0RF hydroxyzine HCl 25 mg tablet 25 mg PO TID 3 Days Qty: 9 0RF amoxicillin-pot clavulanate 875-125 mg tablet 1 tab PO BID 7 Days Qty: 14 0RF allopurinol 100 mg tablet 50 mg PO DAILY Qty: 14 0RF cyclobenzaprine 5 mg tablet 5 mg PO BEDTIME PRN (Reason: muscle spasm) Qty: 4 0RF ibuprofen 600 mg tablet 600 mg PO TID PRN (Reason: fever or pain) Qty: 20 0RF prednisone 50 mg tablet 50 mg PO DAILY Qty: 5 0RF allopurinol 100 mg tablet 100 mg PO DAILY Qty: 14 0RF azithromycin 500 mg tablet 500 mg PO DAILY 5 Days Qty: 5 0RF valacyclovir [Valtrex] 1 gram tablet 1,000 mg PO TID 10 Days Qty: 30 0RF prednisone 20 mg tablet 20 mg PO .COMPLEX Qty: 18 0RF Rx Instructions: 20 mg PO 3 p.o. daily for 3 days followed by 2 p.o. daily for 3 days followed by 1 p.o. daily for 3 days; sulfamethoxazole-trimethoprim 800-160 mg tablet 1 tab PO BID 7 Days Qty: 14 0RF Referrals: Mason Nick MD [Physician] - Interventions: ED Discharge Assessment Last Done: 12/31/22 02:16 Discharge Date/Time: 12/31/22 02:29
[2022-12-31] MEDS: NaPROXEN 500 MG TABLET PO (02:26)
[2022-12-31] MEDS: dexAMETHasone 2 MG TABLET 10 MG PO (02:26)
[2022-12-31] MEDS: Colchicine 0.6 MG TABLET 1.2 MG PO (02:26)
== END 2022-12-31 02:29 | disposition home or self-care (01) ==
PROVIDERS: Emergency Provider Internal Medicine; PCP Internal Medicine
DX: M10.9 Gout, unspecified (principal); M25.572 Pain in left ankle and joints of left foot; Z79.899 Other long term (current) drug therapy
CPT/HCPCS: 99283; J8540

== ENCOUNTER 2023-03-09 12:32 | Emergency (ER) | payer OTHER, SELFPAY ==
[2023-03-09 12:48] VITALS: BP 129/77; PULSE 85; RESP 18; TEMP 36.7; O2SAT 97; BMI 32.6
--- NOTE | 2023-03-09 12:48 | ED.MALEGU ---
HPI - Male Genitourinary General Chief complaint: Urogenital-Male Stated complaint: check std, uti Time Seen by Provider: 03/09/23 14:24 Source: patient Mode of arrival: ambulatory Limitations: no limitations History of Present Illness HPI Narrative: 37 yold male presents to the ED for evaluation for STI and interitent testicular pain for 2 months. patient states unprotective sex with female 2 months ago and she was only positive for UTI and she was negative for STDs. Patient states presently no testicular pain. Related Data Previous Rx's Medication Instructions Recorded amoxicillin 500 mg-potassium 1 tab PO BID #14 tabs 01/13/21 clavulanate 125 mg tablet (Augmentin) azithromycin 500 mg tablet 500 mg PO DAILY 5 days #5 tabs 01/18/21 valacyclovir 1 gram tablet 1,000 mg PO TID 10 days #30 tabs 01/18/21 (Valtrex) artificial tears(hypromellose) 0.5 2 drp ophthalmic (eye) Q2-4H PRN 01/20/21 % eye drops dry eye(s) #15 mL prednisone 20 mg tablet 20 mg PO .COMPLEX #18 tabs 03/19/21 sulfamethoxazole 800 1 tab PO BID 7 days #14 tabs 03/19/21 mg-trimethoprim 160 mg tablet hydroxyzine HCl 25 mg tablet 25 mg PO TID 3 days #9 tabs 03/27/21 allopurinol 100 mg tablet 50 mg PO DAILY #14 tabs 02/16/22 amoxicillin 875 mg-potassium 1 tab PO BID 7 days #14 tabs 08/15/22 clavulanate 125 mg tablet cyclobenzaprine 5 mg tablet 5 mg PO BEDTIME PRN muscle spasm 09/21/22 #4 tabs allopurinol 100 mg tablet 100 mg PO DAILY #14 tabs 12/14/22 ibuprofen 600 mg tablet 600 mg PO TID PRN fever or pain 12/14/22 #20 tabs prednisone 50 mg tablet 50 mg PO DAILY #5 tabs 12/14/22 allopurinol 200 mg tablet 200 mg PO DAILY #30 tabs 12/31/22 colchicine 0.6 mg tablet 0.6 mg PO BID #30 tabs 12/31/22 indomethacin 50 mg capsule 50 mg PO QID #30 caps 12/31/22 prednisone 20 mg tablet 40 mg PO DAILY #14 tabs 12/31/22 naproxen 500 mg tablet 500 mg PO BID PRN pain 7 days #14 03/09/23 tabs Allergies Allergy/AdvReac Type Severity Reaction Status Date / Time No Known Allergies Allergy Verified 09/21/22 01:18 [No Known Allergies*] Review of Systems Review of Systems: intermittent left testicuarl pain. STI evaluation PMFSH Past Medical History Medical History Gout Surgical History No history of previous surgery Social History Social History Alcohol intake: unknown Patient Tobacco Use Status: Never used Tobacco Advance Directives: No Advance Directives Information Provided: No Physical Exam Vital Signs: Vital Signs: Last Vital Signs Temp 98.7 F 03/09/23 16:39 Pulse 77 03/09/23 16:39 Resp 18 03/09/23 16:39 BP 125/75 03/09/23 16:39 Pulse Ox 99 03/09/23 16:39 O2 Del Method Room Air 03/09/23 16:39 BMI result Body Mass Index 32.6 Const: General: cooperative, healthy appearing, comfortable, no acute distress, well developed, alert, awake and Physically active Orientation/consciousness: oriented to person, oriented to place, oriented to time and patient oriented x3 HEENT: Head: Yes normal to inspection, Yes No palpable skull fracture present, Yes normocephalic, Yes atraumatic and No abrasion Eyes: General: appearance normal, both eyes and all related structures Neck: Neck: Yes normal visual inspection, Yes full ROM, Yes no lymphadenopathy, Yes no meningeal signs, Yes trachea midline, Yes supple, No anterior neck swelling and No tender Chest: Chest palpation & inspection: normal inspection of the chest and normal palpation of entire chest wall Resp: Effort & Inspection: normal respiratory effort and able to speak in complete sentences Auscultation: clear to auscultation bilaterally Cardio: Jugular venous distension: no JVD Heart sounds: S1 normal heart sound present and S2 normal heart sound present GI: Inspection: Yes normal to inspection Palpation (GI): Soft to palpation, not firm, nontender, no guarding and not rigid : Other: exam normal General: No CVA tenderness and Yes no CVA tenderness Male General Exam: Yes normal external exam Penis: normal penis and uncircumcised Meatus: meatus normal Scrotum: scrotum normal Testes: Testes normal Back/Spine/Pelvis: Back: no CVA tenderness, No CVA tenderness and No back tenderness Skin: General skin exam: no rashes or lesions noted and elasticity normal Neuro: General: oriented to person, oriented to place, oriented to time, patient oriented x3, gait normal, tone normal, moves all extremities, Normal light touch and pain sensation, no meningeal signs, no focal motor deficits, CN's II-XI intact bilaterally and normal sensation to monofilament Extrem: General: Yes normal to inspection, Yes full ROM and Yes capillary refill normal Psych: Appearance: grossly normal, well kempt and not disheveled Course Course Course Narrative: This is an RME: Additional HPI, ROS, PE not included below will be deferred to primary provider. Patient is a 37-year-old male presents emergency department for evaluation of dysuria and foul smelling urine without penile discharge or lesions. Reports testicular pain, atraumatic, without swelling. Denies fevers, chills, nausea, vomiting. Requesting testing for STI and UTI. Reports a recent unprotected intercourse with an individual who had known UTI but no reported STI. Plan: CT/NG and urinalysis Medical Decision Making Medical Decision Making MDM Narrative: 37-year-old male presents to ED for intermittent left testicular pain and evaluation for STI. Patient denies any penile discharge or penile lesions. Patient states no flank pain, abdominal pain, nausea, or vomiting. Patient refuses testicular ultrasound. Explain risk of torsion and epididymitis. Patient playing risk of disability decreased quality of life, loss of testicle, worsening infection, and . Patient still signed against medical advice Differential Diagnosis Differential Diagnoses: The differential diagnosis associated with the presentation includes Lab Data Labs: Lab Results 03/09/23 03/09/23 Range/Units 12:59 12:59 Urine Color Yellow Urine Appearance Clear Urine pH 5.5 (5.0-9.0) Ur Specific [place] 1.020 (1.005-1.025) Urine Protein Negative (Neg-Trace) mg/dL Urine Glucose (UA) Negative (Negative) mg/dL Urine Ketones Negative (Negative) mg/dL Urine Blood Negative (Negative) Urine Nitrite Negative (Negative) Ur Leukocyte Esterase Negative (Negative) Chlam trachomat DNA PCR NOT DETECTED (Not Detect.) N.gonorrhoeae DNA (PCR) NOT DETECTED (Not Detect.) Prescription Management I considered prescription management with: Pain Medication Discharge Plan Discharge Clinical Impression: Pain in testicle Patient Disposition: Left Against Medical Advice Instructions: Testicle Pain (ED), Scrotal Pain (ED) Additional Instructions: return to the ED immediately for testicular pain, testicular swelling, penile discharge, penile lesions, abdominal pain, nausea, vomiting, flank pain, fever, chills, or any other concerning symptoms. Please follow-up with the primary care provider. Prescriptions: New naproxen 500 mg tablet 500 mg PO BID PRN (Reason: pain) 7 Days Qty: 14 0RF No Action amoxicillin-pot clavulanate [Augmentin] 500-125 mg tablet 1 tab PO BID Qty: 14 0RF artificial tears(hypromellose) 0.5 % drops 2 drp ophthalmic (eye) Q2-4H PRN (Reason: dry eye(s)) Qty: 15 0RF hydroxyzine HCl 25 mg tablet 25 mg PO TID 3 Days Qty: 9 0RF amoxicillin-pot clavulanate 875-125 mg tablet 1 tab PO BID 7 Days Qty: 14 0RF allopurinol 100 mg tablet 50 mg PO DAILY Qty: 14 0RF cyclobenzaprine 5 mg tablet 5 mg PO BEDTIME PRN (Reason: muscle spasm) Qty: 4 0RF allopurinol 200 mg tablet 200 mg PO DAILY Qty: 30 0RF colchicine 0.6 mg tablet 0.6 mg PO BID Qty: 30 0RF indomethacin 50 mg capsule 50 mg PO QID Qty: 30 0RF Rx Instructions: administer with food or milk prednisone 20 mg tablet 40 mg PO DAILY Qty: 14 0RF ibuprofen 600 mg tablet 600 mg PO TID PRN (Reason: fever or pain) Qty: 20 0RF prednisone 50 mg tablet 50 mg PO DAILY Qty: 5 0RF allopurinol 100 mg tablet 100 mg PO DAILY Qty: 14 0RF azithromycin 500 mg tablet 500 mg PO DAILY 5 Days Qty: 5 0RF valacyclovir [Valtrex] 1 gram tablet 1,000 mg PO TID 10 Days Qty: 30 0RF prednisone 20 mg tablet 20 mg PO .COMPLEX Qty: 18 0RF Rx Instructions: 20 mg PO 3 p.o. daily for 3 days followed by 2 p.o. daily for 3 days followed by 1 p.o. daily for 3 days; sulfamethoxazole-trimethoprim 800-160 mg tablet 1 tab PO BID 7 Days Qty: 14 0RF Stand Alone Forms: Against Medical Advice Interventions: ED Discharge Assessment Last Done: 03/09/23 18:03 Discharge Date/Time: 03/09/23 18:05 Print Language: Somali
[2023-03-09 13:07] LABS: Appearance Urine Clear; Color Urine Yellow; Glucose Urine UA Negative (Negative); Leukocyte Esterase Urine Negative (Negative); Nitrite Urine Negative (Negative); PH 5.5 (5.0-9.0); Urine Blood Negative (Negative); Urine Ketones Negative (Negative); Urine Protein Negative (Neg-Trace)
[2023-03-09 15:05] LABS: CT PCR NOT DETECTED (Not Detect.); NG PCR NOT DETECTED (Not Detect.)
[2023-03-09 16:39] VITALS: BP 125/75; PULSE 77; RESP 18; TEMP 37.1; O2SAT 99
== END 2023-03-09 18:05 | disposition left against medical advice (07) ==
PROVIDERS: Nurse Practitioner Family; Emergency Provider Emergency Medicine; PCP Internal Medicine
DX: N50.812 Left testicular pain (principal); Z20.2 Contact with and (suspected) exposure to infections with a predominantly sexual mode of transmission
CPT/HCPCS: 0353U; 81003; 99283

== ENCOUNTER → 2023-07-14 10:01 | Outpatient (BNVA) | payer SELFPAY | PROVIDERS: PCP Internal Medicine; Visit Provider Physician Assistant Medical | DX: Z02.79 Encounter for issue of other medical certificate (principal) ==

== ENCOUNTER 2023-08-22 01:21 | Emergency (ER) | payer OTHER, SELFPAY ==
[2023-08-22 01:35] VITALS: BP 130/85; PULSE 113; RESP 20; TEMP 36.4; O2SAT 98; BMI 34.3
[2023-08-22 03:55] VITALS: BP 127/82; PULSE 100; RESP 18; TEMP 37.2; O2SAT 98
--- NOTE | 2023-08-22 05:57 | ED.URI ---
HPI - URI/Sore Throat General Chief Complaint: Upper Respiratory Symptoms Stated Complaint: sinus infection Time Seen by Provider: 08/22/23 05:37 Source: patient Mode of arrival: ambulatory Limitations: no limitations History of Present Illness HPI Narrative: Patient comes emergency room complaining of cough, bilateral ear pain worse on the right. Patient states that about a week ago he had a URI, then started feeling better. Patient states that he was nearly back to baseline but yesterday he started feeling sick again, generalized malaise, coughing. Related Data Previous Rx's Medication Instructions Recorded amoxicillin 500 mg-potassium 1 tab PO BID #14 tabs 01/13/21 clavulanate 125 mg tablet (Augmentin) azithromycin 500 mg tablet 500 mg PO DAILY 5 days #5 tabs 01/18/21 valacyclovir 1 gram tablet 1,000 mg PO TID 10 days #30 tabs 01/18/21 (Valtrex) artificial tears(hypromellose) 0.5 2 drp ophthalmic (eye) Q2-4H PRN 01/20/21 % eye drops dry eye(s) #15 mL prednisone 20 mg tablet 20 mg PO .COMPLEX #18 tabs 03/19/21 sulfamethoxazole 800 1 tab PO BID 7 days #14 tabs 03/19/21 mg-trimethoprim 160 mg tablet hydroxyzine HCl 25 mg tablet 25 mg PO TID 3 days #9 tabs 03/27/21 allopurinol 100 mg tablet 50 mg (1/2 x 100 mg) PO DAILY #14 02/16/22 tabs amoxicillin 875 mg-potassium 1 tab PO BID 7 days #14 tabs 08/15/22 clavulanate 125 mg tablet cyclobenzaprine 5 mg tablet 5 mg PO BEDTIME PRN muscle spasm 09/21/22 #4 tabs allopurinol 100 mg tablet 100 mg PO DAILY #14 tabs 12/14/22 ibuprofen 600 mg tablet 600 mg PO TID PRN fever or pain 12/14/22 #20 tabs prednisone 50 mg tablet 50 mg PO DAILY #5 tabs 12/14/22 allopurinol 200 mg tablet 200 mg PO DAILY #30 tabs 12/31/22 colchicine 0.6 mg tablet 0.6 mg PO BID #30 tabs 12/31/22 indomethacin 50 mg capsule 50 mg PO QID #30 caps 12/31/22 prednisone 20 mg tablet 40 mg (2 x 20 mg) PO DAILY #14 tabs 12/31/22 naproxen 500 mg tablet 500 mg PO BID PRN pain 7 days #14 03/09/23 tabs acetaminophen 500 mg tablet 500 mg PO Q6H PRN fever or pain 08/22/23 #20 tabs benzonatate 100 mg capsule 100 mg PO TID PRN cough #14 caps 08/22/23 Allergies Allergy/AdvReac Type Severity Reaction Status Date / Time No Known Allergies Allergy Verified 08/22/23 01:38 [No Known Allergies*] Review of Systems Review of Systems: Constitutional : No Weight loss, complaining of fever and chills fatigue and generalized malaise ENT/Mouth : No Hearing loss, No Ear Pain, No Nasal Congestion, No Sinus Pain, No Hoarseness, No sore throat, No Rhinorrhea, No Swallowing Difficulty complaining of bilateral ear pain Eyes: No Eye Pain, No Swelling, No Redness, No Foreign Body, No Discharge, No Vision Changes Cardiovascular : No Chest Pain, No SOB, No Dyspnea on Exertion, No Orthopnea, No Edema, No Palpitations Respiratory : Complaining of dry cough No Wheezing, No Smoke Exposure, No Dyspnea Gastrointestinal : No Nausea, No Vomiting, No Diarrhea, No Constipation, No abdominal Pain, No Hematochezia, No Melena Genitourinary : no irregular bleeding, No Dysuria, No Urinary Frequency, No Hematuria, No Urinary Incontinence, No Urgency, No Flank Pain, No Urinary Flow Changes, No Hesitancy Musculoskeletal : No joint pain, No Myalgias, No Joint Swelling Skin : No Skin Lesions, No rash Neuro : No Weakness, No Numbness, No Paresthesias, No Loss of Consciousness, No Dizziness, No Headache Psych : No Anxiety/Panic, No Depression, No SI/HI/AH/VH, No Social Issues, Heme/Lymph: No Bruising, No Bleeding,No Lymphadenopathy Endocrine : No Polyuria, No Polydipsia, No Temperature Intolerance PMFSH Past Medical History Onset Date is defined in the Problem List Problems that require an onset date and time if occurred within 24 hrs of arrival to the ED Aortic Dissection and Rupture; Neurologic impairment; Cardiopulmonary Arrest; Endotracheal Intubation; Insertion or Replacement of Mechanical Circulatory Assist Device Medical History (Updated 08/22/23 @ 06:01 by Tomeka Sweet MD) Bennett's palsy Gout Surgical History No history of previous surgery Social History Social History Alcohol intake: unknown Patient Tobacco Use Status: Never used Tobacco Advance Directives: No Advance Directives Information Provided: No Physical Exam Vital Signs: Vital Signs: Last Vital Signs Temp 98.9 F 08/22/23 03:55 Pulse 100 08/22/23 03:55 Resp 18 08/22/23 03:55 BP 127/82 08/22/23 03:55 Pulse Ox 98 08/22/23 03:55 O2 Del Method Room Air 08/22/23 03:55 BMI result Body Mass Index 34.3 Const: Other: Appearance: Alert. Oriented X3. No acute distress. Eyes: Pupils equal, round and reactive to light. ENT: Pharynx normal. Bilateral ear canals within normal limits, normal tympanic membranes Neck: Normal inspection. Neck supple. No lymph nodes noted. No crepitus CVS: Normal heart rate and rhythm. Pulses normal. Normal S1 and S2 Respiratory: No respiratory distress. Breath sounds normal. No Wheezing. No rales Abdomen: Soft and nontender. No rigidity. No distention. Skin: Skin warm and dry. Normal skin color. Normal skin turgor. Extremities: No lower extremity edema. No Lacerations. No Rash Neuro: Oriented X 3. No motor deficit. No sensory deficit. Moving all extremities. No slurred speech. CN 2 through 12 grossly intact Psych: calm, cooperative, normal affect Medications Administered Discontinued Medications Generic Name Dose Route Start Last Admin Trade Name Arthurq PRN Reason Stop Dose Admin Acetaminophen 650 mg 08/22/23 05:50 08/22/23 06:02 Acetaminophen 325 Mg Tablet PO 08/22/23 05:51 650 mg ONCE ONE Administration Medical Decision Making Medical Decision Making [facility] Narrative: -I discussed the labs with the patient, my interpretation of labs, positive for COVID. -I discussed the physical exam with the patient, patient's tympanic membranes are completely clear, no erythema, no fluid behind the membranes. -patient very concerned that he will not be getting antibiotics today. I discussed with the patient that he does not have an active infection at this time. 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 I discussed with the patient that unfortunately, Bennett's palsy can be triggered even viral infections for which antibiotics would not help -I also discussed with the patient whether he wants to start Paxlovid, since he is in the window of treatment for this new viral infection. Patient respectfully declined, would prefer to treat symptomatically only Differential Diagnosis Differential Diagnoses: The differential diagnosis associated with the presentation includes (COVID, otitis media, influenza) Lab Data MDM Lab Attestation statement: I reviewed the patient's lab results. Labs: Lab Results 08/22/23 Range/Units 01:49 Influenza Type A (PCR) NEGATIVE (Negative) Influenza Type B (PCR) NEGATIVE (Negative) RSV RNA Qual (PCR) NEGATIVE (Negative) SARS-CoV-2 RNA (RT-PCR) POSITIVE A (Negative) Discharge Plan Discharge Clinical Impression: COVID-19, Otalgia Patient Disposition: Home, Self-Care Instructions: Earache (ED), COVID-19 (Coronavirus Disease 2019) (ED) Additional Instructions: Please follow-up with your primary care physician tomorrow. If you have any worsening or new symptoms, please return to the emergency room or call 911 Prescriptions: New acetaminophen 500 mg tablet 500 mg PO Q6H PRN (Reason: fever or pain) Qty: 20 0RF benzonatate 100 mg capsule 100 mg PO TID PRN (Reason: cough) Qty: 14 0RF No Action amoxicillin-pot clavulanate [Augmentin] 500-125 mg tablet 1 tab PO BID Qty: 14 0RF artificial tears(hypromellose) 0.5 % drops 2 drp ophthalmic (eye) Q2-4H PRN (Reason: dry eye(s)) Qty: 15 0RF hydroxyzine HCl 25 mg tablet 25 mg PO TID 3 Days Qty: 9 0RF amoxicillin-pot clavulanate 875-125 mg tablet 1 tab PO BID 7 Days Qty: 14 0RF allopurinol 100 mg tablet 50 mg PO DAILY Qty: 14 0RF cyclobenzaprine 5 mg tablet 5 mg PO BEDTIME PRN (Reason: muscle spasm) Qty: 4 0RF allopurinol 200 mg tablet 200 mg PO DAILY Qty: 30 0RF colchicine 0.6 mg tablet 0.6 mg PO BID Qty: 30 0RF indomethacin 50 mg capsule 50 mg PO QID Qty: 30 0RF Rx Instructions: administer with food or milk prednisone 20 mg tablet 40 mg PO DAILY Qty: 14 0RF naproxen 500 mg tablet 500 mg PO BID PRN (Reason: pain) 7 Days Qty: 14 0RF ibuprofen 600 mg tablet 600 mg PO TID PRN (Reason: fever or pain) Qty: 20 0RF prednisone 50 mg tablet 50 mg PO DAILY Qty: 5 0RF allopurinol 100 mg tablet 100 mg PO DAILY Qty: 14 0RF azithromycin 500 mg tablet 500 mg PO DAILY 5 Days Qty: 5 0RF valacyclovir [Valtrex] 1 gram tablet 1,000 mg PO TID 10 Days Qty: 30 0RF prednisone 20 mg tablet 20 mg PO .COMPLEX Qty: 18 0RF Rx Instructions: 20 mg PO 3 p.o. daily for 3 days followed by 2 p.o. daily for 3 days followed by 1 p.o. daily for 3 days; sulfamethoxazole-trimethoprim 800-160 mg tablet 1 tab PO BID 7 Days Qty: 14 0RF Stand Alone Forms: Work/School Release
--- NOTE | 2023-08-22 06:30 | PC.NURSE ---
pt positive for covid, education on precaution, reviewed discharge instruction with pt. pt verbalized understanding
== END 2023-08-22 06:31 | disposition home or self-care (01) ==
PROVIDERS: Emergency Provider Emergency Medicine; PCP Internal Medicine
DX: U07.1 COVID-19 (principal); R05.9 Cough, unspecified; H92.03 Otalgia, bilateral
CPT/HCPCS: 0241U; 71046; 99283; 99284

== ENCOUNTER 2023-08-25 05:20 | Emergency (ER) | payer OTHER, SELFPAY ==
[2023-08-25 05:26] VITALS: BP 139/89; PULSE 72; RESP 18; TEMP 36.6; O2SAT 98; BMI 34.3
--- NOTE | 2023-08-25 06:03 | ED.GENADULT ---
HPI - General Adult General Chief complaint: Dyspnea Stated complaint: covid+, rash on face, sob Time Seen by Provider: 08/25/23 05:53 History of Present Illness HPI narrative: patient 38-year-old male with a history of COVID. Patient tested positive on Friday. Symptoms started the same day. Been complaining of some coughing upper respiratory symptoms. Patient feels short of breath. Patient feels like when he takes a deep breath he cannot get a full breath in. no chest pain on breathing. Also complaining when he drinks something cold he has pain to the chest that is lasting 1-2 seconds each time. Patient had a chest x-ray done 2 days ago which was grossly negative. He is not vaccinated at all. He is not a smoker. never had a COVID infection came in for further evaluation Related Data Previous Rx's Medication Instructions Recorded amoxicillin 500 mg-potassium 1 tab PO BID #14 tabs 01/13/21 clavulanate 125 mg tablet (Augmentin) azithromycin 500 mg tablet 500 mg PO DAILY 5 days #5 tabs 01/18/21 valacyclovir 1 gram tablet 1,000 mg PO TID 10 days #30 tabs 01/18/21 (Valtrex) artificial tears(hypromellose) 0.5 2 drp ophthalmic (eye) Q2-4H PRN 01/20/21 % eye drops dry eye(s) #15 mL prednisone 20 mg tablet 20 mg PO .COMPLEX #18 tabs 03/19/21 sulfamethoxazole 800 1 tab PO BID 7 days #14 tabs 03/19/21 mg-trimethoprim 160 mg tablet hydroxyzine HCl 25 mg tablet 25 mg PO TID 3 days #9 tabs 03/27/21 allopurinol 100 mg tablet 50 mg (1/2 x 100 mg) PO DAILY #14 02/16/22 tabs amoxicillin 875 mg-potassium 1 tab PO BID 7 days #14 tabs 08/15/22 clavulanate 125 mg tablet cyclobenzaprine 5 mg tablet 5 mg PO BEDTIME PRN muscle spasm 09/21/22 #4 tabs allopurinol 100 mg tablet 100 mg PO DAILY #14 tabs 12/14/22 ibuprofen 600 mg tablet 600 mg PO TID PRN fever or pain 12/14/22 #20 tabs prednisone 50 mg tablet 50 mg PO DAILY #5 tabs 12/14/22 allopurinol 200 mg tablet 200 mg PO DAILY #30 tabs 12/31/22 colchicine 0.6 mg tablet 0.6 mg PO BID #30 tabs 12/31/22 indomethacin 50 mg capsule 50 mg PO QID #30 caps 12/31/22 prednisone 20 mg tablet 40 mg (2 x 20 mg) PO DAILY #14 tabs 12/31/22 naproxen 500 mg tablet 500 mg PO BID PRN pain 7 days #14 03/09/23 tabs acetaminophen 500 mg tablet 500 mg PO Q6H PRN fever or pain 08/22/23 #20 tabs benzonatate 100 mg capsule 100 mg PO TID PRN cough #14 caps 08/22/23 nirmatrelvir 300 mg (150 mg See Rx Instructions PO .COMPLEX 08/25/23 x2)-ritonavir 100 mg tablet,dose #30 ea pack (Paxlovid) Allergies Allergy/AdvReac Type Severity Reaction Status Date / Time No Known Allergies Allergy Verified 08/25/23 05:26 [No Known Allergies*] Review of Systems Review of Systems: positive coughing positive chest pain only with cold fluid ingestion PMFSH Past Medical History Attestation statement: The following information was validated with the patient. Source: unable to obtain Onset Date is defined in the Problem List Problems that require an onset date and time if occurred within 24 hrs of arrival to the ED Aortic Dissection and Rupture; Neurologic impairment; Cardiopulmonary Arrest; Endotracheal Intubation; Insertion or Replacement of Mechanical Circulatory Assist Device Medical History (Updated 08/25/23 @ 06:07 by Laura Ovalles MD) Bennett's palsy Gout Surgical History No history of previous surgery Social History Social History Alcohol intake: unknown Patient Tobacco Use Status: Never used Tobacco Advance Directives: No Advance Directives Information Provided: Yes Physical Exam ED Vital Signs: Vital Signs - 24 hr 08/25/23 05:26 Temperature 98 F Pulse Rate 72 Respiratory Rate 18 Blood Pressure 139/89 Pulse Oximetry 98 Oxygen Delivery Method Room Air BMI result Body Mass Index 34.3 Appearance: Alert. Oriented X3. No acute distress. Eyes: Pupils equal, round and reactive to light. ENT: Pharynx normal. Neck: Normal inspection. Neck supple. No lymph nodes noted. No crepitus CVS: Normal heart rate and rhythm. Pulses normal. Normal S1 and S2 Respiratory: No respiratory distress. Breath sounds normal. No Wheezing. No rales Abdomen: Soft and nontender. No rigidity. No distention. good BS x4 Skin: Skin warm and dry. Normal skin color. Normal skin turgor. Extremities: No lower extremity edema. Neurovascular intact to all extremities. No Lacerations. No Rash Neuro: Oriented X 3. No motor deficit. No sensory deficit. Moving all extermities. No slurred speech Medical Decision Making Medical Decision Making MDM Narrative: patient well-appearing O2 sat is 98% on room air no distress. Already tested for COVID flu RSV last time. Positive for COVID. Symptom is a continuation of previous visit. [place] there is no need for additional testing. Patient already had a chest x-ray done 2 days ago. Had no pneumothorax no pneumonia at that time. will discharge patient home. Patient stated that he changes mind about taking antiviral for his COVID infection. Will give a prescription for Paxlovid Differential Diagnosis Differential Diagnoses: The differential diagnosis associated with the presentation includes upper respiratory infection, COVID, pneumonia Admission/Observation Consideration of admission/observation: Escalation of care including admission/observation considered External Record Review previous x-ray record reviewed Discharge Plan Discharge Clinical Impression: COVID-19 Patient Disposition: Home, Self-Care Instructions: COVID-19 (Coronavirus Disease 2019) (ED) Prescriptions: New Paxlovid 300 mg (150 mg x 2)-100 mg tablets,dose pack See Rx Instructions .ROUTE .COMPLEX Qty: 30 0RF Rx Instructions: take TWO 150 mg tablets of nirmatrelvir with ONE 100 mg tablet of ritonavir twice daily for 5 days No Action amoxicillin-pot clavulanate [Augmentin] 500-125 mg tablet 1 tab PO BID Qty: 14 0RF artificial tears(hypromellose) 0.5 % drops 2 drp ophthalmic (eye) Q2-4H PRN (Reason: dry eye(s)) Qty: 15 0RF hydroxyzine HCl 25 mg tablet 25 mg PO TID 3 Days Qty: 9 0RF amoxicillin-pot clavulanate 875-125 mg tablet 1 tab PO BID 7 Days Qty: 14 0RF allopurinol 100 mg tablet 50 mg PO DAILY Qty: 14 0RF cyclobenzaprine 5 mg tablet 5 mg PO BEDTIME PRN (Reason: muscle spasm) Qty: 4 0RF allopurinol 200 mg tablet 200 mg PO DAILY Qty: 30 0RF colchicine 0.6 mg tablet 0.6 mg PO BID Qty: 30 0RF indomethacin 50 mg capsule 50 mg PO QID Qty: 30 0RF Rx Instructions: administer with food or milk prednisone 20 mg tablet 40 mg PO DAILY Qty: 14 0RF naproxen 500 mg tablet 500 mg PO BID PRN (Reason: pain) 7 Days Qty: 14 0RF acetaminophen 500 mg tablet 500 mg PO Q6H PRN (Reason: fever or pain) Qty: 20 0RF benzonatate 100 mg capsule 100 mg PO TID PRN (Reason: cough) Qty: 14 0RF ibuprofen 600 mg tablet 600 mg PO TID PRN (Reason: fever or pain) Qty: 20 0RF prednisone 50 mg tablet 50 mg PO DAILY Qty: 5 0RF allopurinol 100 mg tablet 100 mg PO DAILY Qty: 14 0RF azithromycin 500 mg tablet 500 mg PO DAILY 5 Days Qty: 5 0RF valacyclovir [Valtrex] 1 gram tablet 1,000 mg PO TID 10 Days Qty: 30 0RF prednisone 20 mg tablet 20 mg PO .COMPLEX Qty: 18 0RF Rx Instructions: 20 mg PO 3 p.o. daily for 3 days followed by 2 p.o. daily for 3 days followed by 1 p.o. daily for 3 days; sulfamethoxazole-trimethoprim 800-160 mg tablet 1 tab PO BID 7 Days Qty: 14 0RF Referrals: Scott Bullock MD [Primary Care Provider] - 08/27/23
== END 2023-08-25 07:18 | disposition home or self-care (01) ==
PROVIDERS: Emergency Provider Emergency Medicine Emergency Medical Services; PCP Internal Medicine
DX: U07.1 COVID-19 (principal)
CPT/HCPCS: 99282; 99283

== ENCOUNTER 2024-01-06 16:52 | Emergency (ER) | payer MEDICAID, SELFPAY ==
--- NOTE | ~2024-01-06 | XR_ITS ---
EXAMINATION: XR WRIST, LEFT CLINICAL INFORMATION: Twisting COMPARISON: None available. TECHNIQUE: PA, lateral, and oblique views of the left wrist. FINDINGS: The bones and soft tissues are normal. No fracture. Alignment is anatomic with normal joint spaces. No erosions or abnormal soft tissue calcifications. XR/XR wrist LT min 3V IMPRESSION: No radiographic evidence of acute fracture or dislocation.
[2024-01-06 17:14] VITALS: BP 142/86; PULSE 88; RESP 16; TEMP 36.6; O2SAT 98; BMI 38.1
--- NOTE | 2024-01-06 17:15 | ED_ITS ---
HPI - General Adult General Chief complaint: Extremity Problem Stated complaint: L wrist pain Time Seen by Provider: 01/06/24 18:47 Source: patient, RN notes reviewed and old records reviewed Mode of arrival: ambulatory Limitations: no limitations History of Present Illness ED Provider: Danica Ramon PA-C HPI narrative: 38-year-old [id number] male with past medical history significant for gout present emergency department today for evaluation of atraumatic left wrist pain on waking this morning. He denies injury/trauma. He believes this may be a gout flare however he has only ever had a flare in his great toe. Denies recent tick or insect bites. Denies any other joint swelling. Denies fever, chills numbness/tingling/weakness of the left upper extremity, rashes. Related Data Previous Rx's ?Medication ?Instructions ?Recorded amoxicillin 500 mg-potassium 1 tab PO BID #14 tabs 01/13/21 clavulanate 125 mg tablet (Augmentin) azithromycin 500 mg tablet 500 mg PO DAILY 5 days #5 tabs 01/18/21 valacyclovir 1 gram tablet 1,000 mg PO TID 10 days #30 tabs 01/18/21 (Valtrex) artificial tears(hypromellose) 0.5 2 drp ophthalmic (eye) Q2-4H PRN 01/20/21 % eye drops dry eye(s) #15 mL prednisone 20 mg tablet 20 mg PO .COMPLEX #18 tabs 03/19/21 sulfamethoxazole 800 1 tab PO BID 7 days #14 tabs 03/19/21 mg-trimethoprim 160 mg tablet hydroxyzine HCl 25 mg tablet 25 mg PO TID 3 days #9 tabs 03/27/21 allopurinol 100 mg tablet 50 mg (1/2 x 100 mg) PO DAILY #14 02/16/22 tabs amoxicillin 875 mg-potassium 1 tab PO BID 7 days #14 tabs 08/15/22 clavulanate 125 mg tablet cyclobenzaprine 5 mg tablet 5 mg PO BEDTIME PRN muscle spasm 09/21/22 #4 tabs allopurinol 100 mg tablet 100 mg PO DAILY #14 tabs 12/14/22 ibuprofen 600 mg tablet 600 mg PO TID PRN fever or pain 12/14/22 #20 tabs prednisone 50 mg tablet 50 mg PO DAILY #5 tabs 12/14/22 allopurinol 200 mg tablet 200 mg PO DAILY #30 tabs 12/31/22 colchicine 0.6 mg tablet 0.6 mg PO BID #30 tabs 12/31/22 indomethacin 50 mg capsule 50 mg PO QID #30 caps 12/31/22 prednisone 20 mg tablet 40 mg (2 x 20 mg) PO DAILY #14 tabs 12/31/22 naproxen 500 mg tablet 500 mg PO BID PRN pain 7 days #14 03/09/23 tabs acetaminophen 500 mg tablet 500 mg PO Q6H PRN fever or pain 08/22/23 #20 tabs benzonatate 100 mg capsule 100 mg PO TID PRN cough #14 caps 08/22/23 nirmatrelvir 300 mg (150 mg See Rx Instructions PO .COMPLEX 08/25/23 x2)-ritonavir 100 mg tablet,dose #30 ea pack (Paxlovid) indomethacin 50 mg capsule 50 mg PO TID #20 caps 01/06/24 prednisone 50 mg tablet 50 mg PO DAILY 5 days #5 tabs 01/06/24 Allergies Allergy/AdvReac Type Severity Reaction Status Date / Time No Known Allergies Allergy Verified 01/06/24 17:16 [No Known Allergies*] Review of Systems 2 Review of Systems: Constitutional: No fever, chills, fatigue, night sweats, weight changes ENT/Mouth: No ear pain, hearing loss, nasal congestion, sinus pain, rhinorrhea, sore throat Eyes: No eye pain, swelling, redness, vision changes, discharge Cardio: No chest pain, palpitations, MARTINEZ, orthopnea, peripheral edema Pulm: No SOB, cough, sputum, wheezing, dyspnea, hemoptysis GI: No nausea, vomiting, hematemesis, abdominal pain, diarrhea, constipation, hematochezia, melena : No irregular bleeding, dysuria, frequency, urgency, hesitancy, hematuria, flank pain, urinary flow changes, urinary incontinence or retention MSK: No back pain, neck pain, joint pain, myalgias, +left wrist pain/ swelling Skin: No lesions, rashes Neuro: No weakness, numbness, paresthesias, LOC, dizziness, headache Psych: No anxiety/panic, depression, SI/HI, AH/VH All other systems reviewed and are negative. [facility] Past Medical History Attestation statement: The following information was validated with the patient. Source: old records reviewed and nursing notes reviewed Medical History Bennett's palsy Gout Surgical History No history of previous surgery Social History Social History Alcohol intake: unknown Patient Tobacco Use Status: Never used Tobacco Advance Directives: No Advance Directives Information Provided: No Physical Exam ED Vital Signs: Vital Signs - 24 hr 01/06/24 17:14 01/06/24 19:14 Temperature 97.9 F 98.1 F Pulse Rate 88 74 Respiratory Rate 16 16 Blood Pressure 142/86 H 136/105 H Pulse Oximetry 98 98 Oxygen Delivery Method Room Air Room Air BMI result Body Mass Index 38.1 Patient hypertensive, vitals otherwise WNL Const General: cooperative, healthy appearing, comfortable and no acute distress Orientation/consciousness: patient oriented x3 Limitations: no limitations [facility] Head: Yes normal to inspection, Yes No palpable skull fracture present, Yes normocephalic and Yes atraumatic Eyes General: appearance normal, both eyes and all related structures Pupils: Equal, round and reactive pupils present Neck Neck: Yes normal visual inspection, Yes full ROM, Yes no lymphadenopathy and Yes no meningeal signs Resp Effort & Inspection: normal respiratory effort and able to speak in complete sentences Auscultation: clear to auscultation bilaterally Cardio Rate: regular rate Rhythm: regular rhythm Skin General skin exam: no rashes or lesions noted Neuro General: patient oriented x3, gait normal and no meningeal signs Cranial nerves: Yes Equal, round and reactive pupils present Extrem Other: + left wrist with minimal swelling. No overlying skin changes. Nontender to palpation. No palpable warmth, fluctuance, deformity. Full ROM intact. 2+ radial and ulnar pulse. Sensation intact General: Yes normal exam except as noted Course Course Course Narrative: This is a Rapid Medical Examination (RME) performed by Fabricio Ramon PA-C in triage. Full HPI, ROS, assessment and treatment plan per primary provider in the Main ED. 38 yo right hand dom male hx of gout here for eval of left wrist pain/ swelling on waking this morning. denies injury/ trauma. states it may be a gout flare however he has only ever had a flare in his great toe. denies recent tick or insect bites. denies other joint swelling. full rom intact to left wrist. 2+radial pulse. Plan: labs, xr Reevaluation(s) Reevaluation #1: 1903-- CBC without leukocytosis or left shift. No anemia. H&H stable. Chemistry without acute electrolyte abnormality requiring intervention. Uric acid elevated to 10.3 > acute gout flare. xr left wrist without fracture. Discussed all workup results with patient. Likely acute gout flare. He was given one dose of prednisone in the ED today. Prednisone and indomethacin sent to pharmacy. Patient has remained stable throughout ED visit today. Discussed worrisome signs and symptoms and when to return to the ED. All questions answered at this time. Patient is agreeable with disposition and stable for discharge. Medications Administered Discontinued Medications Generic Name Dose Route Start Last Admin Trade Name Freq PRN Reason Stop Dose Admin Prednisone 50 mg 01/06/24 18:55 01/06/24 19:09 Prednisone 10 Mg Tablet PO 01/06/24 18:56 50 mg ONCE ONE Administration Procedures Orthopedic Splinting/Casting Injury #1: Side: left Upper Extremity Injury Location: wrist Upper Extremity Immobilizer: Nabil wrap Medical Decision Making Medical Decision Making [facility] Narrative: 38-year-old [id number] male with past medical history significant for gout present emergency department today for evaluation of atraumatic left wrist pain on waking this morning. Patient hypertensive, vitals otherwise WNL. Afebrile. He is nontoxic-appearing and in no acute distress. On exam, left wrist with minimal swelling. No overlying skin changes. Nontender to palpation. No palpable warmth, fluctuance, deformity. Full ROM intact. 2+ radial and ulnar pulse. Sensation intact. Differential diagnosis includes gout, arthritis. Low suspicion for Lyme arthritis, septic joint, fracture, dislocation. Unlikely nv compromise, threat to limb. Plan for labs, uric acid, xr. Differential Diagnosis Differential Diagnoses: The differential diagnosis associated with the presentation includes as above. Admission/Observation not indicated. Lab Data [facility] Lab Attestation statement: I reviewed the patient's lab results. As above 01/06/24 17:31 01/06/24 17:31 Labs: Lab Results 01/06/24 Range/Units 17:31 WBC 9.0 (4.8-10.8) X10*3/uL RBC 5.32 (4.60-5.80) X10*6/uL Hgb 15.3 (14.0-18.0) g/dl Hct 47.1 (42.0-52.0) % MCV 88.5 (80.0-98.0) fL MCH 28.8 (27.0-33.0) pg MCHC 32.5 (31.0-36.0) g/dl RDW 12.6 (11.0-16.0) % Plt Count 309 (160-400) X10*3/uL MPV 10.9 (9.4-12.4) fL Immature Gran % (Auto) 0.2 (0.0-0.4) % Neut % (Auto) 64.3 (45-73) % Lymph % (Auto) 24.3 (20-40) % [place] % (Auto) 7.5 (2-11) % Eos % (Auto) 3.3 (0-4) % Baso % (Auto) 0.4 (0-2) % Lymph # (Auto) 2.2 (1.2-4.9) X10*3/uL [place] # (Auto) 0.7 (0.1-1.2) X10*3/uL Eos # (Auto) 0.3 (0.0-0.4) X10*3/uL Baso # (Auto) 0.0 (0.0-0.2) X10*3/uL Abs Immat Gran (auto) 0.02 (0.00-0.03) X10*3/uL Absolute Neuts (auto) 5.8 (2.0-8.3) x10*3/uL Absolute Nucleated RBC 0.000 (0.0-0.012) X10*3/uL Nucleated RBC % (auto) 0.0 (0.0-0.2) /100WBC Sodium 144 (135-145) mmol/L Potassium 4.4 (3.3-5.1) mmol/L Chloride 106 (96-108) mmol/L Carbon Dioxide 27 (22-29) mmol/L Anion Gap 15 (12-20) BUN 20 H (9-16) mg/dL Creatinine 1.39 (0.5-1.4) mg/dL Estim Creat Clear Calc 75.2 Estimated GFR 57 Random Glucose 84 (60-115) mg/dL Uric Acid 10.3 H (3.4-7.0) mg/dL Calcium 10.2 D (8.4-10.2) mg/dL Magnesium 1.9 (1.6-2.6) mg/dL Total Bilirubin 0.3 (0.0-1.0) mg/dL AST 18 (5-37) U/L ALT 21 (0-40) U/L Alkaline Phosphatase 64 (39-117) U/L Total Protein 8.1 H (6.5-8.0) g/dL Albumin 4.4 (3.5-5.0) g/dL Independent Interpretation I performed an independent interpretation of an: Plain X-Ray Interpretation: XR left wrist without fracture, agree with radiologist's interpretation. Radiology Impression Discussion of test interpretation with radiology: I have reviewed the radiologist's reading. Radiologist Impression: EXAMINATION: XR WRIST, LEFT CLINICAL INFORMATION: Twisting COMPARISON: None available. TECHNIQUE: PA, lateral, and oblique views of the left wrist. FINDINGS: The bones and soft tissues are normal. No fracture. Alignment is anatomic with normal joint spaces. No erosions or abnormal soft tissue calcifications. XR/XR wrist LT min 3V IMPRESSION: No radiographic evidence of acute fracture or dislocation. External Record Review External record reviewed: Inpatient record, Office record, Outpatient record, Prior outpatient labs, Prior outpatient radiology, Primary care record and Outside ED record Prescription Management I considered prescription management with: Pain Medication (Indomethacin) and Other (Prednisone) Chronic Conditions Patient?s care impacted by: Other (Gout) Social Determinants Patient?s care significantly limited by Social Determinants of Health including: Other Social Determinant of Health Critical Care Time Critical Care Time Critical Care Time: No Discharge Plan Discharge Clinical Impression: Gout Qualifiers: Gout site: wrist Gout etiology: unspecified cause Chronicity: acute Patient Disposition: Home, Self-Care Instructions: Low Purine Diet (ED), Gout (ED) Additional Instructions: Your labs today are reassuring. Your uric acid levels were high, indicating acute gout attack. Prednisone has been sent to your pharmacy. Take this for the next 5 days as prescribed for gout. Naproxen as an anti-inflammatory that has been sent to your pharmacy. Take this as needed for pain/swelling. Follow-up with PCP. Return with new or worsening symptoms. In the case of an emergency call 911. Prescriptions: New prednisone 50 mg tablet 50 mg PO DAILY 5 Days Qty: 5 0RF indomethacin 50 mg capsule 50 mg PO TID Qty: 20 0RF Rx Instructions: administer with food or milk No Action amoxicillin-pot clavulanate [Augmentin] 500-125 mg tablet 1 tab PO BID Qty: 14 0RF artificial tears(hypromellose) 0.5 % drops 2 drp ophthalmic (eye) Q2-4H PRN (Reason: dry eye(s)) Qty: 15 0RF hydroxyzine HCl 25 mg tablet 25 mg PO TID 3 Days Qty: 9 0RF amoxicillin-pot clavulanate 875-125 mg tablet 1 tab PO BID 7 Days Qty: 14 0RF allopurinol 100 mg tablet 50 mg PO DAILY Qty: 14 0RF cyclobenzaprine 5 mg tablet 5 mg PO BEDTIME PRN (Reason: muscle spasm) Qty: 4 0RF allopurinol 200 mg tablet 200 mg PO DAILY Qty: 30 0RF colchicine 0.6 mg tablet 0.6 mg PO BID Qty: 30 0RF indomethacin 50 mg capsule 50 mg PO QID Qty: 30 0RF Rx Instructions: administer with food or milk prednisone 20 mg tablet 40 mg PO DAILY Qty: 14 0RF naproxen 500 mg tablet 500 mg PO BID PRN (Reason: pain) 7 Days Qty: 14 0RF acetaminophen 500 mg tablet 500 mg PO Q6H PRN (Reason: fever or pain) Qty: 20 0RF benzonatate 100 mg capsule 100 mg PO TID PRN (Reason: cough) Qty: 14 0RF Paxlovid 300 mg (150 mg x 2)-100 mg tablets,dose pack See Rx Instructions .ROUTE .COMPLEX Qty: 30 0RF Rx Instructions: take TWO 150 mg tablets of nirmatrelvir with ONE 100 mg tablet of ritonavir twice daily for 5 days ibuprofen 600 mg tablet 600 mg PO TID PRN (Reason: fever or pain) Qty: 20 0RF prednisone 50 mg tablet 50 mg PO DAILY Qty: 5 0RF allopurinol 100 mg tablet 100 mg PO DAILY Qty: 14 0RF azithromycin 500 mg tablet 500 mg PO DAILY 5 Days Qty: 5 0RF valacyclovir [Valtrex] 1 gram tablet 1,000 mg PO TID 10 Days Qty: 30 0RF prednisone 20 mg tablet 20 mg PO .COMPLEX Qty: 18 0RF Rx Instructions: 20 mg PO 3 p.o. daily for 3 days followed by 2 p.o. daily for 3 days followed by 1 p.o. daily for 3 days; sulfamethoxazole-trimethoprim 800-160 mg tablet 1 tab PO BID 7 Days Qty: 14 0RF Referrals: Scott Bullock MD [Primary Care Provider] - Interventions: ED Discharge Assessment Last Done: 01/06/24 19:14 Discharge Date/Time: 01/06/24 19:14 Print Language: Ukrainian
[2024-01-06 17:35] LABS: MANUAL DIFF FLAG NO
[2024-01-06 17:36] LABS: Basophils Percent Auto 0.4 % (0-2); Eosinophils Absolute Auto 0.3 X10*3/uL (0.0-0.4); Eosinophils Percent Auto 3.3 % (0-4); Hematocrit 47.1 % (42.0-52.0); Hemoglobin 15.3 g/dl (14.0-18.0); Imm Gran Abs Auto 0.02 X10*3/uL (0.00-0.03); Imm Gran Pct Auto 0.2 % (0.0-0.4); Lymphocytes Absolute Auto 2.2 X10*3/uL (1.2-4.9); Lymphocytes Percent Auto 24.3 % (20-40); Mean Corpuscular HGB Conc 32.5 g/dl (31.0-36.0); Mean Corpuscular Hemoglobin 28.8 pg (27.0-33.0); Mean Corpuscular Volume 88.5 fL (80.0-98.0); Mean Platelet Volume 10.9 fL (9.4-12.4); Monocytes Absolute Auto 0.7 X10*3/uL (0.1-1.2); Monocytes Percent Auto 7.5 % (2-11); Neutrophils Absolute Auto 5.8 x10*3/uL (2.0-8.3); Neutrophils Percent Auto 64.3 % (45-73); Platelet Count 309 X10*3/uL (160-400); Red Blood Count 5.32 X10*6/uL (4.60-5.80); Red Cell Distribution Width 12.6 % (11.0-16.0)
[2024-01-06 17:59] LABS: Alanine Aminotransferase 21 U/L (0-40); Albumin Level 4.4 g/dL (3.5-5.0); Alkaline Phosphatase 64 U/L (39-117); Anion Gap 15 (12-20); Aspartate Amino Transferase 18 U/L (5-37); Bilirubin Total 0.3 mg/dL (0.0-1.0); Blood Urea Nitrogen 20 mg/dL (9-16); Calcium 10.2 mg/dL (8.4-10.2); Carbon Dioxide 27 mmol/L (22-29); Chloride 106 mmol/L (96-108); Creatinine Clr Calc Pharmacy 75.2; Estimated Glomerular Filt Rate 57; Glucose Random 84 mg/dL (60-115); Magnesium 1.9 mg/dL (1.6-2.6); Potassium 4.4 mmol/L (3.3-5.1); Sodium 144 mmol/L (135-145); Total Protein 8.1 g/dL (6.5-8.0); Uric Acid 10.3 mg/dL (3.4-7.0)
[2024-01-06] MEDS: predniSONE 10 MG TABLET 50 MG PO (19:09)
[2024-01-06 19:14] VITALS: BP 136/105; PULSE 74; RESP 16; TEMP 36.7; O2SAT 98
== END 2024-01-06 19:14 | disposition home or self-care (01) ==
PROVIDERS: Physician Assistant Medical; Emergency Provider Emergency Medicine Emergency Medical Services; PCP Internal Medicine
DX: M10.9 Gout, unspecified (principal); M25.532 Pain in left wrist; Z79.899 Other long term (current) drug therapy
CPT/HCPCS: 36415; 73110; 80053; 83735; 84550; 85025; 99282; 99283

== ENCOUNTER 2024-01-27 21:21 | Emergency (ER) | payer MEDICAID, SELFPAY ==
[2024-01-27 22:02] VITALS: BP 149/93; PULSE 72; RESP 20; TEMP 37.1; O2SAT 98; BMI 34.3
[2024-01-27 22:16] LABS: MANUAL DIFF FLAG NO
[2024-01-27 22:22] LABS: Basophils Percent Auto 0.4 % (0-2); Eosinophils Absolute Auto 0.1 X10*3/uL (0.0-0.4); Eosinophils Percent Auto 1.4 % (0-4); Hematocrit 45.5 % (42.0-52.0); Hemoglobin 14.9 g/dl (14.0-18.0); Imm Gran Abs Auto 0.01 X10*3/uL (0.00-0.03); Imm Gran Pct Auto 0.1 % (0.0-0.4); Lymphocytes Absolute Auto 2.7 X10*3/uL (1.2-4.9); Lymphocytes Percent Auto 32.2 % (20-40); Mean Corpuscular HGB Conc 32.7 g/dl (31.0-36.0); Mean Corpuscular Hemoglobin 28.3 pg (27.0-33.0); Mean Corpuscular Volume 86.3 fL (80.0-98.0); Mean Platelet Volume 10.9 fL (9.4-12.4); Monocytes Absolute Auto 0.7 X10*3/uL (0.1-1.2); Monocytes Percent Auto 7.8 % (2-11); Neutrophils Absolute Auto 4.9 x10*3/uL (2.0-8.3); Neutrophils Percent Auto 58.1 % (45-73); Platelet Count 310 X10*3/uL (160-400); Red Blood Count 5.27 X10*6/uL (4.60-5.80); Red Cell Distribution Width 12.4 % (11.0-16.0); White Blood Count 8.5 X10*3/uL (4.8-10.8)
[2024-01-27 22:43] LABS: Alanine Aminotransferase 19 U/L (0-40); Albumin Level 4.1 g/dL (3.5-5.0); Alkaline Phosphatase 50 U/L (39-117); Anion Gap 14 (12-20); Aspartate Amino Transferase 17 U/L (5-37); Bilirubin Total 0.4 mg/dL (0.0-1.0); Blood Urea Nitrogen 21 mg/dL (9-16); Calcium 9.9 mg/dL (8.4-10.2); Carbon Dioxide 23 mmol/L (22-29); Chloride 108 mmol/L (96-108); Creatinine Clr Calc Pharmacy 79.6; Estimated Glomerular Filt Rate > 60; Glucose Random 98 mg/dL (60-115); Potassium 4.1 mmol/L (3.3-5.1); Sodium 141 mmol/L (135-145); Total Protein 7.5 g/dL (6.5-8.0)
[2024-01-27 23:10] LABS: Uric Acid 10.3 mg/dL (3.4-7.0)
[2024-01-28 00:11] VITALS: BP 115/78; PULSE 62; RESP 14; TEMP 36.6; O2SAT 99
--- NOTE | 2024-01-28 01:22 | ED.LOWEXIN ---
HPI - Extremity Injury (Lower) General Chief Complaint: Extremity Injury, Lower Stated Complaint: Gout Time Seen by Provider: 01/28/24 01:13 Source: patient Mode of arrival: ambulatory Limitations: no limitations History of Present Illness ED Provider: Dr. Tomeka Sweet HPI Narrative: Patient comes to the emergency room complaining of pain in the great toe of the right foot. Patient states that 2 weeks ago he was diagnosed with gout. Patient states that after treatment he started doing well. However, a few days ago, patient went to family/friends get together and patient had some alcohol. Patient states that the pain is barely starting. Patient denies any other joint pain. Related Data Previous Rx's ?Medication ?Instructions ?Recorded amoxicillin 500 mg-potassium 1 tab PO BID #14 tabs 01/13/21 clavulanate 125 mg tablet (Augmentin) azithromycin 500 mg tablet 500 mg PO DAILY 5 days #5 tabs 01/18/21 valacyclovir 1 gram tablet 1,000 mg PO TID 10 days #30 tabs 01/18/21 (Valtrex) artificial tears(hypromellose) 0.5 2 drp ophthalmic (eye) Q2-4H PRN 01/20/21 % eye drops dry eye(s) #15 mL prednisone 20 mg tablet 20 mg PO .COMPLEX #18 tabs 03/19/21 sulfamethoxazole 800 1 tab PO BID 7 days #14 tabs 03/19/21 mg-trimethoprim 160 mg tablet hydroxyzine HCl 25 mg tablet 25 mg PO TID 3 days #9 tabs 03/27/21 allopurinol 100 mg tablet 50 mg (1/2 x 100 mg) PO DAILY #14 02/16/22 tabs amoxicillin 875 mg-potassium 1 tab PO BID 7 days #14 tabs 08/15/22 clavulanate 125 mg tablet cyclobenzaprine 5 mg tablet 5 mg PO BEDTIME PRN muscle spasm 09/21/22 #4 tabs allopurinol 100 mg tablet 100 mg PO DAILY #14 tabs 12/14/22 ibuprofen 600 mg tablet 600 mg PO TID PRN fever or pain 12/14/22 #20 tabs prednisone 50 mg tablet 50 mg PO DAILY #5 tabs 12/14/22 allopurinol 200 mg tablet 200 mg PO DAILY #30 tabs 12/31/22 colchicine 0.6 mg tablet 0.6 mg PO BID #30 tabs 12/31/22 indomethacin 50 mg capsule 50 mg PO QID #30 caps 12/31/22 prednisone 20 mg tablet 40 mg (2 x 20 mg) PO DAILY #14 tabs 12/31/22 naproxen 500 mg tablet 500 mg PO BID PRN pain 7 days #14 03/09/23 tabs acetaminophen 500 mg tablet 500 mg PO Q6H PRN fever or pain 08/22/23 #20 tabs benzonatate 100 mg capsule 100 mg PO TID PRN cough #14 caps 08/22/23 nirmatrelvir 300 mg (150 mg See Rx Instructions PO .COMPLEX 08/25/23 x2)-ritonavir 100 mg tablet,dose #30 ea pack (Paxlovid) indomethacin 50 mg capsule 50 mg PO TID #20 caps 01/06/24 prednisone 50 mg tablet 50 mg PO DAILY 5 days #5 tabs 01/06/24 colchicine 0.6 mg tablet 0.6 mg PO BID #14 tabs 01/28/24 prednisone 50 mg tablet 50 mg PO DAILY #4 tabs 01/28/24 Allergies Allergy/AdvReac Type Severity Reaction Status Date / Time No Known Allergies Allergy Verified 01/27/24 22:04 [No Known Allergies*] Review of Systems Review of Systems: Constitutional : No Weight loss, No Fever, No Chills, No Night Sweats, No Fatigue, No Malaise ENT/Mouth : No Hearing loss, No Ear Pain, No Nasal Congestion, No Sinus Pain, No Hoarseness, No sore throat, No Rhinorrhea, No Swallowing Difficulty Eyes: No Eye Pain, No Swelling, No Redness, No Foreign Body, No Discharge, No Vision Changes Cardiovascular : No Chest Pain, No SOB, No Dyspnea on Exertion, No Orthopnea, No Edema, No Palpitations Respiratory : No Cough, No Sputum, No Wheezing, No Smoke Exposure, No Dyspnea Gastrointestinal : No Nausea, No Vomiting, No Diarrhea, No Constipation, No abdominal Pain, No Hematochezia, No Melena Genitourinary : no irregular bleeding, No Dysuria, No Urinary Frequency, No Hematuria, No Urinary Incontinence, No Urgency, No Flank Pain, No Urinary Flow Changes, No Hesitancy Musculoskeletal : No joint pain, No Myalgias, No Joint Swelling Skin : Complaining mild erythema and pain in the 1st toe of the right foot Neuro : No Weakness, No Numbness, No Paresthesias, No Loss of Consciousness, No Dizziness, No Headache Psych : No Anxiety/Panic, No Depression, No SI/HI/AH/VH, No Social Issues, Heme/Lymph: No Bruising, No Bleeding,No Lymphadenopathy Endocrine : No Polyuria, No Polydipsia, No Temperature Intolerance [facility] Past Medical History Medical History Bennett's palsy Gout Surgical History No history of previous surgery Social History Social History Alcohol intake: unknown Patient Tobacco Use Status: Never used Tobacco Advance Directives: No Advance Directives Information Provided: No Do you have a plan to hurt others: No Plan Physical Exam Vital Signs: Vital Signs: Last Vital Signs Temp 97.9 F 01/28/24 00:11 Pulse 62 01/28/24 00:11 Resp 14 01/28/24 00:11 BP 115/78 01/28/24 00:11 Pulse Ox 99 01/28/24 00:11 O2 Del Method Room Air 01/28/24 00:11 BMI result Body Mass Index 34.3 Const: Other: Appearance: Alert. Oriented X3. No acute distress. Eyes: Pupils equal, round and reactive to light. ENT: Pharynx normal. Neck: Normal inspection. Neck supple. No lymph nodes noted. No crepitus CVS: Normal heart rate and rhythm. Pulses normal. Normal S1 and S2 Respiratory: No respiratory distress. Breath sounds normal. No Wheezing. No rales Abdomen: Soft and nontender. No rigidity. No distention. Skin: Skin warm and dry. Normal skin color. Normal skin turgor. Extremities: No lower extremity edema. No Lacerations. Patient has very mild erythema in the proximal aspect of the great toe of the right foot, no embedded toenail, no signs of cellulitis Neuro: Oriented X 3. No motor deficit. No sensory deficit. Moving all extremities. No slurred speech. CN 2 through 12 grossly intact Psych: calm, cooperative, normal affect Medical Decision Making Medical Decision Making MDM Narrative: -my interpretation of labs: Normal hematology and chemistry -patient was given the 1st dose of colchicine and prednisone in the ED. Differential Diagnosis Differential Diagnoses: The differential diagnosis associated with the presentation includes (Gout, cellulitis, embedded toenail) Lab Data MDM Lab Attestation statement: I reviewed the patient's lab results. 01/27/24 22:12 01/27/24 22:12 Labs: Lab Results 01/27/24 Range/Units 22:12 WBC 8.5 (4.8-10.8) X10*3/uL RBC 5.27 (4.60-5.80) X10*6/uL Hgb 14.9 (14.0-18.0) g/dl Hct 45.5 (42.0-52.0) % MCV 86.3 (80.0-98.0) fL MCH 28.3 (27.0-33.0) pg MCHC 32.7 (31.0-36.0) g/dl RDW 12.4 (11.0-16.0) % Plt Count 310 (160-400) X10*3/uL MPV 10.9 (9.4-12.4) fL Immature Gran % (Auto) 0.1 (0.0-0.4) % Neut % (Auto) 58.1 (45-73) % Lymph % (Auto) 32.2 (20-40) % [place] % (Auto) 7.8 (2-11) % Eos % (Auto) 1.4 (0-4) % Baso % (Auto) 0.4 (0-2) % Lymph # (Auto) 2.7 (1.2-4.9) X10*3/uL [place] # (Auto) 0.7 (0.1-1.2) X10*3/uL Eos # (Auto) 0.1 (0.0-0.4) X10*3/uL Baso # (Auto) 0.0 (0.0-0.2) X10*3/uL Abs Immat Gran (auto) 0.01 (0.00-0.03) X10*3/uL Absolute Neuts (auto) 4.9 (2.0-8.3) x10*3/uL Absolute Nucleated RBC 0.000 (0.0-0.012) X10*3/uL Nucleated RBC % (auto) 0.0 (0.0-0.2) /100WBC Sodium 141 (135-145) mmol/L Potassium 4.1 (3.3-5.1) mmol/L Chloride 108 (96-108) mmol/L Carbon Dioxide 23 (22-29) mmol/L Anion Gap 14 (12-20) BUN 21 H (9-16) mg/dL Creatinine 1.29 (0.5-1.4) mg/dL Estim Creat Clear Calc 79.6 Estimated GFR > 60 Random Glucose 98 (60-115) mg/dL Uric Acid 10.3 H (3.4-7.0) mg/dL Calcium 9.9 (8.4-10.2) mg/dL Total Bilirubin 0.4 (0.0-1.0) mg/dL AST 17 (5-37) U/L ALT 19 (0-40) U/L Alkaline Phosphatase 50 (39-117) U/L Total Protein 7.5 (6.5-8.0) g/dL Albumin 4.1 (3.5-5.0) g/dL Discharge Plan Discharge Clinical Impression: Gout Patient Disposition: Home, Self-Care Instructions: Low Purine Diet (ED), Gout (ED) Additional Instructions: Please follow-up with your primary care physician tomorrow. If you have any worsening or new symptoms, please return to the emergency room or call 911 Prescriptions: New colchicine 0.6 mg tablet 0.6 mg PO BID Qty: 14 0RF prednisone 50 mg tablet 50 mg PO DAILY Qty: 4 0RF No Action amoxicillin-pot clavulanate [Augmentin] 500-125 mg tablet 1 tab PO BID Qty: 14 0RF artificial tears(hypromellose) 0.5 % drops 2 drp ophthalmic (eye) Q2-4H PRN (Reason: dry eye(s)) Qty: 15 0RF hydroxyzine HCl 25 mg tablet 25 mg PO TID 3 Days Qty: 9 0RF amoxicillin-pot clavulanate 875-125 mg tablet 1 tab PO BID 7 Days Qty: 14 0RF allopurinol 100 mg tablet 50 mg PO DAILY Qty: 14 0RF cyclobenzaprine 5 mg tablet 5 mg PO BEDTIME PRN (Reason: muscle spasm) Qty: 4 0RF allopurinol 200 mg tablet 200 mg PO DAILY Qty: 30 0RF colchicine 0.6 mg tablet 0.6 mg PO BID Qty: 30 0RF indomethacin 50 mg capsule 50 mg PO QID Qty: 30 0RF Rx Instructions: administer with food or milk prednisone 20 mg tablet 40 mg PO DAILY Qty: 14 0RF naproxen 500 mg tablet 500 mg PO BID PRN (Reason: pain) 7 Days Qty: 14 0RF acetaminophen 500 mg tablet 500 mg PO Q6H PRN (Reason: fever or pain) Qty: 20 0RF benzonatate 100 mg capsule 100 mg PO TID PRN (Reason: cough) Qty: 14 0RF Paxlovid 300 mg (150 mg x 2)-100 mg tablets,dose pack See Rx Instructions .ROUTE .COMPLEX Qty: 30 0RF Rx Instructions: take TWO 150 mg tablets of nirmatrelvir with ONE 100 mg tablet of ritonavir twice daily for 5 days prednisone 50 mg tablet 50 mg PO DAILY 5 Days Qty: 5 0RF indomethacin 50 mg capsule 50 mg PO TID Qty: 20 0RF Rx Instructions: administer with food or milk ibuprofen 600 mg tablet 600 mg PO TID PRN (Reason: fever or pain) Qty: 20 0RF prednisone 50 mg tablet 50 mg PO DAILY Qty: 5 0RF allopurinol 100 mg tablet 100 mg PO DAILY Qty: 14 0RF azithromycin 500 mg tablet 500 mg PO DAILY 5 Days Qty: 5 0RF valacyclovir [Valtrex] 1 gram tablet 1,000 mg PO TID 10 Days Qty: 30 0RF prednisone 20 mg tablet 20 mg PO .COMPLEX Qty: 18 0RF Rx Instructions: 20 mg PO 3 p.o. daily for 3 days followed by 2 p.o. daily for 3 days followed by 1 p.o. daily for 3 days; sulfamethoxazole-trimethoprim 800-160 mg tablet 1 tab PO BID 7 Days Qty: 14 0RF Print Language: Yemeni
[2024-01-28] MEDS: predniSONE 10 MG TABLET 50 MG PO (01:53)
[2024-01-28] MEDS: Colchicine 0.6 MG TABLET 1.2 MG PO (01:53)
[2024-01-28 01:56] VITALS: BP 125/84; PULSE 66; RESP 18; TEMP 36.4; O2SAT 98
[2024-01-28 01:58] VITALS: BP 125/84; PULSE 66; RESP 18; TEMP 36.4; O2SAT 98
== END 2024-01-28 01:59 | disposition home or self-care (01) ==
PROVIDERS: Emergency Provider Emergency Medicine; PCP Internal Medicine
DX: M10.071 Idiopathic gout, right ankle and foot (principal); Z79.899 Other long term (current) drug therapy
CPT/HCPCS: 36415; 80053; 84550; 85025; 99283

== ENCOUNTER 2024-04-29 02:29 | Emergency (ER) | payer MEDICAID, SELFPAY ==
--- NOTE | ~2024-04-29 | XR_ITS ---
EXAMINATION: XR KNEE, RIGHT CLINICAL INDICATION: Pain COMPARISON: None TECHNIQUE: 2 views of the right knee. FINDINGS: Osseous alignment is anatomic. Joint spaces appear maintained. No acute fracture is seen. No significant effusion. XR/XR knee RT 2V IMPRESSION: No acute findings identified. Electronically signed by: Nacho Leon MD 04/29/2024 04:18 AM EDT
[2024-04-29 02:55] VITALS: BP 106/65; PULSE 62; RESP 18; TEMP 36.9; O2SAT 99; BMI 32.2
--- NOTE | 2024-04-29 04:12 | ED_ITS ---
HPI - Extremity Injury (Lower) General Chief Complaint: Extremity Injury, Lower Stated Complaint: Rt Knee Pain Time Seen by Provider: 04/29/24 04:01 Source: patient Mode of arrival: ambulatory Limitations: no limitations History of Present Illness ED Provider: Dr. Tomeka Sweet HPI Narrative: Patient comes to the emergency room complaining of right knee pain. Patient denies any injuries. Patient states that it hurts. Patient has history of gout but states that the pain is not significant, able to walk. Patient states that since the last time he was diagnosed with gout, and prescribed indomethacin, patient states that he has not had any gouty attacks, also stopped eating red meats and aged cheeses and no white. Patient is put up knee brace in his knee, states that when he puts it on it feels better and he can walk better. Related Data Previous Rx's ?Medication ?Instructions ?Recorded amoxicillin 500 mg-potassium 1 tab PO BID #14 tabs 01/13/21 clavulanate 125 mg tablet (Augmentin) azithromycin 500 mg tablet 500 mg PO DAILY 5 days #5 tabs 01/18/21 valacyclovir 1 gram tablet 1,000 mg PO TID 10 days #30 tabs 01/18/21 (Valtrex) artificial tears(hypromellose) 0.5 2 drp ophthalmic (eye) Q2-4H PRN 01/20/21 % eye drops dry eye(s) #15 mL prednisone 20 mg tablet 20 mg PO .COMPLEX #18 tabs 03/19/21 sulfamethoxazole 800 1 tab PO BID 7 days #14 tabs 03/19/21 mg-trimethoprim 160 mg tablet hydroxyzine HCl 25 mg tablet 25 mg PO TID 3 days #9 tabs 03/27/21 allopurinol 100 mg tablet 50 mg (1/2 x 100 mg) PO DAILY #14 02/16/22 tabs amoxicillin 875 mg-potassium 1 tab PO BID 7 days #14 tabs 08/15/22 clavulanate 125 mg tablet cyclobenzaprine 5 mg tablet 5 mg PO BEDTIME PRN muscle spasm 09/21/22 #4 tabs allopurinol 100 mg tablet 100 mg PO DAILY #14 tabs 12/14/22 ibuprofen 600 mg tablet 600 mg PO TID PRN fever or pain 12/14/22 #20 tabs prednisone 50 mg tablet 50 mg PO DAILY #5 tabs 12/14/22 allopurinol 200 mg tablet 200 mg PO DAILY #30 tabs 12/31/22 colchicine 0.6 mg tablet 0.6 mg PO BID #30 tabs 12/31/22 indomethacin 50 mg capsule 50 mg PO QID #30 caps 12/31/22 prednisone 20 mg tablet 40 mg (2 x 20 mg) PO DAILY #14 tabs 12/31/22 naproxen 500 mg tablet 500 mg PO BID PRN pain 7 days #14 03/09/23 tabs acetaminophen 500 mg tablet 500 mg PO Q6H PRN fever or pain 08/22/23 #20 tabs benzonatate 100 mg capsule 100 mg PO TID PRN cough #14 caps 08/22/23 nirmatrelvir 300 mg (150 mg See Rx Instructions PO .COMPLEX 08/25/23 x2)-ritonavir 100 mg tablet,dose #30 ea pack (Paxlovid) indomethacin 50 mg capsule 50 mg PO TID #20 caps 01/06/24 prednisone 50 mg tablet 50 mg PO DAILY 5 days #5 tabs 01/06/24 colchicine 0.6 mg tablet 0.6 mg PO BID #14 tabs 01/28/24 prednisone 50 mg tablet 50 mg PO DAILY #4 tabs 01/28/24 ketorolac 10 mg tablet 10 mg PO BID #7 tabs 04/29/24 Allergies Allergy/AdvReac Type Severity Reaction Status Date / Time No Known Allergies Allergy Verified 04/29/24 02:56 [No Known Allergies*] Review of Systems Review of Systems: Constitutional : No Weight loss, No Fever, No Chills, No Night Sweats, No Fatigue, No Malaise ENT/Mouth : No Hearing loss, No Ear Pain, No Nasal Congestion, No Sinus Pain, No Hoarseness, No sore throat, No Rhinorrhea, No Swallowing Difficulty Eyes: No Eye Pain, No Swelling, No Redness, No Foreign Body, No Discharge, No Vision Changes Cardiovascular : No Chest Pain, No SOB, No Dyspnea on Exertion, No Orthopnea, No Edema, No Palpitations Respiratory : No Cough, No Sputum, No Wheezing, No Smoke Exposure, No Dyspnea Gastrointestinal : No Nausea, No Vomiting, No Diarrhea, No Constipation, No abdominal Pain, No Hematochezia, No Melena Genitourinary : no irregular bleeding, No Dysuria, No Urinary Frequency, No Hematuria, No Urinary Incontinence, No Urgency, No Flank Pain, No Urinary Flow Changes, No Hesitancy Musculoskeletal : Complaining of right knee pain and swelling, No Myalgias, No Joint Swelling Skin : No Skin Lesions, No rash Neuro : No Weakness, No Numbness, No Paresthesias, No Loss of Consciousness, No Dizziness, No Headache Psych : No Anxiety/Panic, No Depression, No SI/HI/AH/VH, No Social Issues, Heme/Lymph: No Bruising, No Bleeding,No Lymphadenopathy Endocrine : No Polyuria, No Polydipsia, No Temperature Intolerance [facility] Past Medical History Medical History Bennett's palsy Gout Surgical History No history of previous surgery Social History Social History Alcohol intake: unknown Patient Tobacco Use Status: Never used Tobacco Smoked in Last 30 Days: No Use of substances other than those prescribed or required for medical reasons: No Advance Directives: No Advance Directives Information Provided: Yes Physical Exam Vital Signs: Vital Signs: Last Vital Signs Temp 98.5 F 04/29/24 02:55 Pulse 62 04/29/24 02:55 Resp 18 04/29/24 02:55 BP 106/65 04/29/24 02:55 Pulse Ox 99 04/29/24 02:55 O2 Del Method Room Air 04/29/24 02:55 BMI result Body Mass Index 32.2 Const: Other: Appearance: Alert. Oriented X3. No acute distress. Eyes: Pupils equal, round and reactive to light. ENT: Pharynx normal. Neck: Normal inspection. Neck supple. No lymph nodes noted. No crepitus CVS: Normal heart rate and rhythm. Pulses normal. Normal S1 and S2 Respiratory: No respiratory distress. Breath sounds normal. No Wheezing. No rales Abdomen: Soft and nontender. No rigidity. No distention. Skin: Skin warm and dry. Normal skin color. Normal skin turgor. Extremities: Patient able to flex and extend the right knee, able to bear weight. Very mild inflammation/effusion. No team, no additional warmth to palpation. No lower extremity edema. No Lacerations. No Rash Neuro: Oriented X 3. No motor deficit. No sensory deficit. Moving all extremities. No slurred speech. CN 2 through 12 grossly intact Psych: calm, cooperative, normal affect Medical Decision Making Medical Decision Making MDM Narrative: My interpretation of x-ray: Normal alignment, small effusion. -I discussed the x-rays with the patient, patient's knee was wrapped, patient able to bear weight, crutches not necessary. -patient giving a dose of IM ketorolac. -discussed with the patient that if he does not improve within a few days, he needs to follow-up with his PCP or Orthopedics, as he may need an MRI of his knee and or physical therapy. -patient agrees with plan -radiology report from the knee is not back yet. Patient states that he needs to leave soon to go to work. Independent Interpretation I performed an independent interpretation of an: Plain X-Ray Discharge Plan Discharge Clinical Impression: Effusion of knee Patient Disposition: Home, Self-Care Instructions: Swollen Knee Joint (ED) Additional Instructions: Please follow-up with your primary care physician tomorrow. If you have any worsening or new symptoms, please return to the emergency room or call 911 Prescriptions: New ketorolac 10 mg tablet 10 mg PO BID Qty: 7 0RF Rx Instructions: maximum total duration of 5 days from all oral, intranasal, or parenteral formulations No Action amoxicillin-pot clavulanate [Augmentin] 500-125 mg tablet 1 tab PO BID Qty: 14 0RF artificial tears(hypromellose) 0.5 % drops 2 drp ophthalmic (eye) Q2-4H PRN (Reason: dry eye(s)) Qty: 15 0RF hydroxyzine HCl 25 mg tablet 25 mg PO TID 3 Days Qty: 9 0RF amoxicillin-pot clavulanate 875-125 mg tablet 1 tab PO BID 7 Days Qty: 14 0RF allopurinol 100 mg tablet 50 mg PO DAILY Qty: 14 0RF cyclobenzaprine 5 mg tablet 5 mg PO BEDTIME PRN (Reason: muscle spasm) Qty: 4 0RF allopurinol 200 mg tablet 200 mg PO DAILY Qty: 30 0RF colchicine 0.6 mg tablet 0.6 mg PO BID Qty: 30 0RF indomethacin 50 mg capsule 50 mg PO QID Qty: 30 0RF Rx Instructions: administer with food or milk prednisone 20 mg tablet 40 mg PO DAILY Qty: 14 0RF naproxen 500 mg tablet 500 mg PO BID PRN (Reason: pain) 7 Days Qty: 14 0RF acetaminophen 500 mg tablet 500 mg PO Q6H PRN (Reason: fever or pain) Qty: 20 0RF benzonatate 100 mg capsule 100 mg PO TID PRN (Reason: cough) Qty: 14 0RF Paxlovid 300 mg (150 mg x 2)-100 mg tablets,dose pack See Rx Instructions .ROUTE .COMPLEX Qty: 30 0RF Rx Instructions: take TWO 150 mg tablets of nirmatrelvir with ONE 100 mg tablet of ritonavir twice daily for 5 days prednisone 50 mg tablet 50 mg PO DAILY 5 Days Qty: 5 0RF indomethacin 50 mg capsule 50 mg PO TID Qty: 20 0RF Rx Instructions: administer with food or milk ibuprofen 600 mg tablet 600 mg PO TID PRN (Reason: fever or pain) Qty: 20 0RF prednisone 50 mg tablet 50 mg PO DAILY Qty: 5 0RF allopurinol 100 mg tablet 100 mg PO DAILY Qty: 14 0RF colchicine 0.6 mg tablet 0.6 mg PO BID Qty: 14 0RF prednisone 50 mg tablet 50 mg PO DAILY Qty: 4 0RF azithromycin 500 mg tablet 500 mg PO DAILY 5 Days Qty: 5 0RF valacyclovir [Valtrex] 1 gram tablet 1,000 mg PO TID 10 Days Qty: 30 0RF prednisone 20 mg tablet 20 mg PO .COMPLEX Qty: 18 0RF Rx Instructions: 20 mg PO 3 p.o. daily for 3 days followed by 2 p.o. daily for 3 days followed by 1 p.o. daily for 3 days; sulfamethoxazole-trimethoprim 800-160 mg tablet 1 tab PO BID 7 Days Qty: 14 0RF Stand Alone Forms: Work/School Release Print Language: Bengali
[2024-04-29 04:15] VITALS: BP 126/79; PULSE 68; RESP 16; TEMP 37; O2SAT 97
[2024-04-29] MEDS: Ketorolac Tromethamine 60 MG/2 ML VIAL IM (04:15)
[2024-04-29 04:26] VITALS: BP 126/79; PULSE 68; RESP 16; TEMP 37; O2SAT 97
== END 2024-04-29 04:27 | disposition home or self-care (01) ==
PROVIDERS: Emergency Provider Emergency Medicine; PCP Internal Medicine
DX: M25.461 Effusion, right knee (principal); M25.561 Pain in right knee
CPT/HCPCS: 73560; 96372; 99284; J1885

== ENCOUNTER 2024-05-09 00:56 | Emergency (ER) | payer MEDICAID, SELFPAY ==
[2024-05-09 00:58] VITALS: BP 121/85; PULSE 60; RESP 16; TEMP 36.7; O2SAT 99; BMI 27.4
--- NOTE | 2024-05-09 02:06 | ED_ITS ---
HPI - Dental/Oral General Chief complaint: Dental/Oral Stated complaint: tooth pain Time Seen by Provider: 05/09/24 02:01 Source: patient Mode of arrival: ambulatory Limitations: no limitations History of Present Illness ED Provider: Dr. Rasmussen HPI Narrative: Broke his left lower molar while eating tonight Teeth map: 2 1. Onset (ago): hour(s) Duration: constant Related Data Previous Rx's ?Medication ?Instructions ?Recorded amoxicillin 500 mg-potassium 1 tab PO BID #14 tabs 01/13/21 clavulanate 125 mg tablet (Augmentin) azithromycin 500 mg tablet 500 mg PO DAILY 5 days #5 tabs 01/18/21 valacyclovir 1 gram tablet 1,000 mg PO TID 10 days #30 tabs 01/18/21 (Valtrex) artificial tears(hypromellose) 0.5 2 drp ophthalmic (eye) Q2-4H PRN 01/20/21 % eye drops dry eye(s) #15 mL prednisone 20 mg tablet 20 mg PO .COMPLEX #18 tabs 03/19/21 sulfamethoxazole 800 1 tab PO BID 7 days #14 tabs 03/19/21 mg-trimethoprim 160 mg tablet hydroxyzine HCl 25 mg tablet 25 mg PO TID 3 days #9 tabs 03/27/21 allopurinol 100 mg tablet 50 mg (1/2 x 100 mg) PO DAILY #14 02/16/22 tabs amoxicillin 875 mg-potassium 1 tab PO BID 7 days #14 tabs 08/15/22 clavulanate 125 mg tablet cyclobenzaprine 5 mg tablet 5 mg PO BEDTIME PRN muscle spasm 09/21/22 #4 tabs allopurinol 100 mg tablet 100 mg PO DAILY #14 tabs 12/14/22 ibuprofen 600 mg tablet 600 mg PO TID PRN fever or pain 12/14/22 #20 tabs prednisone 50 mg tablet 50 mg PO DAILY #5 tabs 12/14/22 allopurinol 200 mg tablet 200 mg PO DAILY #30 tabs 12/31/22 colchicine 0.6 mg tablet 0.6 mg PO BID #30 tabs 12/31/22 indomethacin 50 mg capsule 50 mg PO QID #30 caps 12/31/22 prednisone 20 mg tablet 40 mg (2 x 20 mg) PO DAILY #14 tabs 12/31/22 naproxen 500 mg tablet 500 mg PO BID PRN pain 7 days #14 03/09/23 tabs acetaminophen 500 mg tablet 500 mg PO Q6H PRN fever or pain 08/22/23 #20 tabs benzonatate 100 mg capsule 100 mg PO TID PRN cough #14 caps 08/22/23 nirmatrelvir 300 mg (150 mg See Rx Instructions PO .COMPLEX 08/25/23 x2)-ritonavir 100 mg tablet,dose #30 ea pack (Paxlovid) indomethacin 50 mg capsule 50 mg PO TID #20 caps 01/06/24 prednisone 50 mg tablet 50 mg PO DAILY 5 days #5 tabs 01/06/24 colchicine 0.6 mg tablet 0.6 mg PO BID #14 tabs 01/28/24 prednisone 50 mg tablet 50 mg PO DAILY #4 tabs 01/28/24 ketorolac 10 mg tablet 10 mg PO BID #7 tabs 04/29/24 amoxicillin 875 mg tablet 875 mg PO BID #14 tabs 05/09/24 naproxen 500 mg tablet (Naprosyn) 500 mg PO BID #20 tabs 05/09/24 Allergies Allergy/AdvReac Type Severity Reaction Status Date / Time No Known Allergies Allergy Verified 05/09/24 00:58 [No Known Allergies*] Review of Systems 2 Review of Systems: Yes all other systems are reviewed and are negative Neurologic: Denies Sensory deficit (Neuro) [facility] Past Medical History Medical History Bennett's palsy Gout Surgical History No history of previous surgery Social History Social History Alcohol intake: unknown Patient Tobacco Use Status: Never used Tobacco Advance Directives: No Advance Directives Information Provided: No Do you have a plan to hurt others: No Plan Physical Exam 2 Vital Signs: Vital Signs: Last Vital Signs Temp 98.1 F 05/09/24 00:58 Pulse 60 05/09/24 00:58 Resp 16 05/09/24 00:58 BP 121/85 05/09/24 00:58 Pulse Ox 99 05/09/24 00:58 O2 Del Method Room Air 09/22/24 00:58 BMI result Body Mass Index 27.4 Const: General: healthy appearing Nutritional Appearance: average body habitus Orientation/consciousness: oriented to person and patient oriented x3 Limitations: no limitations HEENT: Other: left lower molar broken in half, only half remains Head: Yes normal to inspection Ears: external ears normal General nose exam: Normal external nose present Mouth: Normal oral and palatal mucosa present and oropharynx normal Throat: Yes posterior oropharynx normal Eyes: General: appearance normal, both eyes and all related structures Neck: Other: supple Neck: Yes normal visual inspection Chest: Chest palpation & inspection: normal inspection of the chest Resp: Auscultation: clear to auscultation bilaterally Cardio: Jugular venous distension: no JVD Rate: regular rate Rhythm: r egular rhythm Heart sounds: S1 normal heart sound present and S2 normal heart sound present GI: Inspection: Yes normal to inspection Palpation (GI): Soft to palpation, nontender and No hepatosplenomegaly present Auscultation: normal bowel sounds : General: Yes no CVA tenderness Back/Spine/Pelvis: Back: no CVA tenderness Skin: General skin exam: no rashes or lesions noted Neuro: General: oriented to person and patient oriented x3 Cranial nerves: Yes CN's II-XII intact bilaterally Motor exam (neuro): 5/5 motor strength present throughout Sensory Exam: No Sensory deficit (Neuro) Extrem: General: Yes normal to inspection Psych: Appearance: grossly normal Course Reevaluation(s) Reevaluation #1: Will start amoxicillin for dental infection and broken tooth, patient needs to go to dentist Time: 02:12 Medical Decision Making Differential Diagnosis Differential Diagnoses: The differential diagnosis associated with the presentation includes (fractured molar, dental infection) Tests considered The following testing was considered but not selected: panorex of mandible but not available Discharge Plan Discharge Clinical Impression: Fracture of tooth, Dental infection Patient Disposition: Home, Self-Care Prescriptions: New amoxicillin 875 mg tablet 875 mg PO BID Qty: 14 0RF naproxen [Naprosyn] 500 mg tablet 500 mg PO BID Qty: 20 0RF No Action amoxicillin-pot clavulanate [Augmentin] 500-125 mg tablet 1 tab PO BID Qty: 14 0RF artificial tears(hypromellose) 0.5 % drops 2 drp ophthalmic (eye) Q2-4H PRN (Reason: dry eye(s)) Qty: 15 0RF hydroxyzine HCl 25 mg tablet 25 mg PO TID 3 Days Qty: 9 0RF amoxicillin-pot clavulanate 875-125 mg tablet 1 tab PO BID 7 Days Qty: 14 0RF allopurinol 100 mg tablet 50 mg PO DAILY Qty: 14 0RF cyclobenzaprine 5 mg tablet 5 mg PO BEDTIME PRN (Reason: muscle spasm) Qty: 4 0RF allopurinol 200 mg tablet 200 mg PO DAILY Qty: 30 0RF colchicine 0.6 mg tablet 0.6 mg PO BID Qty: 30 0RF indomethacin 50 mg capsule 50 mg PO QID Qty: 30 0RF Rx Instructions: administer with food or milk prednisone 20 mg tablet 40 mg PO DAILY Qty: 14 0RF naproxen 500 mg tablet 500 mg PO BID PRN (Reason: pain) 7 Days Qty: 14 0RF acetaminophen 500 mg tablet 500 mg PO Q6H PRN (Reason: fever or pain) Qty: 20 0RF benzonatate 100 mg capsule 100 mg PO TID PRN (Reason: cough) Qty: 14 0RF Paxlovid 300 mg (150 mg x 2)-100 mg tablets,dose pack See Rx Instructions .ROUTE .COMPLEX Qty: 30 0RF Rx Instructions: take TWO 150 mg tablets of nirmatrelvir with ONE 100 mg tablet of ritonavir twice daily for 5 days prednisone 50 mg tablet 50 mg PO DAILY 5 Days Qty: 5 0RF indomethacin 50 mg capsule 50 mg PO TID Qty: 20 0RF Rx Instructions: administer with food or milk ketorolac 10 mg tablet 10 mg PO BID Qty: 7 0RF Rx Instructions: maximum total duration of 5 days from all oral, intranasal, or parenteral formulations ibuprofen 600 mg tablet 600 mg PO TID PRN (Reason: fever or pain) Qty: 20 0RF prednisone 50 mg tablet 50 mg PO DAILY Qty: 5 0RF allopurinol 100 mg tablet 100 mg PO DAILY Qty: 14 0RF colchicine 0.6 mg tablet 0.6 mg PO BID Qty: 14 0RF prednisone 50 mg tablet 50 mg PO DAILY Qty: 4 0RF azithromycin 500 mg tablet 500 mg PO DAILY 5 Days Qty: 5 0RF valacyclovir [Valtrex] 1 gram tablet 1,000 mg PO TID 10 Days Qty: 30 0RF prednisone 20 mg tablet 20 mg PO .COMPLEX Qty: 18 0RF Rx Instructions: 20 mg PO 3 p.o. daily for 3 days followed by 2 p.o. daily for 3 days followed by 1 p.o. daily for 3 days; sulfamethoxazole-trimethoprim 800-160 mg tablet 1 tab PO BID 7 Days Qty: 14 0RF Print Language: Cymro
[2024-05-09] MEDS: Amoxicillin 500 MG CAPSULE PO (02:28)
[2024-05-09] MEDS: NaPROXEN 500 MG TABLET PO (02:28)
[2024-05-09 02:42] VITALS: BP 120/76; PULSE 82; RESP 18; TEMP 36.6; O2SAT 98
== END 2024-05-09 02:44 | disposition home or self-care (01) ==
PROVIDERS: Emergency Provider Emergency Medicine; PCP Internal Medicine
DX: K03.81 Cracked tooth (principal); Z79.899 Other long term (current) drug therapy
CPT/HCPCS: 99283; 99284

== ENCOUNTER 2024-05-14 16:38 | Outpatient (REF) | payer MEDICAID, SELFPAY ==
[2024-05-14 17:53] LABS: MANUAL DIFF FLAG NO
[2024-05-14 18:06] LABS: Basophils Percent Auto 0.6 % (0-2); Eosinophils Absolute Auto 0.2 X10*3/uL (0.0-0.4); Eosinophils Percent Auto 3.5 % (0-4); Hematocrit 45.4 % (42.0-52.0); Hemoglobin 14.7 g/dl (14.0-18.0); Imm Gran Abs Auto 0.01 X10*3/uL (0.00-0.03); Imm Gran Pct Auto 0.1 % (0.0-0.4); Lymphocytes Absolute Auto 2.5 X10*3/uL (1.2-4.9); Lymphocytes Percent Auto 36.4 % (20-40); Mean Corpuscular HGB Conc 32.4 g/dl (31.0-36.0); Mean Corpuscular Hemoglobin 28.4 pg (27.0-33.0); Mean Corpuscular Volume 87.6 fL (80.0-98.0); Mean Platelet Volume 11.9 fL (9.4-12.4); Monocytes Absolute Auto 0.5 X10*3/uL (0.1-1.2); Monocytes Percent Auto 7.5 % (2-11); Neutrophils Absolute Auto 3.6 x10*3/uL (2.0-8.3); Neutrophils Percent Auto 51.9 % (45-73); Platelet Count 282 X10*3/uL (160-400); Red Blood Count 5.18 X10*6/uL (4.60-5.80); Red Cell Distribution Width 12.6 % (11.0-16.0); White Blood Count 6.9 X10*3/uL (4.8-10.8)
[2024-05-14 18:27] LABS: Alanine Aminotransferase 21 U/L (0-40); Albumin Level 4.4 g/dL (3.5-5.0); Alkaline Phosphatase 59 U/L (39-117); Anion Gap 14 (12-20); Aspartate Amino Transferase 22 U/L (5-37); Bilirubin Total 0.5 mg/dL (0.0-1.0); Blood Urea Nitrogen 23 mg/dL (9-16); Calcium 10.1 mg/dL (8.4-10.2); Carbon Dioxide 26 mmol/L (22-29); Chloride 104 mmol/L (96-108); Cholesterol 106 mg/dL (<200); Estimated Glomerular Filt Rate 59; Glucose Random 86 mg/dL (60-115); HDL Cholesterol 51 mg/dL (>40); LDL Cholesterol Calculated 48 mg/dL (<100); Potassium 3.9 mmol/L (3.3-5.1); Sodium 140 mmol/L (135-145); Total Protein 7.8 g/dL (6.5-8.0); Triglycerides 35 mg/dL (<150)
[2024-05-14 18:45] LABS: TSH reflex Free T4 0.35 uIU/mL (0.32-4.0); Vitamin D 25-OH Total 36.2 ng/mL (>30)
[2024-05-15 04:10] LABS: Estimated Average Glucose 103 mg/dL; Hemoglobin A1c % 5.2 % (<6.0)
[2024-05-15 04:55] LABS: HIV AB/AG Nonreactive (Nonreactive); HIV Num 1 0.05 S/CO (0.00-0.99)
[2024-05-17 11:39] LABS: RPR Rapid Plasma Reagin NON-REACTIVE (NON-REACTIVE)
[2024-05-17 21:07] LABS: HCV Log PCR <1.18 NOT DETECTED Log IU/mL (NOT DETECTED); HepC Viral Load <15 NOT DETECTED IU/mL (NOT DETECTED)
== END 2024-05-14 16:39 | disposition home or self-care (01) ==
LOC: HO.HHCL 16:38
PROVIDERS: Visit Provider Internal Medicine
DX: M1A.9XX0 Chronic gout, unspecified, without tophus (tophi) (principal); Z11.3 Encounter for screening for infections with a predominantly sexual mode of transmission
CPT/HCPCS: 36415; 80053; 80061; 82306; 83036; 84443; 85025; 86592; 87389; 87522

== ENCOUNTER 2024-10-23 20:21 | Emergency (ER) | payer OTHER, SELFPAY ==
--- NOTE | ~2024-10-23 | CT_ITS ---
CLINICAL HISTORY: r o DVT and infection abscess osteo CT of the left arm with IV contrast. Comparison: None Findings: Poor soft tissue contrast limits evaluation. Extensive subcutaneous fat stranding or skin thickening is in the left upper extremity, more severe towards the antecubital fossa. An ill-defined fluid collection extends to the superficial soft tissues with extensive ill-defined fluid collection throughout the forearm. Fluid collection appears to involve the regional musculature. No definite fracture or acute osseous abnormality identified. No florid erosive changes are seen. Impression: Large ill-defined fluid collection in the subcutaneous soft tissues as well as extending into the deeper musculature of the left arm, as above. Possible cellulitis, phlegmon and myositis. Please correlate clinically. No osseous erosive changes are identified, although radiographic correlation is recommended. This document has been electronically signed by: Paul Patel MD, PHD on 10/24/2024 00:12:06
[2024-10-23 20:29] VITALS: BP 140/73; PULSE 77; RESP 18; TEMP 37; O2SAT 98; BMI 26.1
[2024-10-23 20:56] LABS: MANUAL DIFF FLAG NO
[2024-10-23 20:57] LABS: Basophils Percent Auto 0.4 % (0-2); Eosinophils Absolute Auto 0.1 X10*3/uL (0.0-0.4); Eosinophils Percent Auto 0.7 % (0-4); Hematocrit 31.2 % (42.0-52.0); Hemoglobin 10.7 g/dl (14.0-18.0); Imm Gran Abs Auto 0.07 X10*3/uL (0.00-0.03); Imm Gran Pct Auto 0.6 % (0.0-0.4); Lymphocytes Absolute Auto 1.5 X10*3/uL (1.2-4.9); Lymphocytes Percent Auto 13.8 % (20-40); Mean Corpuscular HGB Conc 34.3 g/dl (31.0-36.0); Mean Corpuscular Volume 87.4 fL (80.0-98.0); Mean Platelet Volume 9.7 fL (9.4-12.4); Monocytes Absolute Auto 1.3 X10*3/uL (0.1-1.2); Monocytes Percent Auto 11.6 % (2-11); Neutrophils Absolute Auto 8.1 x10*3/uL (2.0-8.3); Neutrophils Percent Auto 72.9 % (45-73); Platelet Count 327 X10*3/uL (160-400); Red Blood Count 3.57 X10*6/uL (4.60-5.80); Red Cell Distribution Width 11.9 % (11.0-16.0); White Blood Count 11.1 X10*3/uL (4.8-10.8)
[2024-10-23 21:14] LABS: Alanine Aminotransferase 25 U/L (0-40); Albumin Level 3.5 g/dL (3.5-5.0); Alkaline Phosphatase 49 U/L (39-117); Anion Gap 15 (12-20); Aspartate Amino Transferase 36 U/L (5-37); Bilirubin Total 1.1 mg/dL (0.0-1.0); Blood Urea Nitrogen 24 mg/dL (9-16); C Reactive Protein 28.32 mg/dL (< or = 0.50); Carbon Dioxide 25 mmol/L (22-29); Chloride 99 mmol/L (96-108); Estimated Glomerular Filt Rate > 60; Glucose Random 100 mg/dL (60-115); Potassium 3.9 mmol/L (3.3-5.1); Sodium 135 mmol/L (135-145); Total Protein 7.7 g/dL (6.5-8.0)
--- OUTSIDE RECORDS SUMMARY | 2024-10-23 21:19 | XMS_ITS | Clinical Summary ---
Author Organization [facility] [employer] Address [address] [place] [address] Care Team Providers Care Director Of Recreation Therapy Name Role Phone Scott Smith MD Primary Care Provide r Allergies No known active allergies Active Problems Problem Noted Date Diagnosed Date Decreased hearing of right ear 07/01/2024 Assessment & Plan (07/01/2024 2:50 PM EST): Patient previously evaluated by Dr. 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 He stated that if the problem persisted he was going to proceed with a CT of the head.This was not done. He ended up having a brain MRI for her neurologic complaints, that was normal Erectile dysfunction 07/01/2024 Assessment & Plan (07/01/2024 2:53 PM EST): Pt is here for a f/u Previously pt c/o new onset of ED. At the time patient was going through a divorce and felt somewhat depressed. Initial work up included FBS, TSH, testosterone Free and Total, Prolactin, FSH and LH ALL came back within normal limits discussed need to minimize alcohol, eat healthier and loose weight Pt was seen by Urology who recommended to consider topical testosterone treatment , pt declined he wanted to loose weight and exercise instead Repeat levels showed improvement, pt reported his Erections had improved as well History of tremor 07/01/2024 Assessment & Plan (07/01/2024 2:54 PM EST): Patient with previous c/o B/L UE tremor that improved w/ distraction and worsened w/ stress. Pt was evaluated previously at our [facility] where his neuro exam was WNL 03/27/21. 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 MRI of his brain to r/o MS given his previous c/o associated tremor was completely normal Bilateral impacted cerumen 07/01/2024 Assessment & Plan (07/01/2024 3:21 PM EST): Debrox Acute pain of right knee 05/14/2024 Assessment & Plan (05/14/2024 4:42 PM EDT): Now much better, we will observe for now if pain returns plan is for possible MRI/orthopedic referral Routine physical examination 05/14/2024 Assessment & Plan (07/01/2024 2:57 PM EST): Exam today within normal limits Acute sinusitis 05/07/2024 Bennett's palsy 05/07/2024 COVID-19 05/07/2024 Otitis media 05/07/2024 Chronic gout without tophus 01/23/2023 Assessment & Plan (07/01/2024 2:50 PM EST): No recent flare ups Uric Acid high, in the past will repeat level today Discussed dietary and lifestyle changes Continue Allopurinol 100 mg po daily Anxiety 01/15/2022 Overweight (BMI 25.0-29.9) 01/15/2022 Assessment & Plan (07/01/2024 2:49 PM EST): Patient has been counseled and educated about diet and exercise. Personal goal of weight loss discussed Gout 01/15/2022 Encounters Date Type Department Care Team Description 10/23/2024 Orders Only GENERIC EXTERNAL DATA DEPARTMENT Provider, Generic External Data from Last 3 Months Immunizations Name Administration Dates Next Due Influenza injectable quadrivalent preservative f ree 05/26/2018 Tdap 05/26/2018 Social History Tobacco Use Types Packs/Day Years Used Date Smoking Tobacco: Never Passive Smoke Exposure: Never Smokeless Tobacco: Never Tobacco Cessation:Counseling Given: Not Answered Alcohol Use Standard Drinks/Week Comments Never 0 (1 standard drink = 0.6 oz pur e alcohol) Depression Answer Date Recorded Patient Health Questionnaire-9 Score 0 05/14/2024 Patient Health Questionnaire-9 Score 0 05/14/2024 Last PHQ-9: Questionnaire Data Not on file 0 05/14/2024 Housing Stability Answer Date Recorded What is your housing situation today? I have grey khan 05/14/[address] you li ve. Do you have problems with any of the following? None of the above 05/14/2024 Food Insecurity Answer Date Recorded Within the past 12 months, y ou worried that your food would run out before you got money to buy more: Never True 05/14/2024 Within the past 12 months,th e food you bought just didn't last and you didn't have enough money to get more: Never True Transportation Answer Date Recorded In the past 12 months, has l ack of transportation kept you from medical appts, meetings, work or from getting things needed for daily living? No 05/14/2024 Utilities Answer Date Recorded In the past 12 months, has t he electric, gas, oil or water company threatened to shut off services in your home? No 05/14/2024 Depression Answer Date Recorded Patient Health Questionnaire-2 Score 0 05/14/2024 Internet Access Answer Date Recorded Internet Access Q1 No 05/14/2024 Internet Access Q2 I do not want or need it 04/19 Sex and Gender Information Value Date Recorded Sex Assigned at Male 06/17/2022 10:14 AM EDT Legal Sex Male 10:14 AM EDT Gender Identity Male 06/17/2022 10:14 AM EDT Sexual Orientation Straight 06/17/2022 10 :14 AM EDT Last Filed Vital Signs Vital Sign Reading Time Taken Comments Blood Pressure 124/71 07/01/2024 2:41 PM EST Pulse 70 07/01/2024 2:41 PM EST Temperature 36.3 ??C (97.3 ??F) 07/01/2024 2:41 PM ES T Respiratory Rate 20 07/01/2024 2:41 PM EST Oxygen Saturation 98% 07/01/2024 2:41 PM EST Inhaled Oxygen Concentration - - Weight 70.9 kg (156 lb 6.4 oz) 07/01/2024 2:41 P M EST Height 162.6 cm (5' 4 ) 07/01/2024 2:41 PM EST Body Mass Index 26.85 07/01/2024 2:41 PM EST Plan of Treatment Upcoming Encounters Date Type Department Care Team (Late st Contact Info) Description 01/04/2025 3:00 PM EDT Office Visit [facility] [address] [place] [address] Scott Smith MD [address], [place] [phone] Health Maintenance Due Date Last Done Comments Family Planning (PISQ) 2001 Hepatitis B Vaccines (1 of 3 - 19+ 3-dose series) 2005 COVID-19 Vaccine ( - 2023-2 5 season) 2024 Influenza Vaccine (#1) 2024 05/26/2018 Alcohol/Substance Use Screening 05/14/2025 05/14/2024 Depression Screening 05/14/2025 05/14/2024, 05/14/2024 SDOH Screening 05/14/2025 05/14/2024 Tobacco Screening 07/01/2025 07/01/2024 DTaP/Tdap/Td Vaccines (2 - T d or Tdap) 05/26/2028 05/26/2018 Lipid Panel 05/14/2029 05/14/2024 Zoster Vaccines (1 of 2) 2036 RSV Patients and Patients Aged 60 years or older (1 - 1-dose 75+ series) 2061 HIV Screening Completed 05/14/2024 Hepatitis C Screening Completed 05/14/2024 HIB Vaccines Aged Out No longer eligi ble based on patient's age to complete this topic HPV Vaccines Aged Out No longer eligi ble based on patient's age to complete this topic Hepatitis A Vaccines Aged Out No long er eligible based on patient's age to complete this topic IPV Vaccines Aged Out No longer eligi ble based on patient's age to complete this topic Meningococcal Vaccine Aged Out No hector liana eligible based on patient's age to complete this topic Pneumococcal Vaccine: Pediatrics (0 to 5 Years) and At-Risk Patients (6 to 49) Years) Aged Out No longer eligible b ased on patient's age to complete this topic RSV under 20 months Aged Out No longe r eligible based on patient's age to complete this topic Rotavirus Vaccines Aged Out No longer eligible based on patient's age to complete this topic Procedures Procedure Name Priority Date/Time Associated Diagnosis Comments CBC WITH AUTO DIFFERENTIAL Routine 10/23/2024 8:52 PM EST C-REACTIVE PROTEIN Routine 10/23/2024 8: 52 PM EST MAGNESIUM Routine 10/23/2024 8:52 PM EST COMPREHENSIVE METABOLIC PANEL Routine 10/23/2024 8:52 PM EST HEPATITIS C VIRAL RNA, QUANTITATIVE, REAL-TIME PCR Routine 05/14/2024 4:43 PM EDT Screening examination for STI HIV 1/2 ANTIGEN/ANTIBODY, FOURTH GENERATION W/RFL Routine 05/14/2024 4:43 PM EDT Chronic gout without tophus, unspecified cause, unspecified site LIPID PANEL, STANDARD Routine 05/14/2024 4:43 PM EDT Chronic gout without tophus, unspecified cause, unspecified site from Last 3 Months or Most Recently Relevant to Health Maintenance Results * (ABNORMAL) CBC auto differential (10/23/2024 8:52 PM EST) White Blood Count 11.1(H) 4.8 - 10.8 X10*3/uL [facility] Red Blood Count 3.57(L) 4.60 - 5.80 X10*6/uL [facility] Hemoglobin 10.7(L) 14.0 - 18.0 g/dl [facility] Hematocrit 31.2(L) 42.0 - 52.0 % [facility] Mean Corpuscular Volume 87.4 80.0 - 98.0 fL [facility] Mean Corpuscular Hemoglobin 30.0 27.0 - 33.0 pg [facility] Mean Corpuscular HGB Conc 34.3 31.0 - 36.0 g/dl [facility] Red Cell Distribution Width 11.9 11.0 - 16.0 % [facility] Platelet Count 327 160 - 400 X10*3/uL [facility] Mean Platelet Volume 9.7 9.4 - 12.4 fL [facility] Neutrophils Percent Auto 72.9 45 - 73 % [facility] Imm Gran Pct Auto 0.6(H) 0.0 - 0.4 % [facility] Lymphocytes Percent Auto 13.8(L) 20 - 40 % [facility] Monocytes Percent Auto 11.6(H) 2 - 11 % [facility] Eosinophils Percent Auto 0.7 0 - 4 % [facility] Basophils Percent Auto 0.4 0 - 2 % [facility] NRBC Pct Auto 0.0 0.0 - 0.2 /100WBC [facility] Neutrophils Absolute Auto 8.1 2.0 - 8.3 x10*3/uL [facility] Imm Gran Abs Auto 0.07(H) 0.00 - 0.03 X10*3/uL [facility] Lymphocytes Absolute Auto 1.5 1.2 - 4.9 X10*3/uL [facility] Monocytes Absolute Auto 1.3(H) 0.1 - 1.2 X10*3/uL [facility] Eosinophils Absolute Auto 0.1 0.0 - 0.4 X10*3/uL [facility] Basophils Absolute Auto 0.0 0.0 - 0.2 X10*3/uL [facility] NRBC Abs Auto 0.000 0.0 - 0.012 X10*3/uL [facility] 10/23/2024 8:52 PM EST 10/23/2024 8:55 PM EST us Generic External Data Provider LAB BLOOD ORDERAB LES Final Result [facility] [address] [place] [phone] * (ABNORMAL) C-reactive Protein (10/23/2024 8:52 PM EST) [facility] C Reactive Protein 28.32(H) < or = 0.50 mg/dL [facility] 10/23/2024 8:52 PM EST 10/23/2024 8:55 PM EST Generic External Data Provider LAB BLOOD ORDERAB LES Final Result Performing Organization Address [facility] Co de Phone Number [facility] [address] [place] [phone] * Magnesium (10/23/2024 8:52 PM EST) [facility] Magnesium 2.0 1.6 - 2.6 mg/dL [facility] 10/23/2024 8:52 PM EST 10/23/2024 8:55 PM EST [employer] External Data Provider LAB BLOOD ORDERAB LES Final Result Performing Organization Address [facility] [[email or web address]] de Phone Number [facility] [address] [place] [phone] * (ABNORMAL) Comprehensive Metabolic Panel (10/23/2024 8:52 PM EST) [facility] Sodium 135 135 - 145 mmol/L [facility] Potassium 3.9 3.3 - 5.1 mmol/L [facility] Chloride 99 96 - 108 mmol/L [facility] Carbon Dioxide 25 22 - 29 mmol/L [facility] Anion Gap 15 12 - 20 [facility] Urea Nitrogen (BUN) 24(H) 9 - 16 mg/dL [facility] Creatinine, Serum 1.31 0.5 - 1.4 mg/dL [facility] Creatinine Clr Calc Pharmacy 64.0 [facility] Comment:eGFR (calculated fro m the MDRD study equation) and eCrCl(calculated from the Cockcroft-Gault equation) are based ondifferent parameters and may not yield comparable results.If eCrCl result is absurd, please check patient'sheight/weight. Estimated Glomerular Filt Rate >60 [facility] Comment:Chronic Kidney Disea se: Estimated GFR < 60 mL/min/[id number] Kidney Disease: Estimated GFR < 15 mL/min/1.73m2 Glucose 100 60 - 115 mg/dL [facility] Calcium 9.0 8.4 - 10.2 mg/dL [facility] Bilirubin, Total 1.1(H) 0.0 - 1.0 mg/dL [facility] Aspartate Amino Transferase 36 5 - 37 U/L [facility] Alanine Aminotransferase 25 0 - 40 U/L [facility] Total Protein 7.7 6.5 - 8.0 g/dL [facility] Albumin Level 3.5 3.5 - 5.0 g/dL [facility] Alkaline Phosphatase 49 39 - 117 U/L [facility] 10/23/2024 8:52 PM EST 10/23/2024 8:55 PM EST us Generic External Data Provider LAB BLOOD ORDERAB LES Final Result [facility] [address] [place] [phone] * Hepatitis C Viral RNA, Quantitative, Real-Time PCR (05/14/2024 4:43 PM EDT) Hepatitis C Viral Load <15 NOT DETECTED NOT DETECTED IU/mL [facility] HCV Log PCR <1.18 NOT DETECTED NOT DETECTED Log IU/mL [facility] Comment:For additional infor mation, please refer [email or web address](This link is being provided for informational/educational purposes only.)THIS TEST WAS PERFORMED AT:[employer] [place] [phone] PEPE MD Blood Venous blood specimen / Unknown 05/14/2024 4:43 PM EDT 05/14/2024 5:50 PM EDT Pennie Poe MD LAB BLOOD ORDERABLES Final Result Performing Organization Address [facility] Co de Phone Number [facility] [address] [place] [phone] * HIV-1/2 Antigen and Antibodies, Fourth Generation, with Reflexes (05/14/2024 4:43 PM EDT) Pathologist [facility] HIV AB/AG Nonreactive Nonreactive [facility] Comment:HIV-1 p24 Ag and/or HIV-1/HIV-2 Ab not detected.A test result that is nonreactive does not exclude thepossibility of exposure to or infection with HIV-1 and/orHIV-2. Nonreactive results in this assay for individualswith prior exposure to HIV-1 and/or HIV-2 may be due toantigen and antibody levels that are below the limit ofdetection of this assay.The [employer] HIV Ag/Ab Combo assay result andsupplemental assay results should be interpreted inconjunction with the patient's clinical presentation,history and other laboratory results. If the results areinconsistent with clinical evidence, additional testing issuggested to confirm the result. Blood Venous blood specimen / Unknown 05/14/2024 4:43 PM EDT 05/14/2024 5:50 PM EDT us Pennie Poe MD LAB BLOOD ORDERABLES Final Result Performing Organization Address [facility]/ZIP Co de Phone Number [facility] [address] [place] [phone] * Lipid Panel, Standard (05/14/2024 4:43 PM EDT) Triglycerides 35 <150 mg/dL [facility] Comment:Desirable Triglyceri de: less than 150 mg/dLBorderline High Triglyceride 150-199 mg/dLHigh Triglyceride: 200-499 mg/dLVery High Triglyceride: greater than or equal to 5OO mg/dL Cholesterol 106 <200 mg/dL [facility] Comment:Desirable Cholestero l: less than 200 mg/dLBorderline High Cholesterol: 200-239 mg/dLHigh Cholesterol: greater than 239 mg/dL LDL Cholesterol Calculated 48 <100 mg/dL [facility] Comment:Desirable LDL: less than 100 mg/dLNear Optimal/Above Optimal LDL: 110- 129 mg/dLBorderline High LDL: 130-159 mg/dLHigh LDL: 160-189 mg/dLVery High LDL: greater than or equal to 190 mg/dL HDL Cholesterol 51 >40 mg/dL [facility] Comment:Desirable HDL: great er than 40 mg/dL Note: This HDL assay may give artificially low results in patients with liver disease. Blood Venous blood specimen / Unknown 05/14/2024 4:43 PM EDT 05/14/2024 5:50 PM EDT Pennie Poe MD LAB BLOOD ORDERABLES Final Result [facility] [address] [place] [address] [phone] from Last 3 Months or Most Recently Relevant to Health Maintenance Insurance [employer] [facility] C3 Care Teams Director Of Recreation Therapy Relationship Specialty Start Date End Date Scott Smith MD [address] [place] [phone] PCP - General Internal Medicine 08/24/19
--- OUTSIDE RECORDS SUMMARY | 2024-10-23 21:19 | XMS_ITS | Encounter Summary ---
Author Organization [employer] Address [address] [facility] [address] [place] [address] Care Team Providers Care Proposal Director Name Role Phone Scott Smith MD Primary Care Provide r Encounter Details Date Type Department Care Team ([facility] st Contact Info) Description 10/23/2024 Orders Only GENERIC EXTERNAL DATA DEPARTMENT Provider, Generic External Data Social History Tobacco Use Types Packs/Day Years Used Date Smoking Tobacco: Never Passive Smoke Exposure: Never Smokeless Tobacco: Never Alcohol Use Standard Drinks/Week Comments Never 0 [...] Orientation Straight 06/17/2022 10 :14 AM EDT documented as of this encounter Plan of Treatment Upcoming Encounters Date Type Department Care Team (Late st Contact Info) Description 01/04/2025 3:00 PM EDT Office Visit [facility] MEDICINE [address] [place] [phone] Scott Smith MD [address] [place] [phone] documented as of this encounter Procedures Procedure Name Priority Date/Time Associated Diagnosis Comments CBC WITH AUTO DIFFERENTIAL Routine 10/23/2024 8:52 PM EST C-REACTIVE PROTEIN Routine 10/23/2024 8: 52 PM EST MAGNESIUM Routine 10/23/2024 8:52 PM EST COMPREHENSIVE METABOLIC PANEL Routine 10/23/2024 8:52 PM EST documented in this encounter Results * (ABNORMAL) CBC auto differential (10/23/2024 8:52 PM EST) White Blood Count 11.1(H) 4.8 - 10.8 X10*3/uL [facility] Red Blood Count 3.57(L) 4.60 - 5.80 X10*6/uL [facility] Hemoglobin 10.7(L) 14.0 - 18.0 g/dl [facility] Hematocrit 31.2(L) 42.0 - 52.0 % [facility] Mean Corpuscular Volume 87.4 80.0 - 98.0 fL [facility] Mean Corpuscular Hemoglobin 30.0 27.0 - 33.0 pg [facility] Mean Corpuscular HGB Conc 34.3 31.0 - 36.0 g/dl [facility] Red Cell Distribution Width 11.9 11.0 - 16.0 % [facility] Platelet Count 327 160 - 400 X10*3/uL [facility] Mean Platelet Volume 9.7 9.4 - 12.4 fL [facility] Neutrophils Percent Auto 72.9 45 - 73 % [facility] Imm Gran Pct Auto 0.6(H) 0.0 - 0.4 % [facility] Lymphocytes Percent Auto 13.8(L) 20 - 40 % [facility] Monocytes Percent Auto 11.6(H) 2 - 11 % [facility] Eosinophils Percent Auto 0.7 0 - 4 % [facility] Basophils Percent Auto 0.4 0 - 2 % [facility] NRBC Pct Auto 0.0 0.0 - 0.2 /100WBC [facility] Neutrophils Absolute Auto 8.1 2.0 - 8.3 x10*3/uL [facility] Imm Gran Abs Auto 0.07(H) 0.00 - 0.03 X10*3/uL [facility] Lymphocytes Absolute Auto 1.5 1.2 - 4.9 X10*3/uL [facility] Monocytes Absolute Auto 1.3(H) 0.1 - 1.2 X10*3/uL [facility] Eosinophils Absolute Auto 0.1 0.0 - 0.4 X10*3/uL [facility] Basophils Absolute Auto 0.0 0.0 - 0.2 X10*3/uL [facility] NRBC Abs Auto 0.000 0.0 - 0.012 X10*3/uL [facility] 10/23/2024 8:52 PM EST 10/23/2024 8:55 PM EST us Generic External Data Provider LAB BLOOD ORDERAB LES Final Result [facility] [address] [place] [phone] * (ABNORMAL) C-reactive Protein (10/23/2024 8:52 PM EST) [facility] C Reactive Protein 28.32(H) < or = 0.50 mg/dL [facility] 10/23/2024 8:52 PM EST 10/23/2024 8:55 PM EST Generic External Data Provider LAB BLOOD ORDERAB LES Final Result Performing Organization Address [facility] [address]/ZIP Co de Phone Number [facility] [address] [place] [phone] * Magnesium (10/23/2024 8:52 PM EST) [facility] Magnesium 2.0 1.6 - 2.6 mg/dL [facility] 10/23/2024 8:52 PM EST 10/23/2024 8:55 PM EST Q1 Labs External Data Provider LAB BLOOD ORDERAB LES Final Result Performing Organization Address [facility] [address]/[facility] Co de Phone Number [facility] [address] [place] [phone] * (ABNORMAL) Comprehensive Metabolic Panel (10/23/2024 8:52 PM EST) [facility] Sodium 135 135 - 145 mmol/L [facility] Potassium 3.9 3.3 - 5.1 mmol/L [facility] Chloride 99 96 - 108 mmol/L [facility] Carbon Dioxide 25 22 - 29 mmol/L [facility] Anion Gap 15 12 - 20 [facility] Urea Nitrogen (BUN) 24(H) 9 - 16 mg/dL [facility] Creatinine, Serum 1.31 0.5 - 1.4 mg/dL [facility] Creatinine Clr Calc Pharmacy 64.0 [facility] Comment:eGFR (calculated fro m the MDRD study equation) and eCrCl(calculated from the Cockcroft-Gault equation) are based ondifferent parameters and may not yield comparable results.If eCrCl result is absurd, please check patient'sheight/weight. Estimated Glomerular Filt Rate >60 [facility] Comment:Chronic Kidney Disea se: Estimated GFR < 60 mL/min/1.82s2Sgdedo Kidney Disease: Estimated GFR < 15 mL/min/1.73m2 Glucose 100 60 - 115 mg/dL [facility] Calcium 9.0 8.4 - 10.2 mg/dL [facility] Bilirubin, Total 1.1(H) 0.0 - 1.0 mg/dL [facility] Aspartate Amino Transferase 36 5 - 37 U/L [facility] Alanine Aminotransferase 25 0 - 40 U/L [facility] Total Protein 7.7 6.5 - 8.0 g/dL [facility] Albumin Level 3.5 3.5 - 5.0 g/dL [facility] Alkaline Phosphatase 49 39 - 117 U/L [facility] 10/23/2024 8:52 PM EST 10/23/2024 8:55 PM EST us Generic External Data Provider LAB BLOOD ORDERAB LES Final Result [facility] [address] [place] [phone] documented in this encounter Visit Diagnoses Not on filedocumented in this encounter Additional Health Concerns Assessment Noted Time PHQ-9 Depression Total Score: 0 05/14/20 24 3:35 PM EDT documented as of this encounter Care Teams Proposal Director Relationship Specialty Start Date End Date Scott Smith MD [address] [place] [phone] PCP - General Internal Medicine 08/24/19 documented as of this encounter
[2024-10-23 21:35] LABS: Erythrocyte Sedimentation Rate 100 MM/HR (0-15)
[2024-10-23] MEDS: Morphine Sulfate 10 MG/ML CARTRIDGE IVPUSH (22:04)
[2024-10-23] MEDS: iohexoL 350 MG/ML 100 ML INFUS..BTL 85 ML IV (22:32)
[2024-10-24 01:11] VITALS: BP 108/53; PULSE 73; RESP 16; TEMP 37; O2SAT 98
[2024-10-24] MEDS: Piperacillin Sodium/Tazobactam 3.375 GM in 0.9 % Sodium Chloride 50 ML IV (01:25)
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
[2024-10-24] MEDS: vancomycin HCL 1,500 MG in 0.9 % Sodium Chloride 500 ML 333.33 MG IV (01:50)
--- NOTE | 2024-10-24 01:50 | PC.NURSE ---
pt medicated according to lauren per [facility] do not need blood cultures prior to antibiotics
[2024-10-24] MEDS: Morphine Sulfate 10 MG/ML CARTRIDGE IVPUSH (03:23)
--- NOTE | 2024-10-24 03:47 | PC.NURSE ---
this rn attempted x3 to give nurse to nurse report on pt prior to transfer to [facility]
--- NOTE | 2024-10-24 04:02 | PC.NURSE ---
nurse to nurse report given to danna carter at [facility] awaiting transport to [facility]
[2024-10-24 05:20] VITALS: BP 108/53; PULSE 73; RESP 16; TEMP 37; O2SAT 98
== END 2024-10-24 05:30 | disposition short-term general hospital (02) ==
PROVIDERS: Physician Assistant Medical; Emergency Provider Emergency Medicine Emergency Medical Services; PCP Internal Medicine
DX: Z04.1 Encounter for examination and observation following transport accident (principal); Z04.2 Encounter for examination and observation following work accident; M60.022 Infective myositis, left upper arm; M79.602 Pain in left arm; Z79.899 Other long term (current) drug therapy
CPT/HCPCS: 36415; 73201; 80053; 83735; 85025; 85652; 86140; 96365; 96366; 96367; 96374; 96376; 99285; J2270; J2543; J3371; Q9967

== ENCOUNTER → 2024-10-23 22:21 | Outpatient (BNV) | payer OTHER, SELFPAY | PROVIDERS: Emergency Provider Emergency Medicine Emergency Medical Services; PCP Internal Medicine; Visit Provider General Practice | DX: M86.9 Osteomyelitis, unspecified (principal) | CPT/HCPCS: 73201 ==

== ENCOUNTER 2024-11-13 09:56 | Emergency (ER) | payer MEDICAID, SELFPAY ==
[2024-11-13 10:04] VITALS: BP 131/72; PULSE 77; RESP 18; TEMP 37; O2SAT 100; BMI 25.0
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
[2024-11-13 10:28] LABS: MANUAL DIFF FLAG NO
[2024-11-13 10:42] LABS: Basophils Percent Auto 0.6 % (0-2); Eosinophils Absolute Auto 0.2 X10*3/uL (0.0-0.4); Hematocrit 33.6 % (42.0-52.0); Imm Gran Abs Auto 0.01 X10*3/uL (0.00-0.03); Imm Gran Pct Auto 0.2 % (0.0-0.4); Lymphocytes Absolute Auto 1.7 X10*3/uL (1.2-4.9); Lymphocytes Percent Auto 34.6 % (20-40); Mean Corpuscular HGB Conc 32.7 g/dl (31.0-36.0); Mean Corpuscular Hemoglobin 29.3 pg (27.0-33.0); Mean Corpuscular Volume 89.4 fL (80.0-98.0); Mean Platelet Volume 9.7 fL (9.4-12.4); Monocytes Absolute Auto 0.3 X10*3/uL (0.1-1.2); Monocytes Percent Auto 6.7 % (2-11); Neutrophils Absolute Auto 2.7 x10*3/uL (2.0-8.3); Neutrophils Percent Auto 54.9 % (45-73); Platelet Count 448 X10*3/uL (160-400); Red Blood Count 3.76 X10*6/uL (4.60-5.80); Red Cell Distribution Width 12.6 % (11.0-16.0); White Blood Count 4.9 X10*3/uL (4.8-10.8)
[2024-11-13 10:49] LABS: Alanine Aminotransferase 26 U/L (0-40); Albumin Level 3.6 g/dL (3.5-5.0); Alkaline Phosphatase 60 U/L (39-117); Anion Gap 11 (12-20); Aspartate Amino Transferase 18 U/L (5-37); Bilirubin Total 0.4 mg/dL (0.0-1.0); Blood Urea Nitrogen 23 mg/dL (9-16); Calcium 9.6 mg/dL (8.4-10.2); Carbon Dioxide 26 mmol/L (22-29); Chloride 107 mmol/L (96-108); Creatinine Clr Calc Pharmacy 88.2; Estimated Glomerular Filt Rate > 60; Glucose Random 63 mg/dL (60-115); Potassium 4.4 mmol/L (3.3-5.1); Sodium 140 mmol/L (135-145); Total Protein 7.1 g/dL (6.5-8.0); Uric Acid 6.2 mg/dL (3.4-7.0)
[2024-11-13] MEDS: predniSONE 10 MG TABLET 50 MG PO (11:08)
[2024-11-13 11:10] VITALS: BP 131/72; PULSE 77; RESP 18; TEMP 37; O2SAT 100
== END 2024-11-13 11:10 | disposition home or self-care (01) ==
PROVIDERS: Physician Assistant Medical; Emergency Provider Internal Medicine; PCP Internal Medicine
DX: M10.071 Idiopathic gout, right ankle and foot (principal)
CPT/HCPCS: 36415; 80053; 84550; 85025; 99282; 99283

== ENCOUNTER 2024-12-10 16:55 | Emergency (ER) | payer MEDICAID, SELFPAY ==
[2024-12-10 16:58] VITALS: BP 125/81; PULSE 86; RESP 18; TEMP 36.4; O2SAT 98; BMI 25.3
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
[2024-12-10 17:08] VITALS: BP 125/81; PULSE 86; RESP 18; TEMP 36.4; O2SAT 98
== END 2024-12-10 17:10 | disposition home or self-care (01) ==
PROVIDERS: Emergency Provider Emergency Medicine; PCP Internal Medicine
DX: M10.9 Gout, unspecified (principal); M79.674 Pain in right toe(s); Z79.899 Other long term (current) drug therapy
CPT/HCPCS: 99282; 99283

== ENCOUNTER 2025-01-10 19:58 | Emergency (ER) | payer MEDICAID, SELFPAY ==
[2025-01-10 20:00] VITALS: BP 136/69; PULSE 81; RESP 14; TEMP 36.8; O2SAT 100; BMI 27.2
--- NOTE | 2025-01-10 20:15 | ED_ITS ---
HPI - General Adult General Chief complaint: General Medical Stated complaint: gout Time Seen by Provider: 01/10/25 20:13 Source: patient, RN notes reviewed and old records reviewed Mode of arrival: ambulatory Limitations: no limitations History of Present Illness ED Provider: Cuco HPI narrative: 39-year-old male presents for evaluation of right great toe pain. He believes he has a having a gout flare. He has a long history of gout and has been out of his colchicine for the last 3 weeks His pain is 8/10, worse with walking. Denies any trauma to the area, no fevers or chills Related Data Previous Rx's ?Medication ?Instructions ?Recorded amoxicillin 500 mg-potassium 1 tab PO BID #14 tabs 01/13/21 clavulanate 125 mg tablet (Augmentin) azithromycin 500 mg tablet 500 mg PO DAILY 5 days #5 tabs 01/18/21 valacyclovir 1 gram tablet 1,000 mg PO TID 10 days #30 tabs 01/18/21 (Valtrex) artificial tears(hypromellose) 0.5 2 drp ophthalmic (eye) Q2-4H PRN 01/20/21 % eye drops dry eye(s) #15 mL prednisone 20 mg tablet 20 mg PO .COMPLEX #18 tabs 03/19/21 sulfamethoxazole 800 1 tab PO BID 7 days #14 tabs 03/19/21 mg-trimethoprim 160 mg tablet hydroxyzine HCl 25 mg tablet 25 mg PO TID 3 days #9 tabs 03/27/21 allopurinol 100 mg tablet 50 mg (1/2 x 100 mg) PO DAILY #14 02/16/22 tabs amoxicillin 875 mg-potassium 1 tab PO BID 7 days #14 tabs 08/15/22 clavulanate 125 mg tablet cyclobenzaprine 5 mg tablet 5 mg PO BEDTIME PRN muscle spasm 09/21/22 #4 tabs allopurinol 100 mg tablet 100 mg PO DAILY #14 tabs 12/14/22 ibuprofen 600 mg tablet 600 mg PO TID PRN fever or pain 12/14/22 #20 tabs prednisone 50 mg tablet 50 mg PO DAILY #5 tabs 12/14/22 allopurinol 200 mg tablet 200 mg PO DAILY #30 tabs 12/31/22 colchicine 0.6 mg tablet 0.6 mg PO BID #30 tabs 12/31/22 indomethacin 50 mg capsule 50 mg PO QID #30 caps 12/31/22 prednisone 20 mg tablet 40 mg (2 x 20 mg) PO DAILY #14 tabs 12/31/22 naproxen 500 mg tablet 500 mg PO BID PRN pain 7 days #14 03/09/23 tabs acetaminophen 500 mg tablet 500 mg PO Q6H PRN fever or pain 08/22/23 #20 tabs benzonatate 100 mg capsule 100 mg PO TID PRN cough #14 caps 08/22/23 nirmatrelvir 300 mg (150 mg See Rx Instructions PO .COMPLEX 08/25/23 x2)-ritonavir 100 mg tablet,dose #30 ea pack (Paxlovid) indomethacin 50 mg capsule 50 mg PO TID #20 caps 01/06/24 prednisone 50 mg tablet 50 mg PO DAILY 5 days #5 tabs 01/06/24 colchicine 0.6 mg tablet 0.6 mg PO BID #14 tabs 01/28/24 prednisone 50 mg tablet 50 mg PO DAILY #4 tabs 01/28/24 ketorolac 10 mg tablet 10 mg PO BID #7 tabs 04/29/24 amoxicillin 875 mg tablet 875 mg PO BID #14 tabs 05/09/24 naproxen 500 mg tablet (Naprosyn) 500 mg PO BID #20 tabs 05/09/24 colchicine 0.6 mg tablet 0.6 mg PO BID 7 days #14 tabs 11/13/24 prednisone 50 mg tablet 50 mg PO DAILY 4 days #4 tabs 11/13/24 colchicine 0.6 mg tablet 0.6 mg PO BID 7 days #14 tabs 12/10/24 colchicine 0.6 mg capsule 0.6 mg PO DAILY #30 caps 01/10/25 prednisone 20 mg tablet 40 mg (2 x 20 mg) PO DAILY #10 tabs 01/10/25 Allergies Allergy/AdvReac Type Severity Reaction Status Date / Time No Known Allergies Allergy Verified 01/10/25 20:02 [No Known Allergies*] Review of Systems Constitutional: Constitutional: Denies body ache(s), Denies chills and Denies fever(s) ENT: Denies vertigo Cardiovascular: Cardiovascular: Denies chest pain Respiratory: Respiratory: Denies cough Musculoskeletal: Musculoskeletal: Reports arthralgias and Reports joint swelling Integumentary/Breasts: Skin/Breast: Reports erythema and Denies wounds Neurologic: Denies vertigo PMFSH Past Medical History Medical History Bennett's palsy Gout Surgical History No history of previous surgery Social History Social History Alcohol intake: unknown Patient Tobacco Use Status: Never used Tobacco Substance Use Type: Marijuana Advance Directives: No Advance Directives Information Provided: No Do you have a plan to hurt others: No Plan Physical Exam ED Vital Signs: Vital Signs - 24 hr 01/10/25 20:00 Temperature 98.2 F Pulse Rate 81 Respiratory Rate 14 Blood Pressure 136/69 Pulse Oximetry 100 Oxygen Delivery Method Room Air BMI result Body Mass Index 27.2 Const General: healthy appearing, comfortable, no acute distress, alert and awake Nutritional Appearance: well nourished Orientation/consciousness: patient oriented x3 HENMT Head: Yes normocephalic and Yes atraumatic Eyes Eyelids: Yes eyelids normal Conjunctivae: conjunctivae normal Sclerae: sclerae normal Corneas: corneas normal Pupils: Equal, round and reactive pupils present EOM: EOMs intact bilaterally Neck Neck: Yes full ROM Resp Effort & Inspection: normal respiratory effort, able to speak in complete sentences and not labored Skin General skin exam: elasticity normal Neuro General: patient oriented x3 Cranial nerves: Yes Equal, round and reactive pupils present and Yes Bilaterally intact EOM present Cognition (Neuro): normal cognition Extrem Other: There is mild erythema to the medial aspect of the right great toe. No significant edema or deformity Medical Decision Making Medical Decision Making MDM Narrative: 39-year-old male presents for evaluation of right great toe pain. There was no injury, he has a long history of gout in his an often his colchicine. Given that there was no trauma, no signs of infection, treat as gout with prednisone a nd colchicine. Differential Diagnosis Differential Diagnoses: The differential diagnosis associated with the presentation includes Acute gouty arthritis Cellulitis Contusion Osteoarthritis Discharge Plan Discharge Clinical Impression: Gout Patient Disposition: Home, Self-Care Instructions: Low Purine Diet (ED), Gout (ED) Additional Instructions: Take prednisone and colchicine as directed for a gout flare. Follow-up with your primary doctor, return for new or worsening symptoms Prescriptions: New prednisone 20 mg tablet 40 mg PO DAILY Qty: 10 0RF colchicine 0.6 mg capsule 0.6 mg PO DAILY Qty: 30 0RF No Action amoxicillin-pot clavulanate [Augmentin] 500-125 mg tablet 1 tab PO BID Qty: 14 0RF artificial tears(hypromellose) 0.5 % drops 2 drp ophthalmic (eye) Q2-4H PRN (Reason: dry eye(s)) Qty: 15 0RF hydroxyzine HCl 25 mg tablet 25 mg PO TID 3 Days Qty: 9 0RF amoxicillin-pot clavulanate 875-125 mg tablet 1 tab PO BID 7 Days Qty: 14 0RF allopurinol 100 mg tablet 50 mg PO DAILY Qty: 14 0RF cyclobenzaprine 5 mg tablet 5 mg PO BEDTIME PRN (Reason: muscle spasm) Qty: 4 0RF allopurinol 200 mg tablet 200 mg PO DAILY Qty: 30 0RF colchicine 0.6 mg tablet 0.6 mg PO BID Qty: 30 0RF indomethacin 50 mg capsule 50 mg PO QID Qty: 30 0RF Rx Instructions: administer with food or milk prednisone 20 mg tablet 40 mg PO DAILY Qty: 14 0RF naproxen 500 mg tablet 500 mg PO BID PRN (Reason: pain) 7 Days Qty: 14 0RF acetaminophen 500 mg tablet 500 mg PO Q6H PRN (Reason: fever or pain) Qty: 20 0RF benzonatate 100 mg capsule 100 mg PO TID PRN (Reason: cough) Qty: 14 0RF Paxlovid 300 mg (150 mg x 2)-100 mg tablets,dose pack See Rx Instructions .ROUTE .COMPLEX Qty: 30 0RF Rx Instructions: take TWO 150 mg tablets of nirmatrelvir with ONE 100 mg tablet of ritonavir twice daily for 5 days prednisone 50 mg tablet 50 mg PO DAILY 5 Days Qty: 5 0RF indomethacin 50 mg capsule 50 mg PO TID Qty: 20 0RF Rx Instructions: administer with food or milk ketorolac 10 mg tablet 10 mg PO BID Qty: 7 0RF Rx Instructions: maximum total duration of 5 days from all oral, intranasal, or parenteral formulations amoxicillin 875 mg tablet 875 mg PO BID Qty: 14 0RF naproxen [Naprosyn] 500 mg tablet 500 mg PO BID Qty: 20 0RF colchicine 0.6 mg tablet 0.6 mg PO BID 7 Days Qty: 14 0RF ibuprofen 600 mg tablet 600 mg PO TID PRN (Reason: fever or pain) Qty: 20 0RF prednisone 50 mg tablet 50 mg PO DAILY Qty: 5 0RF allopurinol 100 mg tablet 100 mg PO DAILY Qty: 14 0RF colchicine 0.6 mg tablet 0.6 mg PO BID Qty: 14 0RF prednisone 50 mg tablet 50 mg PO DAILY Qty: 4 0RF colchicine 0.6 mg tablet 0.6 mg PO BID 7 Days Qty: 14 0RF prednisone 50 mg tablet 50 mg PO DAILY 4 Days Qty: 4 0RF azithromycin 500 mg tablet 500 mg PO DAILY 5 Days Qty: 5 0RF valacyclovir [Valtrex] 1 gram tablet 1,000 mg PO TID 10 Days Qty: 30 0RF prednisone 20 mg tablet 20 mg PO .COMPLEX Qty: 18 0RF Rx Instructions: 20 mg PO 3 p.o. daily for 3 days followed by 2 p.o. daily for 3 days followed by 1 p.o. daily for 3 days; sulfamethoxazole-trimethoprim 800-160 mg tablet 1 tab PO BID 7 Days Qty: 14 0RF Print Language: Hungarian
--- OUTSIDE RECORDS SUMMARY | 2025-01-10 20:19 | XMS_ITS | Encounter Summary ---
Author Organization [employer] Address [address] [facility] [address] [place] [address] Care Team Providers Care Manager Chemistry Name Role Phone Scott Smith MD Primary Care Provide r Reason for Visit * Reason Onset Date Comments Appointment Confirmation 01/05/2025 Encounter Details Date Type Department Care Team ([facility] Contact Info) Description 01/05/2025 Telephone [facility] MED[facility]INE [address] [place], [place] [phone] Scott Smith MD [address] [place], [place] [phone] Appointment Confirmation Social History Tobacco Use Types Packs/Day Years [...] AM EDT documented as of this encounter Miscellaneous Notes * Telephone Encounter - Erin Mckinnon MA - 01/05/2025 6:56 PM EDT Contacted pt in regards to appt change from 01/11/2025 to 01/12/2025 @3:15PM. Pt agreed to appt date/time. LB documented in this encounter Plan of Treatment Upcoming Encounters Date Type Department Care Team (Late st Contact Info) Description 01/12/2025 3:30 PM EDT Office Visit [facility] MED[facility]INE [address] [place] [address] Scott Smith MD [address] [place] [address] documented as of this encounter Visit Diagnoses Not on filedocumented in this encounter Additional Health Concerns Assessment Noted Time PHQ-9 Depression Total Score: 0 05/14/20 24 3:35 PM EDT documented as of this encounter Care Teams Manager Chemistry Relationship Specialty Start Date End Date Scott Smith MD [address] [place] [id number] PCP - General Internal Medicine 08/24/19 [facility] 11/06/24 documented as of this encounter
[2025-01-10 21:31] VITALS: BP 136/69; PULSE 81; RESP 14; TEMP 36.8; O2SAT 100
== END 2025-01-10 21:32 | disposition home or self-care (01) ==
PROVIDERS: Emergency Provider Emergency Medicine; PCP Internal Medicine
DX: M10.9 Gout, unspecified (principal); M79.674 Pain in right toe(s)
CPT/HCPCS: 99282; 99283

== ENCOUNTER 2025-02-10 13:59 | Outpatient (REF) | payer MEDICAID, SELFPAY ==
[2025-02-10 16:37] LABS: Uric Acid 8.6 mg/dL (3.4-7.0)
--- OUTSIDE RECORDS SUMMARY | 2025-02-10 16:53 | XMS_ITS | Encounter Summary ---
Author Organization [employer] Address [address] [facility] [address] [place] [address] Care Team Providers Care Sorting Cows Worker Name Role Phone Scott Smith MD Primary Care Provide r Encounter Details Date Type Department Care Team (Latest Contact Info) Description 02/10/2025 Travel Social History Tobacco Use Types Packs/Day Years Used Date Smoking Tobacco: Never Passive Smoke Exposure: Never Smokeless Tobacco: Never Alcohol Use Standard Drinks/Week Comments Yes 0 (1 standard drink = 0.6 oz pur e alcohol) occacionally Depression Answer Date Recorded Patient Health Questionnaire-9 Score 22 01/13/2025 Patient Health Questionnaire-9 Score 22 01/13/2025 Last PHQ-9: Questionnaire Data Not on file 0 01/13/2025 Housing Stability Answer Date Recorded What is [...] Answer Date Recorded Patient Health Questionnaire-2 Score 6 01/13/2025 Internet Access Answer Date Recorded Internet Access Q1 Yes 01/12/2025 Internet Access Q2 I do not want or need it 12/17 Sex and Gender Information Value Date Recorded Sex Assigned at Male 06/17/2022 10:14 AM EDT Legal Sex Male 10:14 AM EDT Gender Identity Male 06/17/2022 10:14 AM EDT Sexual Orientation Straight 06/17/2022 10 :14 AM EDT documented as of this encounter Plan of Treatment Upcoming Encounters Date Type Department Care Team (Late st Contact Info) Description 03/10/2025 11:00 AM EDT Office Visit [facility] MEDICINE [address] [place] [phone] Scott Smith MD [address] [place] [address] documented as of this encounter Visit Diagnoses Not on filedocumented in this encounter Additional Health Concerns Assessment Noted Time PHQ-9 Depression Total Score: 22 025 12:44 PM EDT documented as of this encounter Care Teams Sorting Cows Worker Relationship Specialty Start Date End Date Scott Smith MD [address] [place] [address] PCP - General Internal Medicine 08/24/19 [facility] 11/[facility]24 documented as of this encounter
[2025-02-11 08:32] LABS: HBS Num1 32.89 mIU/mL (0-7.99); HBc Num1 0.06 S/CO (0.00-0.79); HBsAGNum1 0.55 S/CO (0.00-0.99); HIV AB/AG Nonreactive (Nonreactive); HIV Num 1 0.06 S/CO (0.00-0.99); Hepatitis B Core Antibody Nonreactive (Nonreactive); Hepatitis B Surface Antigen Negative (Negative); ~HepC Num1 0.26 S/CO (0.00-0.79); ~Hepatitis B Surface Antibody REACTIVE (Nonreactive); ~Hepatitis C Antibody Nonreactive (Nonreactive)
[2025-02-11 08:43] LABS: Syphilis Screen Nonreactive (Nonreactive)
[2025-02-15 23:09] LABS: Testosterone, Free 61.3 pg/mL (35.0-155.0); Testosterone, Total 435 ng/dL (250-1100)
== END 2025-02-10 14:00 | disposition home or self-care (01) ==
LOC: HO.HHCL 13:59
PROVIDERS: PCP Internal Medicine; Visit Provider Internal Medicine
DX: Z11.4 Encounter for screening for human immunodeficiency virus [HIV] (principal); M1A.9XX0 Chronic gout, unspecified, without tophus (tophi); A64 Unspecified sexually transmitted disease; N52.9 Male erectile dysfunction, unspecified
CPT/HCPCS: 36415; 84402; 84403; 84550; 86704; 86706; 86780; 86803; 87340; 87389

== ENCOUNTER 2025-04-10 00:25 | Emergency (ER) | payer MEDICAID, SELFPAY ==
[2025-04-10 00:27] VITALS: BP 137/79; PULSE 75; RESP 20; TEMP 36.3; O2SAT 97; BMI 26.6
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
--- OUTSIDE RECORDS SUMMARY | 2025-04-10 01:10 | XMS_ITS ---
Author Name [facility] Organization Unknown Care Team Organization Name Specialty Phone Email Start Date End Da te [facility] 06/25/2022 04/05/2024
--- OUTSIDE RECORDS SUMMARY | 2025-04-10 01:10 | XMS_ITS | Clinical Summary ---
Author Organization [facility] Facility Address [address] [place] [phone] Care Team Providers Care Field Auto Appraiser Name Role Phone Oral Montero MD Primary Care Provider [phone] Medications allopurinol (ZYLOPRIM) 100 MG tablet Take 100 mg by mouth 1 (one) time each day Active meclizine (ANTIVERT) 25 MG tablet Take 25 mg by mouth 3 (three) times a day if needed for dizziness Active Active Problems Problem Noted Date Diagnosed Date Gout 01/15/2022 Anxiety 01/15/2022 Obesity 01/15/2022 Social History Tobacco Use Types Packs/Day Years Used Date Smoking Tobacco: Never Assessed Sex and Gender Information Value Date Recorded Sex Assigned at Not on file Legal Sex Male 2:56 PM EST Gender Identity Not on file Sexual Orientation Not on file Plan of Treatment Health Maintenance Due Date Last Done Comments Hepatitis B Vaccine (1 of 3 - 19+ 3-dose series) 2005 Influenza Vaccine (#1) 2025 Pneumococcal Vaccine: Peds ( 0 to 5 Years) and At-Risk Patients (6 to 49 Years) Aged Out No longer eligible b ased on patient's age to complete this topic Insurance apt:[address] [place] [id number] [facility] DEBBIE Holt([id number]) [address] [place] [address] [facility] PPO Blue([id number]) Care Teams Field Auto Appraiser Relationship Specialty Start Date End Date Oral Montero MD PCP - General Nephrology 08/14/21
--- NOTE | 2025-04-10 01:28 | ED.MALEGU ---
HPI - Male Genitourinary General Chief complaint: Urogenital-Male Stated complaint: uro gen male Time Seen by Provider: 04/10/25 01:09 Source: patient Mode of arrival: ambulatory Limitations: no limitations History of Present Illness ED Provider: Dr. Tomeka Sweet HPI Narrative: Patient comes to the emergency room stating that he got exposed to possibly a person with STDs. Patient denies any symptoms, denies penile discharge, no abdominal pain or flank pain no dysuria, no fever chills. Related Data Previous Rx's ?Medication ?Instructions ?Recorded amoxicillin 500 mg-potassium 1 tab PO BID #14 tabs 01/13/21 clavulanate 125 mg tablet (Augmentin) azithromycin 500 mg tablet 500 mg PO DAILY 5 days #5 tabs 01/18/21 valacyclovir 1 gram tablet 1,000 mg PO TID 10 days #30 tabs 01/18/21 (Valtrex) artificial tears(hypromellose) 0.5 2 drp ophthalmic (eye) Q2-4H PRN 01/20/21 % eye drops dry eye(s) #15 mL prednisone 20 mg tablet 20 mg PO .COMPLEX #18 tabs 03/19/21 sulfamethoxazole 800 1 tab PO BID 7 days #14 tabs 03/19/21 mg-trimethoprim 160 mg tablet hydroxyzine HCl 25 mg tablet 25 mg PO TID 3 days #9 tabs 03/27/21 allopurinol 100 mg tablet 50 mg (1/2 x 100 mg) PO DAILY #14 02/16/22 tabs amoxicillin 875 mg-potassium 1 tab PO BID 7 days #14 tabs 08/15/22 clavulanate 125 mg tablet cyclobenzaprine 5 mg tablet 5 mg PO BEDTIME PRN muscle spasm 09/21/22 #4 tabs allopurinol 100 mg tablet 100 mg PO DAILY #14 tabs 12/14/22 ibuprofen 600 mg tablet 600 mg PO TID PRN fever or pain 12/14/22 #20 tabs prednisone 50 mg tablet 50 mg PO DAILY #5 tabs 12/14/22 allopurinol 200 mg tablet 200 mg PO DAILY #30 tabs 12/31/22 colchicine 0.6 mg tablet 0.6 mg PO BID #30 tabs 12/31/22 indomethacin 50 mg capsule 50 mg PO QID #30 caps 12/31/22 prednisone 20 mg tablet 40 mg (2 x 20 mg) PO DAILY #14 tabs 12/31/22 naproxen 500 mg tablet 500 mg PO BID PRN pain 7 days #14 03/09/23 tabs acetaminophen 500 mg tablet 500 mg PO Q6H PRN fever or pain 08/22/23 #20 tabs benzonatate 100 mg capsule 100 mg PO TID PRN cough #14 caps 08/22/23 nirmatrelvir 300 mg (150 mg See Rx Instructions PO .COMPLEX 08/25/23 x2)-ritonavir 100 mg tablet,dose #30 ea pack (Paxlovid) indomethacin 50 mg capsule 50 mg PO TID #20 caps 01/06/24 prednisone 50 mg tablet 50 mg PO DAILY 5 days #5 tabs 01/06/24 colchicine 0.6 mg tablet 0.6 mg PO BID #14 tabs 01/28/24 prednisone 50 mg tablet 50 mg PO DAILY #4 tabs 01/28/24 ketorolac 10 mg tablet 10 mg PO BID #7 tabs 04/29/24 amoxicillin 875 mg tablet 875 mg PO BID #14 tabs 05/09/24 naproxen 500 mg tablet (Naprosyn) 500 mg PO BID #20 tabs 05/09/24 colchicine 0.6 mg tablet 0.6 mg PO BID 7 days #14 tabs 11/13/24 prednisone 50 mg tablet 50 mg PO DAILY 4 days #4 tabs 11/13/24 colchicine 0.6 mg tablet 0.6 mg PO BID 7 days #14 tabs 12/10/24 colchicine 0.6 mg capsule 0.6 mg PO DAILY #30 caps 01/10/25 prednisone 20 mg tablet 40 mg (2 x 20 mg) PO DAILY #10 tabs 01/10/25 Allergies Allergy/AdvReac Type Severity Reaction Status Date / Time No Known Allergies (No Known Allergy Verified 04/10/25 00:29 Allergies*) Review of Systems Review of Systems: Constitutional : No Weight loss, No Fever, No Chills, No Night Sweats, No Fatigue, No Malaise ENT/Mouth : No Hearing loss, No Ear Pain, No Nasal Congestion, No Sinus Pain, No Hoarseness, No sore throat, No Rhinorrhea, No Swallowing Difficulty Eyes: No Eye Pain, No Swelling, No Redness, No Foreign Body, No Discharge, No Vision Changes Cardiovascular : No Chest Pain, No SOB, No Dyspnea on Exertion, No Orthopnea, No Edema, No Palpitations Respiratory : No Cough, No Sputum, No Wheezing, No Smoke Exposure, No Dyspnea Gastrointestinal : No Nausea, No Vomiting, No Diarrhea, No Constipation, No abdominal Pain, No Hematochezia, No Melena Genitourinary : no irregular bleeding, No Dysuria, No Urinary Frequency, No Hematuria, No Urinary Incontinence, No Urgency, No Flank Pain, No Urinary Flow Changes, No Hesitancy Musculoskeletal : No joint pain, No Myalgias, No Joint Swelling Skin : No Skin Lesions, No rash Neuro : No Weakness, No Numbness, No Paresthesias, No Loss of Consciousness, No Dizziness, No Headache Psych : No Anxiety/Panic, No Depression, No SI/HI/AH/VH, No Social Issues, Heme/Lymph: No Bruising, No Bleeding,No Lymphadenopathy Endocrine : No Polyuria, No Polydipsia, No Temperature Intolerance PMFSH Past Medical History Medical History Bennett's palsy Gout Surgical History No history of previous surgery Social History Social History Alcohol intake: unknown Patient Tobacco Use Status: Never used Tobacco Substance Use Type: Marijuana Advance Directives: No Advance Directives Information Provided: No Physical Exam Exam: Exam: Appearance: Alert. Oriented X3. No acute distress. Eyes: Pupils equal, round and reactive to light. ENT: Pharynx normal. Neck: Normal inspection. Neck supple. No lymph nodes noted. No crepitus CVS: Normal heart rate and rhythm. Pulses normal. Normal S1 and S2 Respiratory: No respiratory distress. Breath sounds normal. No Wheezing. No rales Abdomen: Soft and nontender. No rigidity. No distention. : Declined by patient Skin: Skin warm and dry. Normal skin color. Normal skin turgor. Extremities: No lower extremity edema. No Lacerations. No Rash Neuro: Oriented X 3. No motor deficit. No sensory deficit. Moving all extremities. No slurred speech. CN 2 through 12 grossly intact Psych: calm, cooperative, normal affect Vital Signs: Vital Signs: Last Vital Signs Temp 97.3 F 04/10/25 00:27 Pulse 75 04/10/25 00:27 Resp 20 04/10/25 00:27 BP 137/79 04/10/25 00:27 Pulse Ox 97 04/10/25 00:27 O2 Del Method Room Air 04/10/25 00:27 BMI result Body Mass Index 26.6 Medical Decision Making Medical Decision Making MDM Narrative: Patient was given the choice of getting prophylaxis antibiotics, patient states that he would prefer for the lab test returned, patient aware it may take couple of days. I discussed with the patient that if he is interested in blood work to rule out HIV, hepatitis, [facility] Patient agrees with plan Declined put exposure prophylaxis Discharge Plan Discharge Clinical Impression: Exposure to STD Patient Disposition: Home, Self-Care Instructions: Safe Sex Practices (ED) Additional Instructions: Please follow-up with your primary care physician tomorrow. If you have any worsening or new symptoms, please return to the emergency room or call 911 Prescriptions: No Action amoxicillin-pot clavulanate [Augmentin] 500-125 mg tablet 1 tab PO BID Qty: 14 0RF artificial tears(hypromellose) 0.5 % drops 2 drp ophthalmic (eye) Q2-4H PRN (Reason: dry eye(s)) Qty: 15 0RF hydroxyzine HCl 25 mg tablet 25 mg PO TID 3 Days Qty: 9 0RF amoxicillin-pot clavulanate 875-125 mg tablet 1 tab PO BID 7 Days Qty: 14 0RF allopurinol 100 mg tablet 50 mg PO DAILY Qty: 14 0RF cyclobenzaprine 5 mg tablet 5 mg PO BEDTIME PRN (Reason: muscle spasm) Qty: 4 0RF allopurinol 200 mg tablet 200 mg PO DAILY Qty: 30 0RF colchicine 0.6 mg tablet 0.6 mg PO BID Qty: 30 0RF indomethacin 50 mg capsule 50 mg PO QID Qty: 30 0RF Rx Instructions: administer with food or milk prednisone 20 mg tablet 40 mg PO DAILY Qty: 14 0RF naproxen 500 mg tablet 500 mg PO BID PRN (Reason: pain) 7 Days Qty: 14 0RF acetaminophen 500 mg tablet 500 mg PO Q6H PRN (Reason: fever or pain) Qty: 20 0RF benzonatate 100 mg capsule 100 mg PO TID PRN (Reason: cough) Qty: 14 0RF Paxlovid 300 mg (150 mg x 2)-100 mg tablets,dose pack See Rx Instructions .ROUTE .COMPLEX Qty: 30 0RF Rx Instructions: take TWO 150 mg tablets of nirmatrelvir with ONE 100 mg tablet of ritonavir twice daily for 5 days prednisone 50 mg tablet 50 mg PO DAILY 5 Days Qty: 5 0RF indomethacin 50 mg capsule 50 mg PO TID Qty: 20 0RF Rx Instructions: administer with food or milk ketorolac 10 mg tablet 10 mg PO BID Qty: 7 0RF Rx Instructions: maximum total duration of 5 days from all oral, intranasal, or parenteral formulations amoxicillin 875 mg tablet 875 mg PO BID Qty: 14 0RF naproxen [Naprosyn] 500 mg tablet 500 mg PO BID Qty: 20 0RF colchicine 0.6 mg tablet 0.6 mg PO BID 7 Days Qty: 14 0RF prednisone 20 mg tablet 40 mg PO DAILY Qty: 10 0RF colchicine 0.6 mg capsule 0.6 mg PO DAILY Qty: 30 0RF ibuprofen 600 mg tablet 600 mg PO TID PRN (Reason: fever or pain) Qty: 20 0RF prednisone 50 mg tablet 50 mg PO DAILY Qty: 5 0RF allopurinol 100 mg tablet 100 mg PO DAILY Qty: 14 0RF colchicine 0.6 mg tablet 0.6 mg PO BID Qty: 14 0RF prednisone 50 mg tablet 50 mg PO DAILY Qty: 4 0RF colchicine 0.6 mg tablet 0.6 mg PO BID 7 Days Qty: 14 0RF prednisone 50 mg tablet 50 mg PO DAILY 4 Days Qty: 4 0RF azithromycin 500 mg tablet 500 mg PO DAILY 5 Days Qty: 5 0RF valacyclovir [Valtrex] 1 gram tablet 1,000 mg PO TID 10 Days Qty: 30 0RF prednisone 20 mg tablet 20 mg PO .COMPLEX Qty: 18 0RF Rx Instructions: 20 mg PO 3 p.o. daily for 3 days followed by 2 p.o. daily for 3 days followed by 1 p.o. daily for 3 days; sulfamethoxazole-trimethoprim 800-160 mg tablet 1 tab PO BID 7 Days Qty: 14 0RF Print Language: Belarusian
[2025-04-10 01:40] VITALS: BP 137/79; PULSE 75; RESP 20; TEMP 36.3; O2SAT 97
[2025-04-10 10:00] LABS: CT PCR Urine NOT DETECTED (Not Detect.); NG PCR Urine NOT DETECTED (Not Detect.)
== END 2025-04-10 01:40 | disposition home or self-care (01) ==
PROVIDERS: Emergency Provider Emergency Medicine
DX: Z20.2 Contact with and (suspected) exposure to infections with a predominantly sexual mode of transmission (principal)
CPT/HCPCS: 87491; 87591; 99282; 99283

== ENCOUNTER 2025-07-27 13:38 | Outpatient (REF) | payer MEDICAID, SELFPAY ==
--- OUTSIDE RECORDS SUMMARY | 2025-07-24 16:32 | XMS_ITS | Encounter Summary ---
Author Organization [facility] Address [address] [place] [address] Care Team Providers Care Ice Cream Freezer Helper Name Role Phone Physician, Pcp Unknown Primary Care Provider Destiny vailable Reason for Referral * Consultation (Routine) - Pending Review Specialty Diagnoses / Procedures Referred By Aidan shine Referred To Contact Urology Lane López MD [address] [place] [id number] Phone: tel: fax: [facility] [address] [place] [address] Phone: tel: fax: Referral ID Status Reason Start Date Expiration Date Visits Requested Visits Authorized [id number] Pending Review Specialty Services Required 07/24/2025 07/24/2026 1 1 Reason for Visit * Reason Comments Rectal Pain Encounter Details Date Type Department Care Team (Late st Contact Info) Description 07/24/2025 4:32 PM EST - 07/24/2025 4:41 PM EST Emergency [facility] Emergency [address] [place] [address] Lane López MD [address] [place] [address] Rectal pain (Primary Dx) Discharge Disposition: Home or Self Care Social History Tobacco Use Types Packs/Day Years Used Date Smoking Tobacco: Never Assessed Sex and Gender Information Value Date Recorded Sex Assigned at Not on file Legal Sex Male 12:58 AM EST Gender Identity Not on file Sexual Orientation Not on file documented as of this encounter Last Filed Vital Signs Vital Sign Reading Time Taken Comments Blood Pressure 137/82 07/24/2025 3:48 PM EST Pulse 82 07/24/2025 3:48 PM EST Temperature 36.6 C (97.9 F) 07/24/2025 3:48 PM EST Respiratory Rate 16 07/24/2025 3:48 PM EST Oxygen Saturation 100% 07/24/2025 3:48 PM EST Inhaled Oxygen Concentration - - Weight 74.8 kg (165 lb) 07/24/2025 3:48 PM EST Height 165.1 cm (5' 5 ) 07/24/2025 3:48 PM EST Body Mass Index 27.46 07/24/2025 3:48 PM EST documented in this encounter Functional Status * Calculated C-SSRS Risk Score (Lifetime/Recent) Answer Date of Assessment Author No Risk Indicated 07/24/2025 3:47 PM EST Viktoria Deutsch RN * [place] Suicide Severity Rating Scale (Screener/Recent Self-Report) Question Answer Date of Assessment Author 1. Wish to be (Past 1 Month) No 025 3:47 PM EST Viktoria Deutsch RN 2. Non-Specific Active Suici carlos Thoughts (Past 1 Month) No 07/24/2025 3:47 PM EST Amaya Deutsch RN 6. Suicidal Behavior (Lifetime) No 3:47 PM EST Viktoria Deutsch RN documented as of this encounter Discharge Instructions * Discharge Instructions* Lane López MD - 07/24/2025 4:33 PM EST Please follow up with urologist for further consult about your prostate. * Attachments The following attachments cannot be sent through Care Everywhere. * Anal Pain ([place]) documented in this encounter Discharge Disposition Disposition Code Departure Means Destination Comment s Home or Self Care documented in this encounter Progress Notes * Viktoria Deutsch RN - 07/24/2025 3:46 PM EST Pt reports rectal pain x3 days, denies trauma, urinary sx or difficulty moving bowels. Denies testicular pain. * Lane López MD - 07/24/2025 3:43 PM EST HPI Chief Complaint Patient presents with Rectal Pain 40-year-old male presents with rectal pain that began three days ago. Patient denies trauma, urinary symptoms, difficulty with bowel movements, and testicular pain. History provided by: Patient No data recorded Patient History Medical History[1] Surgical History[2] Family History[3] Social History Tobacco Use Smoking status: Not on file Smokeless tobacco: Not on file Substance Use Topics Alcohol use: Not on file Drug use: Not on file Review of Systems Review of Systems Physical Exam ED Triage Vitals [07/24/25 1548] Temp Heart Rate Resp BP 36.6 ??C (97.9 ??F) 82 16 137/82 SpO2 Temp Source Heart Rate Source Patient Position 100 % Oral Monitor Sitting BP Location FiO2 (%) Left arm -- Physical Exam Vitals and nursing note reviewed. Constitutional: Appearance: Normal appearance. HENT: Head: Normocephalic and atraumatic. Nose: Nose normal. Mouth/Throat: Mouth: Mucous membranes are moist. Eyes: Extraocular Movements: Extraocular movements intact. Conjunctiva/sclera: Conjunctivae normal. Pupils: Pupils are equal, round, and reactive to light. Cardiovascular: Rate and Rhythm: Normal rate. Pulses: Normal pulses. Pulmonary: Effort: Pulmonary effort is normal. Abdominal: General: Abdomen is flat. Palpations: Abdomen is soft. Musculoskeletal: General: Normal range of motion. Cervical back: Normal range of motion. Skin: General: Skin is warm and dry. Capillary Refill: Capillary refill takes less than 2 seconds. Neurological: General: No focal deficit present. Mental Status: He is alert. Mental status is at baseline. Psychiatric: Mood and Affect: Mood normal. Behavior: Behavior normal. ED Course & MDM Clinical Impressions as of 07/25/25 0051 Rectal pain Medical Decision Making Patient is a 40-year-old male who is evaluated with complaints of rectal pain that began a couple days ago. Patient believes that he may have some hemorrhoids, however has not been formally diagnosed this. I did recommend a rectal exam to further assess the cause of his pain however he deferred at this time. Most likely he is experiencing hemorrhoids. He denies any bright red blood per rectum. Patient relates that he is most aware about prostate issues, specifically prostate cancer. I did tell him that we were unable to run PSA levels and do prostate biopsies in the emergency department. He will be referred to urology in the outpatient setting for further care. Problems Addressed: Rectal pain: acute illness or injury Procedures [1] No past medical history on file. [2] No past surgical history on file. [3] No family history on file. Lane López MD 07/25/25 0051 documented in this encounter Plan of Treatment Scheduled Referrals Name Type Priority Associated Diagnoses Order Schedule Ambulatory referral to Urology Outpatient Referral Routine 1 Occurrence s starting 07/24/2025 until 07/24/2026 documented as of this encounter Visit Diagnoses Diagnosis Rectal pain- Primary Anal or rectal pain documented in this encounter Care Teams Ice Cream Freezer Helper Relationship Specialty Start Date End Date Physician, Pcp Unknown PCP - General 07/24/25 documented as of this encounter
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
[2025-07-27 16:48] LABS: Uric Acid 7.6 mg/dL (3.4-7.0)
[2025-07-27 17:17] LABS: Prostate Specific Antigen 0.97 ng/mL (<0.05-4.0)
--- OUTSIDE RECORDS SUMMARY | 2025-07-27 21:09 | XMS_ITS ---
Author Organization [employer] Address [address] [facility] [address] [place] [address] Care Team Providers Care Rayon Coner Name Role Phone Scott Smith MD Primary Care Provide r Lucinda Chin RN Unavailable [phone] Shital Torres Unavailable CM Complex Status:Identified (Enrolling) Start date:06/03/2025 Enrollment reason:C3 Manual Referral Overview C3 Referral- High ED Utilization Case Team Name Relationship Phone Lucinda Chin RN(Responsible Staff) Registered Nurse Continued Care and Services Coordination
--- OUTSIDE RECORDS SUMMARY | 2025-07-27 21:09 | XMS_ITS ---
Author Organization [employer] Address [address] [place] [address] [address] [place] [address] Care Team Providers Care Cuffer Name Role Phone Scott Smith MD Primary Care Provide r Lucinda Chin RN Unavailable [phone] Shital Torres Unavailable [facility] Complex Status:Identified (Enrolling) Start date:06/03/2025 Enrollment reason:C3 Manual Referral Overview C3 Referral- High ED Utilization . Please outreach to patient. Case Team Name Relationship Phone Shital Torres(Responsible Staff) [phone] Continued Care and Services Coordination
--- OUTSIDE RECORDS SUMMARY | 2025-07-27 21:10 | XMS_ITS | Encounter Summary ---
Author Organization [employer] Address [address] [facility] 7t [place] [address] Care Team Providers Care Drafter Automotive Design Name Role Phone Scott Smith MD Primary Care Provide r Lucinda Chin RN Unavailable [phone] Shital Torres Unavailable Encounter Details Date Type Department Care Team (Latest Contact Info) Description 07/26/2025 Travel Social History Tobacco Use Types Packs/Day [...] Description 08/30/2025 1:30 PM EST Office Visit [facility] [address] [place] [phone] Scott Smith MD [address] [place] [phone] documented as of this encounter Visit Diagnoses Not on filedocumented in this encounter Additional Health Concerns Assessment Noted Time PHQ-9 Depression Total Score: 16 025 11:26 AM EDT documented as of this encounter Care Teams Drafter Automotive Design Relationship Specialty Start Date End Date Scott Smith MD [address] [place] [phone] PCP - General Internal Medicine 08/24/19 Lucinda Chin RN [address] [place] [phone] Registered Nurse Family Medicine 06/03/25 Shital Torres 06/03/25 [facility] 11/06/24 documented as of this encounter
--- OUTSIDE RECORDS SUMMARY | 2025-07-27 21:10 | XMS_ITS | Clinical Summary ---
Author Organization [facility] Address [address] [place] [address] Phone Care Team Providers Care Principal Automation Engineer Name Role Phone Physician, Pcp Unknown Primary Care Provider Destiny vailable Allergies No known active allergies Medications No known medications Encounters Date Type Department Care Team Description 07/24/2025 4:32 PM EST - 07/24/2025 4:41 PM EST Emergency [facility] Emergency [address] [place] [address] Lane López MD Rectal pain (Primary Dx) Discharge Disposition: Home or Self Care from Last 3 Months Social History Tobacco Use Types Packs/Day Years Used Date Smoking Tobacco: Never Assessed Sex and Gender Information Value Date Recorded Sex Assigned at Not on file Legal Sex Male 12:58 AM EST Gender Identity Not on file Sexual Orientation Not on file Last Filed Vital Signs Vital Sign Reading [...] Mass Index 27.46 07/24/2025 3:48 PM EST Plan of Treatment Health Maintenance Due Date Last Done Comments Hepatitis B Vaccines (1 of 3 - 19+ 3-dose series) 2005 HPV Vaccines (1 - 3-dose SCD M series) 2013 Depression Screening 08/18/2024 COVID-19 Vaccine (1 - 2024-2 6 season) 2025 Influenza Vaccine (#1) 2025 05/26/2018 Social Influencers of Health Screening 07/24/2025 Cholesterol Screening (Lipid Panel) 05/14/2029 05/14/2024 DTaP,Tdap,and Td Vaccines (3 - Td or Tdap) 10/19/2034 10/19/2024, 05/26/2018 RSV Immunization Adult Patients (1 - 1-dose 75+ series) 2061 HIV Screening Completed 02/10/2025 Hepatitis C Screening Completed 02/10/2025 HIB Vaccines Aged Out No longer eligi ble based on patient's age to complete this topic Hepatitis A Vaccines Aged Out No long er eligible based on patient's age to complete this topic IPV Vaccines Aged Out No longer eligi ble based on patient's age to complete this topic MMR Vaccines Aged Out No longer eligi ble based on patient's age to complete this topic Meningococcal ACWY Vaccine Aged Out N o longer eligible based on patient's age to complete this topic Meningococcal B Vaccine Aged Out No l onger eligible based on patient's age to complete this topic Pneumococcal Vaccine: Pediatrics (0 to 5 Years) and At-Risk Patients (6 to 49 Years) Aged Out No longer eligible b ased on patient's age to complete this topic RSV Immunization Patients Under 20 months Aged Out No longer eligible b ased on patient's age to complete this topic Varicella Vaccines Aged Out No longer eligible based on patient's age to complete this topic Insurance MEDICAID - [place] Care Teams Principal Automation Engineer Relationship Specialty Start Date End Date Physician, Pcp Unknown PCP - General 07/24/25
--- OUTSIDE RECORDS SUMMARY | 2025-07-27 21:10 | XMS_ITS | Encounter Summary ---
Author Organization [employer] Address [address] [facility] 7t [place] [address] Care Team Providers Care Wet Wash Assembler Name Role Phone Scott Smith MD Primary Care Provide r Lucinda Chin RN Unavailable [phone] Shital Torres Unavailable Encounter Details Date Type Department Care Team (Late st Contact Info) Description 06/09/2025 Orders Only [facility] [address] [place] [address] Provider, MD Alvaro Social History Tobacco Use Types Packs/Day Years [...] Description 08/30/2025 1:30 PM EST Office Visit [facility] [address] [place] [phone] Scott Smith MD [address] [place] [phone] documented as of this encounter Procedures Procedure Name Priority Date/Time Associated Diagnosis Comments EMG Routine 06/08/2025 10:10 AM EDT documented in this encounter Results * EMG (06/08/2025 10:10 AM EDT) us Historical Provider NEUROLOGY ORDERABLES Flora l Result documented in this encounter Visit Diagnoses Not on filedocumented in this encounter Additional Health Concerns Assessment Noted Time PHQ-9 Depression Total Score: 16 025 11:26 AM EDT documented as of this encounter Care Teams Wet Wash Assembler Relationship Specialty Start Date End Date Scott Smith MD [address] [place] [address] [phone] PCP - General Internal Medicine 08/24/19 Lucinda Chin RN [address] [place] [address] [phone] Registered Nurse Family Medicine 06/03/25 Shital Torres 06/03/25 [facility] 11/06/24 documented as of this encounter
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
--- OUTSIDE RECORDS SUMMARY | 2025-07-27 21:10 | XMS_ITS | Clinical Summary ---
Author Organization [facility] Facility Address [address] [place] [address] Care Team Providers Care Drug Inspector Name Role Phone Oral Montero MD Primary Care Provider Medications allopurinol (ZYLOPRIM) 100 MG tablet Take [...] patient's age to complete this topic Insurance apt:[address] [place] [id number] [facility] DEBBIE Holt([id number]) [address] [place] [address] [facility] PPO Blue([id number]) Care Teams Drug Inspector Relationship Specialty Start Date End Date Oral Montero MD PCP - General Nephrology 08/14/21
[2025-07-27 23:30] LABS: CT PCR Urine NOT DETECTED (Not Detect.); NG PCR Urine NOT DETECTED (Not Detect.)
[2025-07-28 04:15] LABS: Syphilis Screen Nonreactive (Nonreactive)
[2025-07-28 04:48] LABS: HIV Num 1 0.06 S/CO (0.00-0.99); ~HepC Num1 0.23 S/CO (0.00-0.79); ~Hepatitis C Antibody Nonreactive (Nonreactive)
== END 2025-07-27 13:39 | disposition home or self-care (01) ==
LOC: HO.HHCL 13:38
PROVIDERS: PCP Internal Medicine; Visit Provider Family Medicine
DX: Z12.5 Encounter for screening for malignant neoplasm of prostate (principal); Z20.2 Contact with and (suspected) exposure to infections with a predominantly sexual mode of transmission; Z82.69 Family history of other diseases of the musculoskeletal system and connective tissue; Z11.4 Encounter for screening for human immunodeficiency virus [HIV]; Z11.59 Encounter for screening for other viral diseases
CPT/HCPCS: 84153; 84550; 86780; 86803; 87389; 87491; 87591